=== PATIENT | male | born 1950 | race Caucasian/White ===

== ENCOUNTER → 2016-10-23 | Outpatient (CLI) | payer MEDICARE ==
--- NOTE | 2016-10-23 12:23 | MR ---
EXAMINATION TYPE: MR lumbar spine wo con DATE OF EXAM: 10/23/2016 COMPARISON: NONE HISTORY: HNP Lspine, Pain CONTRAST: 0 mL intravenous MultiHance. TECHNIQUE: Multiplanar, multisequence images of the lumbar spine were acquired. FINDINGS: L5-S1: There is a small central protrusion. No thecal sac contact is evident. Exiting nerve roots delmi ear normal. No spinal canal stenosis or neural foraminal stenosis is present. L4-L5: There is a large left paracentral disc herniation. This has anterior thecal sac contact. Exiti ng left L4 V nerve root displacement and compression is likely present. Left exiting nerve root is un remarkable. No AP spinal canal stenosis is present. L3-L4: Large broad-based disc bulge is present with anterior thecal sac contact. No AP spinal canal s tenosis present. This may have some subligamentous disc extension of the right paracentral canal post erior to the L3 level. Right L4 nerve root compression is likely present. Left L4 nerve root posterio r displacement is present. No AP spinal canal stenosis is present. L2-L3: There is narrowing of the disc height. No significant disc bulge is present. Mild facet hypert rophy is present on the right. No AP spinal canal stenosis present. Neural foramen are patent. L1-L2: Mild disc bulge is present with anterior thecal sac contact. This may be slightly greater into the right paracentral right lateral direction. Neural foramen are patent. Tiny central protrusion is present in the left paracentral canal with mild anterior thecal sac compression. T12-L1: No significant disc bulge or disc herniation. No spinal canal stenosis. No foraminal stenos is. Neural foramen are patent.. IMPRESSION: 1. Large disc bulge L4-5 with moderate anterior thecal sac compression. Right L4 and to the lesser de gree left L4 compression and displacement is present. 2. Large left paracentral disc herniation extending beyond the endplate of L5 compressing and displac ing the left exiting nerve root L5.
== END | disposition home or self-care (01) ==
LOC: RADMRIMAIN 09:55
PROVIDERS: ATTEND Orthopaedic Surgery Orthopaedic Surgery of the Spine
DX: M51.26 Other intervertebral disc displacement, lumbar region (principal); Z98.890 Other specified postprocedural states
CPT/HCPCS: 72148

== ENCOUNTER → 2018-06-02 | Day surgery (SDC) | payer MEDICARE ==
[2018-05-23 11:59] VITALS: BMI 29.4
[~2018-06-02] MED LIST: LIDOCAINE 1% INJ 10MG/ML (20 ML MDV) SQ ONE; SODIUM CHLORIDE 0.9% 1,000 ML IV SCH; ceFAZolin IN SWFI 2 GM/20 ML SYRINGE IVP ONE
[2018-06-02 13:55] VITALS: RESP 18; TEMP 98.2
--- NOTE | 2018-06-02 15:55 | P.PCN ---
Preoperative Diagnosis: Loop monitor implant Primary physicians: Cornell Weems Goldbeater: Dr. Friedman Indication: Detection of atrial fibrillation Patient was brought to the EP lab in a fasting state. Written informed consent was obtained prior to the procedure. The left pectoral area was prepped and draped per protocol. Intravenous antibiotic was administered preoperatively. A subcutaneous Loop monitor was implanted successfully and the wound was closed per protocol. The device was programmed to detect significant stefanie- arrhythmic and tachy-arrhythmic events, per protocol. Device and programming details: Detection of A. fib Patient underwent EP procedure under conscious sedation/moderate sedation, monitoring of the level of consciousness and physiologic parameters including but not limited to vital signs and oxygenation. Patient tolerated the procedure well without any acute complications. Start time: 1533 Stop time: 1544
[2018-06-02 16:54] VITALS: BP 158/76; PULSE 66
== END ==
LOC: CATHEP 13:06
PROVIDERS: ATTEND Internal Medicine Clinical Cardiac Electrophysiology
DX: I48.91 Unspecified atrial fibrillation (principal); I70.1 Atherosclerosis of renal artery; I12.9 Hypertensive chronic kidney disease with stage 1 through stage 4 chronic kidney disease, or unspecified chronic kidney disease; N18.4 Chronic kidney disease, stage 4 (severe); I47.1 Supraventricular tachycardia; I49.1 Atrial premature depolarization; E78.5 Hyperlipidemia, unspecified; I42.9 Cardiomyopathy, unspecified; I71.2 Thoracic aortic aneurysm, without rupture; Z79.899 Other long term (current) drug therapy; Z88.5 Allergy status to narcotic agent
CPT/HCPCS: 33285; C1764; J2001; J0690; 33282

== ENCOUNTER 2020-06-28 13:16 | Emergency (ER) | payer MEDICARE, BC ==
[2020-06-28 13:32] VITALS: BP 108/80; RESP 20; TEMP 97.8
--- NOTE | 2020-06-28 14:25 | ED ---
Extremity Problem HPI - General Chief complaint: Extremity Problem,Nontraumatic Stated complaint: reaction to meds Time Seen by Provider: 06/28/20 13:40 Source: patient Mode of arrival: wheelchair Limitations: no limitations - History of Present Illness Initial comments: Patient is a 69-year-old male presenting to the emergency Department with complaints of bilateral lower leg burning. Patient was picking up an outpatient pharmacy prescription when he suddenly had some burning in his legs. He just came from a wound center, they tried to apply Medi honey on his legs however he started having some burning sensation so they removed it, cleanse his legs and rewrapped. Patient was then sent to the pharmacy here at the hospital to pickup driver a new prescription. Patient then started screaming out in pain him to the ER for evaluation. Currently patient states he is feeling better, he currently has no more the burning sensation. He denies any other complaints at this time. He denies any recent fever or chills, he is currently seeing the wound center and does have a home visiting nurse. Denies chest pain or shortness of breath. His vitals are stable upon arrival. - Related Data Home Medications Medication Instructions Recorded Confirmed Omeprazole [PriLOSEC] 20 mg PO DAILY 06/23/14 08/18/19 amLODIPine [Norvasc] 10 mg PO DAILY 06/23/14 08/18/19 Metoprolol Succinate (ER) [Toprol 25 mg PO HS 05/23/18 08/18/19 Xl] Krill Oil 500 mg PO DAILY 07/06/19 08/18/19 Previous Rx's Medication Instructions Recorded hydrALAZINE HCL [Apresoline] 50 mg PO TID #90 tab 06/25/14 Allergies Allergy/AdvReac Type Severity Reaction Status Date / Time codeine AdvReac Itching Verified 06/28/20 13:32 Review of Systems ROS Statement: Those systems with pertinent positive or pertinent negative responses have been documented in the HPI. ROS Other: All systems not noted in ROS Statement are negative. 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 APPENDICITIS. History of Any Multi-Drug Resistant Organisms: None Reported Past Surgical History: Tonsillectomy Additional Past Surgical History / Comment(s): 4TH FINGER TOOK FINGER OFF WITH INJURY - RT HNAD PLATE SCREWS. KIDNEY STONE REMOVAL Past Anesthesia/Blood Transfusion Reactions: No Reported Reaction Past Psychological History: Anxiety Smoking Status: Never smoker Past Alcohol Use History: None Reported Past Drug Use History: None Reported - Past Family History Father Family Medical History: Cancer, Prostate Disorder Additional Family Medical History / Comment(s): PROSTATE CANCER, Mother Family Medical History: Cancer Additional Family Medical History / Comment(s): CANCER IN LYMPH NODE Sister(s) Family Medical History: Cancer Additional Family Medical History / Comment(s): OVARIAN CANCER General Exam - General Exam Comments Initial Comments: GENERAL: Patient is well-developed and well-nourished. Patient is nontoxic and in no acute distress. HEAD: Atraumatic, normocephalic. EYES: Pupils equal round and reactive to light, extraocular movements intact, sclera anicteric, conjunctiva are normal. Eyelids were unremarkable. ENT: TMs normal, nares patent, oropharynx clear without exudates. Moist mucous membranes. NECK: Normal range of motion, supple without lymphadenopathy or JVD. LUNGS: Unlabored respirations. Breath sounds clear to auscultation bilaterally and equal. No wheezes rales or rhonchi. HEART: Regular rate and rhythm without murmurs, rubs or gallops. ABDOMEN: Soft, nontender, normoactive bowel sounds. No guarding, no rebound. No masses appreciated. : Deferred MUSCULOSKELETAL: Normal extremities with adequate strength and normal range of motion, no pitting or edema. No clubbing or cyanosis. NEUROLOGICAL: Patient is alert and oriented x 3. Motor and sensory are also intact. Cranial nerves II through XII grossly intact. Symmetrical smile. Normal speech, normal gait. PSYCH: Normal mood, normal affect. SKIN: Warm, Dry, normal turgor. Patient's lower legs are wrapped in bandages, he did not want me to remove these bandages to look at his lower legs. Limitations: no limitations Course Vital Signs 06/28/20 06/28/20 13:26 14:41 Temperature 97.8 F Pulse Rate 114 H 91 Respiratory 20 Rate Blood Pressure 108/80 O2 Sat by Pulse 100 97 Oximetry Medical Decision Making - Medical Decision Making Patient is a 9-year-old male presenting to the ER with complaints of burning in his lower legs. He just came from the wound center. Upon my examination, he states he feels better and currently has no burning and wants to be discharged. He did have wraps and bandages on his legs, he did not want these to be removed to look at his legs. Rest of exam is unremarkable. Patient will be discharged. He'll follow up with wound care. Patient is stable for discharge. Patient is in agreement with this plan of care. Return parameters were discussed with the patient and they verbalized understanding. Case discussed with Dr. kim. Disposition Clinical Impression: Bilateral leg paresthesia Disposition: HOME SELF-CARE Condition: Stable Instructions (If sedation given, give patient instructions): Normal Exam (ED) Additional Instructions: Please return to the Emergency Department if symptoms worsen or any other concerns. Please follow up with your regular doctor as well as wound care. Is patient prescribed a controlled substance at d/c from ED?: No Referrals: Dank Sarabia MD [Primary Care Provider] - 1-2 days
[2020-06-28 14:52] VITALS: PULSE 91
== END 2020-06-28 14:42 | disposition home or self-care (01) ==
LOC: EC 13:16
DX: R20.2 Paresthesia of skin (principal); K21.9 Gastro-esophageal reflux disease without esophagitis; I10 Essential (primary) hypertension; G47.33 Obstructive sleep apnea (adult) (pediatric); Z79.899 Other long term (current) drug therapy; Z99.89 Dependence on other enabling machines and devices; Z88.5 Allergy status to narcotic agent
CPT/HCPCS: 99283

== ENCOUNTER → 2020-10-31 | Day surgery (SDC) | payer MEDICARE, BC ==
[~2020-10-31] MED LIST changes: +LACTATED RINGERS 1,000 ML IV SCH; -LIDOCAINE 1% INJ 10MG/ML (20 ML MDV) SQ ONE; +SODIUM CHLORIDE 0.9% 500 ML 500 ML IV ONE; -ceFAZolin IN SWFI 2 GM/20 ML SYRINGE IVP ONE
[2020-10-31 12:40] VITALS: BP 164/97; PULSE 68; RESP 16; TEMP 98.7
[2020-10-31 12:48] LABS: INR 1.2 (<1.2); Prothrombin Time 12.7 sec (9.0-12.0)
[2020-10-31 12:52] LABS: Calcium 9.3 mg/dL (8.4-10.2); Potassium 3.6 mmol/L (3.5-5.1)
--- NOTE | 2020-10-31 13:58 | P.PCN ---
Preoperative Diagnosis: Procedure was canceled on account of a subtherapeutic INR The patient has had a subtherapeutic INR in September he did not return her p carolee calls nor did he come to the office to get his INRs checked Plan We will call them again today at home to confirm all his medications and the doses He is getting warfarin 2.5 mg tablets. He will take one half tablets daily He will get an INR checked next week with the [address] Amiodarone dose is being reduced to 200 mg by mouth daily All other cardiac medications to continue
== END ==
LOC: CATHEP 11:41
PROVIDERS: ATTEND Internal Medicine Clinical Cardiac Electrophysiology
DX: I48.19 Other persistent atrial fibrillation (principal); E78.5 Hyperlipidemia, unspecified; I12.9 Hypertensive chronic kidney disease with stage 1 through stage 4 chronic kidney disease, or unspecified chronic kidney disease; N18.4 Chronic kidney disease, stage 4 (severe); I42.9 Cardiomyopathy, unspecified; G47.33 Obstructive sleep apnea (adult) (pediatric); K21.9 Gastro-esophageal reflux disease without esophagitis; I47.1 Supraventricular tachycardia; I44.0 Atrioventricular block, first degree; I08.3 Combined rheumatic disorders of mitral, aortic and tricuspid valves; Z88.5 Allergy status to narcotic agent; Z79.899 Other long term (current) drug therapy; Z99.2 Dependence on renal dialysis; Z20.822 Contact with and (suspected) exposure to COVID-19; Z53.9 Procedure and treatment not carried out, unspecified reason
CPT/HCPCS: 80048; 85610; 87635

== ENCOUNTER → 2021-12-11 | Day surgery (SDC) | payer MEDICARE, BC ==
[2021-12-07 10:52] VITALS: BMI 28.8
[~2021-12-11] MED LIST changes: +DEXAMETHASONE SOD PHOSPHATE 4 MG/ML 1 ML VIAL IV ONE; +GELATIN SPONGE,ABSORB (LARGE) 1 EACH SPONGE TOPICAL ONE; +GLYCOPYRROLATE 0.2 MG/ML 2 ML VIAL ONE; +HEPARIN SODIUM,PORCINE 2,000 UNIT in SODIUM CHLORIDE 0.9% 500 ML 500 ML IRRIGATION ONE; +HYDROmorphone 0.5 MG/0.5 ML SYRINGE IVP PRN; +KETAMINE 10 MG/ML 20 ML VIAL ONE; +LABETALOL SYRINGE 5 MG/ML IVP ONE; +LIDOCAINE 1% (10MG/ML) FOR IV START INTRADERMA PRN; +LIDOCAINE 1% INJ 10MG/ML (20 ML MDV) SQ ONE; +MIDAZOLAM 2 MG/2 ML VIAL IVP ONE; +MIDAZOLAM 2 MG/2 ML VIAL ONE; +ONDANSETRON 4 MG/2 ML VIAL IVP ONE; +ONDANSETRON 4 MG/2 ML VIAL IVP PRN; +PROPOFOL 10 MG/ML 20 ML VIAL IV ONE; +ROPIVACAINE 5 MG/ML 30 ML VIAL ONE; +SODIUM CHLORIDE 0.9% 1,000 ML IV ONE; -SODIUM CHLORIDE 0.9% 1,000 ML IV SCH; -SODIUM CHLORIDE 0.9% 500 ML 500 ML IV ONE; +THROMBIN (BOVINE) 5,000 UNIT VIAL TOPICAL ONE; +ceFAZolin 2,000 MG in SODIUM CHLORIDE 0.9% 500 ML 500 ML IRRIGATION ONE; +fentaNYL (PF) 50 MCG/ML 2 ML AMP IVP ONE; +fentaNYL (PF) 50 MCG/ML 2 ML AMP ONE
[2021-12-11 13:01] LABS: HCT 38.1 % (39.0-53.0); HGB 12.4 gm/dL (13.0-17.5); MCH 30.9 pg (25.0-35.0); MCHC 32.6 g/dL (31.0-37.0); MCV 94.8 fL (80.0-100.0); Mean Platelet Volume 8.4; Platelet Count 201 k/uL (150-450); RBC 4.02 m/uL (4.30-5.90); RDW 14.3 % (11.5-15.5); WBC 9.6 k/uL (3.8-10.6)
[2021-12-11 13:09] LABS: Calcium 8.9 mg/dL (8.4-10.2); Potassium 4.2 mmol/L (3.5-5.1)
[2021-12-11 13:34] LABS: INR 1.4 (<1.2); Prothrombin Time 14.9 sec (9.0-12.0)
--- NOTE | 2021-12-11 15:04 | P.ANPRN ---
Procedure Note - Anesthesia - Nerve Block Performed Left Supraclavicular Single Date of Procedure: 12/11/21 Procedure Start Time: 14:40 Procedure Stop Time: 14:49 Location of Patient: PreOp Indication: Acute Post-Operative Pain, Requested by Surgeon Specifically requested for management of pain by DrOphelia: Ac Duque Sedation Type: Sedate with meaningful contact maintained Preparation: Sterile Prep Position: Sitting Needle Types: Facet Needle Gauge: 20 Ultrasound used to visualize needle placement: Yes Ultrasound used to observe medication spread: Yes Injectate: 0.5% Ropivacaine (see comment for volume) Blood Aspirated: No Pain Paresthesia on Injection Noted: No Resistance on Injection: Normal Image Stored and Saved: Yes Events: Uneventful and Well Tolerated (25 mls of Ropivacaine 0.5%)
[2021-12-11 18:54] VITALS: TEMP 96.7
[2021-12-11 19:08] VITALS: RESP 16
[2021-12-11 19:35] VITALS: BP 139/87; PULSE 95
--- NOTE | 2021-12-12 17:43 | P.OP ---
Date of Procedure: 12/11/21 Preoperative Diagnosis: ESRD Postoperative Diagnosis: same Procedure(s) Performed: Left upper extremity brachiocephalic fissure creation Anesthesia: regional, local Surgeon: Ac Duque Estimated Blood Loss (ml): 25 Pathology: none sent Condition: stable Disposition: PACU Indications for Procedure: 71-year-old gentleman with history of ESRD on hemodialysis via a right-sided chest catheter as well as previous Endovascular fistula creation on the left presents to the hospital for brachiocephalic fistula due to the fact that his previous fistula has failed. He had ultrasound that demonstrated good size cephalic vein above the elbow and therefore he presents for brachiocephalic fistula creation. Operative Findings: Dense adhesions and scarring at the brachial artery due to previous interventions. Description of Procedure: After written and informed consent was obtained from the patient the patient was brought to the operative suite and laid in a supine position. The left arm was prepped and draped in the usual sterile fashion after appropriate anesthesia was performed per the anesthesiologist. Utilizing ultrasound the cephalic vein was visualized and marked and shown to be good size. A transverse incision was then created with a 15 blade scalpel just proximal to the elbow and dissection was carried down to the brachial artery which was dissected free in a circumferential manner. Proximal distal control was then obtained with vessel loops. Attention was then placed back to the cephalic vein which was located and dissected free in a circumferential manner distally to the elbow. At the elbow it was ligated with silk suture. Further dissection was carried around the vein and the vein was brought over to the brachial artery. Serial dilation was then performed on the vein and good backbleeding was noted. Patient was administered 3000 units of heparin and the brachial artery was clamped at the proximal and distal aspect. Utilizing 11 blade scalpel and arteriotomy was created and extended with Pott Noland scissors. There was good brisk backbleeding noted from the brachial artery and pulsatile blood flow visualized from the proximal aspect. The vein was then spatulated and an end-to-side anastomosis was created with a 7-0 Prolene suture. Prior to last sutures being placed the control was released from the vein revealing good backbleeding and distal control on the brachial artery was released revealing good back flow. The proximal control was then released and good pulsatile blood flow was visualized in the fistula and final sutures were secured. The area was copiously irrigated with antibiotic solution. Hemostasis was assured. The vessels were then interrogated with Doppler which demonstrated good multiphasic signal distal to the anastomosis as well as positive bruit within the vein consistent with good fistula creation. Under ultrasound there was pulsatile flow noted in the cephalic vein. The incision was then closed in a multilayer fashion. The skin was cleansed and dressings were placed. Patient does procedure well and was sent to PACU for recovery.
== END ==
LOC: OR 11:37
PROVIDERS: ATTEND Surgery
DX: T82.898A Other specified complication of vascular prosthetic devices, implants and grafts, initial encounter (principal); I12.0 Hypertensive chronic kidney disease with stage 5 chronic kidney disease or end stage renal disease; N18.6 End stage renal disease; Z99.2 Dependence on renal dialysis; I25.10 Atherosclerotic heart disease of native coronary artery without angina pectoris; I10 Essential (primary) hypertension; K21.9 Gastro-esophageal reflux disease without esophagitis; I48.91 Unspecified atrial fibrillation; E21.3 Hyperparathyroidism, unspecified; G62.9 Polyneuropathy, unspecified; G47.33 Obstructive sleep apnea (adult) (pediatric); N28.89 Other specified disorders of kidney and ureter; E55.9 Vitamin D deficiency, unspecified; Z98.890 Other specified postprocedural states; Z80.9 Family history of malignant neoplasm, unspecified; Z95.818 Presence of other cardiac implants and grafts; Z79.82 Long term (current) use of aspirin; Z79.01 Long term (current) use of anticoagulants; Z79.899 Other long term (current) drug therapy; Z88.5 Allergy status to narcotic agent; Z91.018 Allergy to other foods
CPT/HCPCS: 64999; 80048; 85027; 85610; 36821; J2250; J1644; J1100; J0690 ×2; J2405; J3010; J2795; J2704

== ENCOUNTER → 2023-01-17 | Outpatient (CLI) | payer MEDICARE, BC ==
--- NOTE | 2023-01-17 12:38 | CT ---
EXAMINATION TYPE: CT chest w con CT DLP: 461.3 mGycm, Automated exposure control for dose reduction was used. DATE OF EXAM: 01/17/2023 12:20 PM COMPARISON: None CLINICAL INDICATION:Male, 72 years old with history of C64.1 KIDNEY CA D41.02; PHH, renal ca TECHNIQUE: Multiple axial images were obtained through the chest following the administration of 80 c c of Isovue 300. Coronal and sagittal reformats reviewed. FINDINGS: LUNGS/ PLEURA: No pleural effusion, pneumothorax, focal consolidation. Left upper lobe 0.9 cm pulmona ry nodule (series 3, image 31). AIRWAY: Patent and unremarkable.. HEART: Mildly prominent. No pericardial effusion. Moderate coronary artery calcifications. MEDIASTINUM: No gross evidence of adenopathy. VASCULATURE: Aneurysm dilatation of the ascending thoracic aorta measuring up to 4.2 cm. Ectasia of the aortic root at 3.9 cm. The descending thoracic aorta measures up to 2.8 cm. Mild atherosclerotic calcification of the aorta and its branches. MUSCULOSKELETAL: Mild disc degeneration changes are present throughout the thoracolumbar spine. No ac garrett osseous abnormality. No aggressive osseous lesion. SOFT TISSUES/LYMPH NODES: Loop recorder within the left chest wall. LOWER NECK: No significant findings. UPPER ABDOMEN: Please see CT abdomen from the same date for findings. IMPRESSION: 1. No acute thoracic process. 2. Single left upper lobe 0.9 cm pulmonary nodule. Further evaluation with PET/CT is recommended. 3. Ascending thoracic aortic aneurysm measuring up to 4.2 cm.
--- NOTE | 2023-01-17 12:49 | CT ---
EXAMINATION TYPE: CT abdomen wo/w con CT DLP: 1870 mGycm, Automated exposure control for dose reduction was used. DATE OF EXAM: 01/17/2023 12:20 PM COMPARISON: CT abdomen pelvis 06/24/2014 CLINICAL INDICATION:Male, 72 years old with history of C64.1 KIDNEY CA D41.02; renal ca TECHNIQUE: Multiphase CT of the abdomen following the administration of 80 cc of Isovue 300 IV contr ast material and oral contrast. Coronal and sagittal reformats were performed. FINDINGS: LOWER CHEST: Please see dedicated CT chest for findings ABDOMEN LIVER: Unremarkable GALLBLADDER AND BILE DUCTS: Cholelithiasis. No biliary ductal dilatation. PANCREAS: Unremarkable. SPLEEN: Unremarkable. ADRENAL GLANDS: Unremarkable. KIDNEYS AND URETERS: No hydronephrosis. Atrophy of both kidneys. Nonobstructive left renal calculi m easuring up to 3 mm. A total of 3 left calculi. Left exophytic superior pole 1.7 cm cyst. Hyperdense nonenhancing 1.3 cm partially exophytic right mid kidney proteinaceous/hemorrhagic cyst. Additional n onenhancing right superior pole partially exophytic 0.9 cm pronation/hemorrhagic cyst. Left mid kidne y exophytic 1.1 cm nonenhancing cyst. Left lower pole exophytic nonenhancing 2.0 cm hemorrhagic/prote inaceous cyst. Right superior pole irregular heterogenous lytic enhancing partially exophytic mass wi th calcification identified measuring 4.1 x 3.7 cm. STOMACH AND BOWEL: Stomach and duodenum are unremarkable. No focal wall thickening or surrounding inf lammatory changes. The appendix is within normal limits. No evidence of bowel obstruction. PERITONEUM: No evidence of pneumoperitoneum or free fluid. VASCULATURE: Mild atherosclerotic calcifications are present throughout the abdominal aorta and its b ranches. No evidence of aortic aneurysm. MUSCULOSKELETAL: No acute osseous abnormalities. Moderate disc degeneration changes are present throu ghout the thoracolumbar spine. Grade 1 anterolisthesis of L5 and S1 with bilateral pars defects. Telemarketing Representative laure superior endplate compression deformity of the L2 vertebral body with approximately 10% height lo ss and no retropulsion. Levoscoliotic curvature of the thoracolumbar spine. No aggressive osseous les ion. LYMPH NODES: No gross evidence for lymphadenopathy. SOFT TISSUE/ABDOMINAL WALL: Unremarkable IMPRESSION: 1. Right superior pole exophytic heterogenous enhancing 4.1 cm mass concerning for renal cell carcin cristino. 2. Bilateral hyperdense renal lesions without enhancement consistent with proteinaceous/hemorrhagic c yst. 3. Nonobstructive left renal calculi. 4. No pathologically enlarged lymph nodes identified. 5. Cholelithiasis.
== END | disposition home or self-care (01) ==
LOC: RADCTMAIN 10:54
PROVIDERS: ATTEND Urology
DX: C64.1 Malignant neoplasm of right kidney, except renal pelvis (principal); D41.02 Neoplasm of uncertain behavior of left kidney; I71.21 Aneurysm of the ascending aorta, without rupture; N20.0 Calculus of kidney; N28.89 Other specified disorders of kidney and ureter; K80.20 Calculus of gallbladder without cholecystitis without obstruction; R91.1 Solitary pulmonary nodule
CPT/HCPCS: 71260; 74170; Q9967

== ENCOUNTER → 2023-03-14 | Outpatient (CLI) | payer MEDICARE, BC ==
--- NOTE | 2023-03-15 12:20 | PE ---
EXAMINATION TYPE: PET CT fusion skull to thigh DATE OF EXAM: 03/14/2023 CLINICAL INDICATION:Male, 72 years old with history of C64.9; TECHNIQUE: Following the intravenous administration of 11.39 mCi of F-18 FDG, whole body images are performed from the skull base to the midthigh. Images are reviewed on the computer in the coronal, axial, and sagittal planes. Reconstructed rotating images are created on independent workstation and reviewed on the computer. A non-contrast CT is performed in conjunction with the PET scan. Glucose level 111 mg/dL CT DLP: 706.4 mGycm, Automated exposure control for dose reduction was used. COMPARISON: CT 01/17/2023, PET/CT None, FINDINGS: Mediastinal SUV mean is 2.8. Hepatic parenchyma SUV mean is 3.4. SKULL BASE AND NECK: No suspicious radiotracer activity. CHEST, MEDIASTINUM, AND HILAR REGION: Similar size to the left upper lobe pulmonary nodule Max SUV 1.9. No additional suspicious lesions. ABDOMEN AND PELVIS: No suspicious radiotracer activity. MUSCULOSKELETAL STRUCTURES: No suspicious radiotracer activity. OTHER CT: Heart is mildly enlarged for size. Atherosclerosis of the arterial vasculature including th e carotid bifurcations and coronary arteries. Cholelithiasis. Atrophic kidneys with renal cysts and n onobstructing calculi. Fat-containing inguinal hernias right greater than left. Few scattered colonic diverticula. Small hiatal hernia. IMPRESSION: Left upper lobe pulmonary nodule with FDG activity below background levels. Size is stable. Surveilla nce imaging at a minimum should be performed in 3-6 months to ensure stability. Bronchoalveolar carci noma can have low metabolic activity versus granulomatous change is the differential. Alternatively c onsider robotic tissue sampling.
== END | disposition home or self-care (01) ==
LOC: RADPETMAIN 06:56
PROVIDERS: ATTEND Urology
DX: C64.9 Malignant neoplasm of unspecified kidney, except renal pelvis (principal); R91.1 Solitary pulmonary nodule
CPT/HCPCS: 78815; A9552

== ENCOUNTER → 2023-10-27 | Outpatient (CLI) | payer MEDICARE, BC ==
--- NOTE | 2023-10-28 13:48 | PE ---
EXAMINATION TYPE: PET CT fusion skull to thigh DATE OF EXAM: 10/27/2023 COMPARISON: CT abdomen 01/17/2023 Prior PET/CT: 03/14/2023 HISTORY: Right renal cancer TECHNIQUE: Following the intravenous administration of 12.87 mCi of F-18 FDG, whole body images are performed from the skull base to the midthigh. Images are reviewed on the computer in the coronal, a xial, and sagittal planes. Reconstructed rotating images are created on independent workstation and reviewed on the computer. A localization and attenuation correction CT is performed in conjunction with the PET scan. There appears to be multiple areas of muscular activity. This limits the examination. DLP: 742.85 mGycm SCAN: Subsequent Blood glucose: 171 mg/dL Average Mediastinum SUV: 1.72 Average Liver SUV: 2.38 FINDINGS: NECK: There is some uptake within the anterior left submandibular gland, image 48, SUV 3.22. THORAX: Suspicious uptake not identified ABDOMEN: There is focal uptake in the superior medial right kidney compatible with the patient's repo rted neoplasm. This has an SUV of 4.06. PELVIS: No abnormal uptake OSSEOUS STRUCTURES: No abnormal uptake LOCALIZATION CT: Prostate is prominent. There is likely spondylolysis at L5. Nonobstructing renal sto miles on the posterior lateral left mid kidney. Kidneys appear small compatible some renal failure. Cho lelithiasis is present. COMPARISON: Findings appear similar comparison suspicious change is not identified. IMPRESSION: 1. Uptake within the superior medial pole right kidney compatible with the patient's renal neoplasm. 2. Suspicious metastatic disease not identified. 3. Examination is limited with excessive muscular activity and uptake identified.
== END | disposition home or self-care (01) ==
LOC: RADPETMAIN 07:53
PROVIDERS: ATTEND Urology
DX: C64.1 Malignant neoplasm of right kidney, except renal pelvis (principal)
CPT/HCPCS: 78815; A9552

== ENCOUNTER → 2024-08-13 | Outpatient (CLI) | payer MEDICARE, BC ==
--- NOTE | 2024-08-14 22:35 | PE ---
EXAMINATION TYPE: PET CT fusion skull to thigh DATE OF EXAM: 08/13/2024 CLINICAL INDICATION:Male, 74 years old with history of C64.1 KIDNEY CANCER; TECHNIQUE: Following the intravenous administration of 10.03 mCi of F-18 FDG, whole body images are performed from the skull base to the midthigh. Images are reviewed on the computer in the coronal, axial, and sagittal planes. Reconstructed rotating images are created on independent workstation and reviewed on the computer. A non-contrast CT is performed in conjunction with the PET scan. Glucose level 93 mg/dL CT DLP: 797.19 mGycm, Automated exposure control for dose reduction was used. COMPARISON: CT 07/15/2024, 01/17/2023, PET/CT 10/27/2023, 03/14/2023, MRI: None FINDINGS: Mediastinal SUV mean is 2.0. Hepatic parenchyma SUV mean is 2.4. SKULL BASE AND NECK: No suspicious radiotracer activity. CHEST, MEDIASTINUM, AND HILAR REGION: Mildly increased size of lingular 1.3 cm solid pulmonary nodule dating back to CT chest 01/17/2023. Pr eviously measured up to 1.0 cm. This demonstrates a maximum SUV of 2.7, previously 0.9. ABDOMEN AND PELVIS: Redemonstration of right renal upper pole mass measuring grossly 4.9 x 4.0 cm with FDG activity. Demo nstrates a maximum SUV of 7.2, previously 4.3. MUSCULOSKELETAL STRUCTURES: Post fixation changes of the right proximal femur with redemonstration of focal FDG activity at the f racture site with a maximum SUV of 7.4. Previously 3.8. Favored to be related to traumatic change. No other suspicious radiotracer activity within the osseous structures. OTHER CT: Bilateral carotid bulb calcifications. Left anterior chest wall loop recorder. Cardiomegaly with trace pericardial effusion. Small right pleural effusion. Mild coronary artery calcifications. Stable ascending thoracic aortic aneurysm measuring up to 4.5 cm. Stable aneurysmal dilatation of the main pulmonary measurement of 4.0 cm suggesting pulmonary arterial hypertension. Small aortic valvul ar calcifications. Mild atherosclerotic calcification of the aorta and its branches. Multilevel degen erative changes of the lumbar spine. Cholelithiasis. Atrophy of both kidneys with cortical cysts. Non obstructing bilateral renal calculi. Fat filled right inguinal hernia. Scattered colonic diverticulos is of the distal colon without evidence for acute diverticulitis. IMPRESSION: 1. Increasing size and FDG activity of a right renal upper pole mass most consistent with reported r enal cell cancer. 2. Marginal increase in size and mildly FDG activity of lingular pulmonary nodule from prior CT. Thi s is indeterminate with etiologies including metastasis versus primary lung cancer versus other. [facility], , 08/14/2024 10:33 PM
== END | disposition home or self-care (01) ==
LOC: RADPETMAIN 08:17
PROVIDERS: ATTEND Urology
DX: C64.1 Malignant neoplasm of right kidney, except renal pelvis (principal); R91.1 Solitary pulmonary nodule; K57.30 Diverticulosis of large intestine without perforation or abscess without bleeding; K40.90 Unilateral inguinal hernia, without obstruction or gangrene, not specified as recurrent; N20.0 Calculus of kidney; N28.1 Cyst of kidney, acquired
CPT/HCPCS: 78815; A9552

== ENCOUNTER 2024-09-24 10:52 | Day surgery (SDC) | payer MEDICARE, BC ==
[2024-09-23 12:40] VITALS: BMI 30.5
[~2024-09-24 10:52] MED LIST changes: -GELATIN SPONGE,ABSORB (LARGE) 1 EACH SPONGE TOPICAL ONE; -GLYCOPYRROLATE 0.2 MG/ML 2 ML VIAL ONE; -HEPARIN SODIUM,PORCINE 2,000 UNIT in SODIUM CHLORIDE 0.9% 500 ML 500 ML IRRIGATION ONE; -KETAMINE 10 MG/ML 20 ML VIAL ONE; -LABETALOL SYRINGE 5 MG/ML IVP ONE; -LIDOCAINE 1% (10MG/ML) FOR IV START INTRADERMA PRN; -LIDOCAINE 1% INJ 10MG/ML (20 ML MDV) SQ ONE; -MIDAZOLAM 2 MG/2 ML VIAL IVP ONE; -MIDAZOLAM 2 MG/2 ML VIAL ONE; -ONDANSETRON 4 MG/2 ML VIAL IVP PRN; -PROPOFOL 10 MG/ML 20 ML VIAL IV ONE; -ROPIVACAINE 5 MG/ML 30 ML VIAL ONE; -SODIUM CHLORIDE 0.9% 1,000 ML IV ONE; -THROMBIN (BOVINE) 5,000 UNIT VIAL TOPICAL ONE; -ceFAZolin 2,000 MG in SODIUM CHLORIDE 0.9% 500 ML 500 ML IRRIGATION ONE; -fentaNYL (PF) 50 MCG/ML 2 ML AMP IVP ONE; -fentaNYL (PF) 50 MCG/ML 2 ML AMP ONE
[2024-09-24] MEDS: IV FLUID CONTINUATION 1,000 ML IV ONE (11:59)
[2024-09-24] MEDS: SODIUM CHLORIDE 0.9% 500 ML 500 ML IV ONE (12:01)
[2024-09-24] MEDS ORDERED: ePHEDrine 50 MG/ML 1 ML VIAL ONE (12:08)
[2024-09-24] MEDS ORDERED: PHENYLEPHRINE 10 MG/ML VIAL ONE (12:08)
[2024-09-24] MEDS ORDERED: FLUMAZENIL 0.1 MG/ML 5 ML VIAL IVP ONE (12:08)
[2024-09-24] MEDS ORDERED: LIDOCAINE 1% INJ 10MG/ML (20 ML MDV) ONE (12:08)
[2024-09-24] MEDS ORDERED: SUCCINYLCHOLINE CHLORIDE 200 MG/10 ML VIAL IV ONE (12:08)
[2024-09-24] MEDS ORDERED: GLYCOPYRROLATE 0.2 MG/ML 2 ML VIAL ONE (12:08)
[2024-09-24] MEDS ORDERED: PROPOFOL 10 MG/ML 20 ML VIAL IV ONE (12:08)
[2024-09-24] MEDS ORDERED: ROCURONIUM 10 MG/ML (5 ML VIAL) IV ONE (12:08)
[2024-09-24] MEDS ORDERED: fentaNYL (PF) 50 MCG/ML 2 ML AMP ONE (12:08)
[2024-09-24] MEDS ORDERED: NEOSTIGMINE 1 MG/ML 10 ML VIAL ONE (12:08)
[2024-09-24] MEDS ORDERED: MIDAZOLAM 2 MG/2 ML VIAL ONE (12:08)
--- NOTE | 2024-09-24 13:33 | P.PCN ---
Date of Procedure: 09/24/24 Operative Findings: Preoperative Diagnosis: Lingular mass, 11x11 mm in size, PET avid Postoperative Diagnosis: Same Procedure(s) Performed: Flexible bronchoscopy Robotic-assisted bronchoscopy and addition to radial ultrasound evaluation of the pulmonary lingular nodule Robotic-assisted transbronchial biopsies, transbronchial needle aspirate of lingular nodule Robotic assisted bronchioloalveolar lavage of the lingular Anesthesia: CARMITAA Surgeon: Johnna Campbell Estimated Blood Loss (ml): 0 Pathology: other Condition: stable Disposition: same day Operative Findings: A physical exam was performed. Informed consent was obtained from the patient after explaining all the risks (pneumothorax, life threatening bleeding, infection and adverse effects due to medications), benefits and alternatives to the procedure which the patient appeared to understand and so stated. The patient was connected to the monitoring devices. General anesthesia was induced and the patient was intubated by anesthesia. A final timeout was performed and the procedure confirmed by the attending staff bronchoscopist. The bronchoscope was inserted and the airway examined. The trachea was within normal limits. Bridget was sharp. Examination of the right setting of the right upper lobe bronchus, bronchus intermedius, right middle lobe and right lower lobe bronchus and the various 10 segments on the right and one of the obstruction within normal limits. Examination of the left side showed a normal proximal left mainstem bronchus. The left upper lobe bronchus, the left lower lobe bronchus and the various 8 segments on the left were essentially within normal limits. There was no evidence of any endobronchial tumors. No significant mucosal abnormalities. The flexible bronchoscope was removed and the robotic bronchoscope was inserted. Registration was completed. I next guided the robotic bronchoscope using the navigation system into the superior segment of the lingular segment. Once in proper position, the bronchoscope was frozen. The radial EBUS probe was placed through the bronchoscope and confirmed abnormal u/s images vs normal lung. Bone removed U/S evaluation was then used to reconfirm location. Transbronchial needle aspirate of the lingular mass was done, a total of 2 passes and the adequacy of the samples were confirmed by pathology at the bedside. The transbronchial needle aspirate was done using a 21-gauge needle. Subsequently, an additional 2 transbronchial needle aspirates of the lingular mass was done in the samples were placed in cellblock. Forceps were next introduced through working channel and extended the appropriate distance and 2 transbronchial biopsies were performed using fluoroscopic guidance. The u/s probe was then reinserted to confirm location. When confirmed this process was repeated for a total of 6 transbronchial biopsies and a cloud biopsy of the area was done. Following that, a BAL of the left upper lobe was also done. A total of 60 cc of fluid was infused and 10 cc was aspirated and the aspirate was bloody amd it clotted Fluoroscopic check for pneumothorax was negative upon completion of the procedure. There was 0 ml blood loss with the procedure. The robotic catheter was removed. The flexible bronchoscope was inserted. Therapeutic airway suctioning was done. There was no evidence of an endobronchial bleed. The flexible bronchoscope was removed. FINDINGS: 1 The airways appeared normal 2 Successful navigation, ultrasonographic identification, and biopsies of lingular nodule 3 The the radial ultrasound view was concentric RECOMMENDATIONS: Await pathology and cytology results The referring physician will be alerted to the results when available. The patient was advised to follow up with the referring physician with the biopsy results
--- NOTE | 2024-09-24 13:41 | FL ---
EXAMINATION TYPE: FL bronchoscopy DATE OF EXAM: 09/24/2024 FLUOROSCOPY BRONCH LEFT UPPER LOBE W/ BX TAKEN FL TIME 1 MIN 21.9 SECONDS, DAP [id number], 6 IMAGES SENT INTO PACS, DR MCMILLAN 6 images are submitted and demonstrate sampling from the left lower lung. A loop recorder device is n oted. [facility], Workstation: [facility], 09/24/2024 1:39 PM
[2024-09-24 14:14] VITALS: TEMP 97.1
--- NOTE | 2024-09-24 14:27 | XR ---
EXAMINATION TYPE: XR chest 1V DATE OF EXAM: 09/24/2024 COMPARISON: NONE CLINICAL INDICATION: Male, 74 years old with history of post bx; TECHNIQUE: Single frontal view of the chest is obtained. FINDINGS: Heart moderately enlarged. Loop recorder device projects over the left side of the chest. Diffuse interstitial densities without consolidation, pleural effusion, or pneumothorax. IMPRESSION: Moderate cardiomegaly. With the interstitial densities, correlate to exclude developing CHF. No pneumothorax seen. [facility], , 09/24/2024 2:25 PM
[2024-09-24 15:00] VITALS: RESP 16
[2024-09-24 15:17] VITALS: BP 133/75; PULSE 65
--- NOTE | 2024-09-24 15:42 | CT ---
EXAMINATION TYPE: CT Chest wo ION protocol DATE OF EXAM: 09/24/2024 11:29 AM COMPARISON: Head CT 08/13/2024 Multiple CTs of the chest with most recent on . CLINICAL INDICATION: Male, 74 years old with history of ION bronchoscopy; [facility], PRE ION BRONCHOSCOPY TECHNIQUE: Multiple axial images were obtained through the chest. Sagittal and coronal reformats were created for review. Thin cut sections for bronchoscopic navigation. No contrast. CT DLP: 562 mGycm, Automated exposure control for dose reduction was used. FINDINGS: Heart remains borderline enlarged with three-vessel coronary artery calcifications. No pericardial ef fusion. Mild aortic valve calcification. A large caliber main right and left pulmonary arteries measuring up to 2.8 cm suggest underlying pulm onary arterial hypertension. Aneurysm ascending aorta 4.3 cm. Conventional arch vessel branching anatomy. Scattered prominent nonenlarged mediastinal lymph nodes throughout. Mild emphysematous change. Mild diffuse bronchial wall thickening. Loop recorder device anterior left chest wall. Redemonstrated 1.4 cm inferior lingular pulmonary nodule. Some mild septal lines and int erstitial changes of the lower lungs could represent some mild fibrosis or mild pulmonary vascular co ngestion. Tiny hiatal hernia. Partially visualized upper pole right renal mass. Underlying gallstones measuring up to 1.9 cm. Bilateral renal cysts also noted. Bones: DISH lower thoracic spine. Mild superior endplate deformity at T4 has a chronic appearance. IMPRESSION: 1. 1.4 cm inferior lingular pulmonary nodule. Imaging for endobronchial navigation biopsy. Partially visualized right upper pole renal mass. 2. COPD with mild emphysema. Pulmonary arterial hypertension. Borderline cardiomegaly, 3 vessel CAD, and some mild interstitial changes of the lower lungs. Correlate to exclude early fluid overload. 3. Tiny hiatal hernia and underlying cholelithiasis. [facility], , 09/24/2024 3:39 PM
== END 2024-09-24 15:49 | disposition home or self-care (01) ==
LOC: ORWHC2ENDO 10:52
PROVIDERS: ATTEND Internal Medicine Critical Care Medicine
DX: D76.3 Other histiocytosis syndromes (principal); R04.89 Hemorrhage from other sites in respiratory passages; I48.20 Chronic atrial fibrillation, unspecified; I13.2 Hypertensive heart and chronic kidney disease with heart failure and with stage 5 chronic kidney disease, or end stage renal disease; I50.9 Heart failure, unspecified; N18.6 End stage renal disease; Z99.2 Dependence on renal dialysis; I25.10 Atherosclerotic heart disease of native coronary artery without angina pectoris; I27.21 Secondary pulmonary arterial hypertension; E78.00 Pure hypercholesterolemia, unspecified; G47.33 Obstructive sleep apnea (adult) (pediatric); J43.9 Emphysema, unspecified; K21.9 Gastro-esophageal reflux disease without esophagitis; D64.9 Anemia, unspecified; F41.9 Anxiety disorder, unspecified; Z79.01 Long term (current) use of anticoagulants; Z79.899 Other long term (current) drug therapy; Z85.528 Personal history of other malignant neoplasm of kidney; Z88.5 Allergy status to narcotic agent
CPT/HCPCS: 88305; 88342; 88341; 71045; 71250; 31628; 31629; 31624; 31627; 31654; J2250; J0330; J2710; J2003; J3010; J2704; J2371; J1596; S2900

== ENCOUNTER 2024-09-25 19:02 | Inpatient (IN) | payer MEDICARE, BC ==
--- NOTE | 2024-09-25 19:50 | ED ---
Nausea/Vomiting/Diarrhea HPI - General Chief complaint: Nausea/Vomiting/Diarrhea Stated complaint: NVD Time Seen by Provider: 09/25/24 19:13 Source: patient, EMS, RN notes reviewed Mode of arrival: EMS Limitations: no limitations - History of Present Illness Initial comments: This is a 74-year-old male who presents to the emergency department for nausea, vomiting, and diarrhea. Patient states that this started 2 days ago. He last threw up this morning but does not currently feel nauseous. He had a bronchoscopy yesterday due to a lung mass, but states that symptoms started before that. Patient does appear very comfortable with labored breathing. He had an oxygen saturation of around 89% on arrival and was placed on a nasal cannula. Patient does not wear oxygen at home. He is on hemodialysis Saturday, Saturday, and Saturday, but did miss his session today. MD complaint: nausea, vomiting, diarrhea - Related Data Home Medications Medication Instructions Recorded Confirmed Warfarin [Coumadin] 4.5 mg PO QAM 10/31/20 09/23/24 FLUoxetine HCL [PROzac] 20 mg PO QAM 12/07/21 09/23/24 Gabapentin [Neurontin] 100 mg PO QAM 12/07/21 09/23/24 busPIRone HCL [Buspirone HCl] 15 mg PO QAM 12/07/21 09/23/24 Omeprazole [PriLOSEC] 20 mg PO QAM 09/23/24 09/23/24 Tylenol (Unknown Dose) 1 dose PO DIRECTED PRN 09/23/24 09/23/24 amLODIPine [Norvasc] 10 mg PO QAM 09/23/24 09/23/24 Allergies Allergy/AdvReac Type Severity Reaction Status Date / Time codeine AdvReac Itching Verified 09/25/24 19:17 Review of Systems ROS Statement: Those systems with pertinent positive or pertinent negative responses have been documented in the HPI. ROS Other: All systems not noted in ROS Statement are negative. 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 KIDNEY STONES. Does not use CPAP. 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 Back surgery x 2 for pinched sciatic nerve. Rt foot bone spur removed. RT HAND PLATE SCREWS. KIDNEY STONE REMOVAL Past Anesthesia/Blood Transfusion Reactions: No Reported Reaction Type of Cardiac Device: Loop Device Placement Date:: 2021 Past Psychological History: Anxiety Smoking Status: Never smoker Past Alcohol Use History: None Reported Past Drug Use History: None Reported - Past Family History Father Family Medical History: Cancer, Prostate Disorder Additional Family Medical History / Comment(s): PROSTATE CANCER, Mother Family Medical History: Cancer Additional Family Medical History / Comment(s): CANCER IN LYMPH NODE Sister(s) Family Medical History: Cancer Additional Family Medical History / Comment(s): OVARIAN CANCER General Exam Limitations: no limitations General appearance: alert, in no apparent distress Head exam: Present: atraumatic, normocephalic, normal inspection Respiratory exam: Present: decreased breath sounds, prolonged expiratory Cardiovascular Exam: Present: tachycardia, irregular rhythm GI/Abdominal exam: Present: soft. Absent: distended, tenderness Neurological exam: Present: alert, oriented X3, CN II-XII intact Psychiatric exam: Present: normal affect, normal mood Skin exam: Present: warm, dry, intact, normal color. Absent: rash Course Vital Signs 09/25/24 09/25/24 09/25/24 19:09 21:08 22:25 Temperature 98.8 F 100.9 F H Pulse Rate 107 H 97 Respiratory 22 22 Rate Blood Pressure 161/92 177/97 O2 Sat by Pulse 90 L 94 L 98 Oximetry 09/25/24 09/25/24 09/26/24 22:31 22:51 00:02 Temperature 100.7 F H 98.9 F Pulse Rate 100 106 H 97 Respiratory 22 22 22 Rate Blood Pressure 165/93 165/97 141/84 O2 Sat by Pulse 97 96 99 Oximetry Medical Decision Making - Medical Decision Making This is a 74-year-old male who presents to the emergency department for nausea and vomiting. Was pt. sent in by a medical professional or institution? @ -No Did you speak to anyone other than the patient for history? @ -No Did you review nursing and triage notes? @ -Yes, and I agree, it is accurate with regards to the patient's symptoms. Were old charts reviewed? @ -No Differential Diagnosis? @ -Differential Nausea and Vomiting: Gastroenteritis, cholecystitis, appendicitis, pancreatitis, migraine, benign positional vertigo, food borne illness, pyelonephritis, irritable bowel syndrom e, influenza, Covid, GERD, incarcerated hernia, intestinal obstruction, this is not meant to be an all-inclusive list. EKG interpreted by me (3pts min.)? @ -EKG interpreted by me demonstrating the following: Atrial fibrillation with RVR. Ventricular rate 102 bpm, QRS duration 121 ms, QTc 435 ms. X-rays interpreted by me (1pt min.)? @ -Chest x-ray obtained, my interpretation identifies no localized consolidations or infiltrates. CT interpreted by me (1pt min.)? @ -Not obtained U/S interpreted by me (1pt. min.)? @ -Not obtained What testing was considered but not performed? (CT, X-rays, U/S, labs)? Why? @ -None What meds were considered but not given? Why? @ -None Did you discuss the management of the patient with other professionals? @ -Yes, Carito Walters with [facility], who accepts the patient for admission. Did you reconcile home meds? @ -No Was smoking cessation discussed for >3mins.? @ -No Was critical care preformed (if so, how long)? @ -No Were there social determinants of health that impacted care today? How? (Homelessness, low income, unemployed, alcoholism, drug addiction, transportation, low edu. Level, literacy, decrease access to med. care, residential, rehab)? @ -No Was there de-escalation of care discussed even if they declined? (Discuss DNR or withdrawal of care, Hospice)? @ -No What co-morbidities impacted this encounter? (DM, HTN, Smoking, COPD, CAD, Cancer, CVA, Hep., AIDS, mental health diagnosis, sleep apnea, morbid obesity)? @ -A-fib, HTN, renal disease Was patient admitted / discharged? @ -Admitted. Lab work demonstrates anemia with a hemoglobin of 5.2 and hematocrit of 16.2. Lab work also consistent with patient's history of renal failure with a creatinine of 9.87 and eGFR of 5. Lactic acid 3.4 and BNP 151,000. He is also positive for RSV. Chest x-ray reveals no acute findings. Patient denies a known history of anemia, however prior documentation does list anemia as a chronic problem. He also denies any history of blood transfusions. The most recent hemoglobin level we have is from 2021. However, patient states that he gets his blood work done regularly at dialysis. Stool occult performed which was negative. He is on Coumadin, however this has been held for the last 5 days due to the bronchoscopy. 2 units of PRBCs administered. Patient admitted to medicine for anemia, dyspnea, RSV, and nausea/vomiting. Consult placed for nephrology regarding the patient being on dialysis. Pulmonology consulted regarding patient's postoperative state and increasing dyspnea. Hem/onc consulted regarding the anemia. Iron panel, folate, and vitamin B12 levels ordered with results pending at the time of admission. Case discussed with ED attending, Dr. Fletcher. Undiagnosed new problem with uncertain prognosis? @ -None Drug Therapy requiring intensive monitoring for toxicity (Heparin, Nitro, Insulin, Cardizem)? @ -None Were any procedures done? @ -None Diagnosis/symptom? @ -Anemia, nausea and vomiting, dyspnea, RSV Acute, or Chronic, or Acute on Chronic? @ -Acute Uncomplicated (without systemic symptoms) or Complicated (systemic symptoms)? @ -Complicated Side effects of treatment? @ -None Exacerbation, Progression, or Severe Exacerbation] @ -Not applicable Poses a threat to life or bodily function? @ -Yes, if the anemia is not managed it can be life-threatening - Lab Data Result diagrams: 09/25/24 19:51 09/25/24 19:51 Lab Results 09/25/24 09/25/24 09/25/24 Range/Units 19:51 19:51 19:51 WBC 9.39 (4.50-10.00) 10*3/uL RBC 1.83 L (4.40-5.60) 10*6/uL Hgb 5.2 L* (13.0-17.0) g/dL Hct 16.2 L* (39.6-50.0) % MCV 88.5 (80.0-97.0) fL MCH 28.4 (27.0-32.0) pg MCHC 32.1 (32.0-37.0) g/dL Plt Count 223 (140-440) 10*3/uL MPV 10.2 (9.5-12.2) fL Immature Gran % (Auto) 0.6 % Neutrophils % 84.3 % Lymphocytes % 6.7 % Monocytes % 7.8 % Eosinophils % 0.1 % Basophils % 0.5 % Immature Gran # 0.06 H (0.00-0.04) 10*3/uL Neutrophils # 7.91 H (1.80-7.70) 10*3/uL Lymphocytes # 0.63 L (0.90-5.00) 10*3/uL Monocytes # 0.73 (0.20-1.00) 10*3/uL Eosinophils # 0.01 L (0.04-0.35) 10*3/uL Basophils # 0.05 (0.00-0.10) 10*3/uL PT (10.0-12.5) sec INR (<1.2) APTT (22.0-30.0) sec Sodium 138 (137-145) mmol/L Potassium 5.2 H (3.5-5.1) mmol/L Chloride 97 L (98-107) mmol/L Carbon Dioxide 26 (22-30) mmol/L Anion Gap 15 mmol/L BUN 45 H (9-20) mg/dL Creatinine 9.87 H* (0.66-1.25) mg/dL Est GFR (CKD-EPI)AfAm 5 (>60 ml/min/1.73 sqM) Est GFR (CKD-EPI)NonAf 5 (>60 ml/min/1.73 sqM) Glucose 113 H (74-99) mg/dL Lactic Ac Sepsis Rflx Plasma Lactic Acid Dannie 3.4 H* (0.7-2.0) mmol/L Calcium 8.7 (8.4-10.2) mg/dL Magnesium 1.9 (1.6-2.3) mg/dL Total Bilirubin 1.8 H (0.2-1.3) mg/dL AST 38 (17-59) U/L ALT 16 (4-49) U/L Alkaline Phosphatase 98 (38-126) U/L NT-Pro-B Natriuret Pep 352201 pg/mL Total Protein 7.6 (6.3-8.2) g/dL Albumin 4.3 (3.5-5.0) g/dL Amylase 42 (30-110) U/L Lipase 19 L (23-300) U/L Stool Occult Blood (Negative) Influenza Type A (PCR) (Not Detectd) Influenza Type B (PCR) (Not Detectd) RSV (PCR) (Not Detectd) SARS-CoV-2 (PCR) (Not Detectd) Blood Type Blood Type Confirm Blood Type Recheck Bld Type Recheck Status Antibody Screen Crossmatch Spec Expiration Date 09/25/24 09/25/24 09/25/24 Range/Units 19:51 20:13 20:42 WBC (4.50-10.00) 10*3/uL RBC (4.40-5.60) 10*6/uL Hgb (13.0-17.0) g/dL Hct (39.6-50.0) % MCV (80.0-97.0) fL MCH (27.0-32.0) pg MCHC (32.0-37.0) g/dL Plt Count (140-440) 10*3/uL MPV (9.5-12.2) fL Immature Gran % (Auto) % Neutrophils % % Lymphocytes % % Monocytes % % Eosinophils % % Basophils % % Immature Gran # (0.00-0.04) 10*3/uL Neutrophils # (1.80-7.70) 10*3/uL Lymphocytes # (0.90-5.00) 10*3/uL Monocytes # (0.20-1.00) 10*3/uL Eosinophils # (0.04-0.35) 10*3/uL Basophils # (0.00-0.10) 10*3/uL PT (10.0-12.5) sec INR (<1.2) APTT (22.0-30.0) sec Sodium (137-145) mmol/L Potassium (3.5-5.1) mmol/L Chloride (98-107) mmol/L Carbon Dioxide (22-30) mmol/L Anion Gap mmol/L BUN (9-20) mg/dL Creatinine (0.66-1.25) mg/dL Est GFR (CKD-EPI)AfAm (>60 ml/min/1.73 sqM) Est GFR (CKD-EPI)NonAf (>60 ml/min/1.73 sqM) Glucose (74-99) mg/dL Lactic Ac Sepsis Rflx Y Plasma Lactic Acid Dannie (0.7-2.0) mmol/L Calcium (8.4-10.2) mg/dL Magnesium (1.6-2.3) mg/dL Total Bilirubin (0.2-1.3) mg/dL AST (17-59) U/L ALT (4-49) U/L Alkaline Phosphatase (38-126) U/L NT-Pro-B Natriuret Pep pg/mL Total Protein (6.3-8.2) g/dL Albumin (3.5-5.0) g/dL Amylase (30-110) U/L Lipase (23-300) U/L Stool Occult Blood (Negative) Influenza Type A (PCR) (Not Detectd) Influenza Type B (PCR) (Not Detectd) RSV (PCR) (Not Detectd) SARS-CoV-2 (PCR) (Not Detectd) Blood Type A Positive Blood Type Confirm A Positive Blood Type Recheck No Previous Record Bld Type Recheck Status CABO Indicated Antibody Screen NEGATIVE Crossmatch See Detail Spec Expiration Date 09/28/2024 - 231209/25/24 09/25/24 09/25/24 Range/Units 21:04 21:04 21:18 WBC (4.50-10.00) 10*3/uL RBC (4.40-5.60) 10*6/uL Hgb (13.0-17.0) g/dL Hct (39.6-50.0) % MCV (80.0-97.0) fL MCH (27.0-32.0) pg MCHC (32.0-37.0) g/dL Plt Count (140-440) 10*3/uL MPV (9.5-12.2) fL Immature Gran % (Auto) % Neutrophils % % Lymphocytes % % Monocytes % % Eosinophils % % Basophils % % Immature Gran # (0.00-0.04) 10*3/uL Neutrophils # (1.80-7.70) 10*3/uL Lymphocytes # (0.90-5.00) 10*3/uL Monocytes # (0.20-1.00) 10*3/uL Eosinophils # (0.04-0.35) 10*3/uL Basophils # (0.00-0.10) 10*3/uL PT 20.1 H (10.0-12.5) sec INR 2.0 H (<1.2) APTT 40.1 H (22.0-30.0) sec Sodium (137-145) mmol/L Potassium (3.5-5.1) mmol/L Chloride (98-107) mmol/L Carbon Dioxide (22-30) mmol/L Anion Gap mmol/L BUN (9-20) mg/dL Creatinine (0.66-1.25) mg/dL Est GFR (CKD-EPI)AfAm (>60 ml/min/1.73 sqM) Est GFR (CKD-EPI)NonAf (>60 ml/min/1.73 sqM) Glucose (74-99) mg/dL Lactic Ac Sepsis Rflx Plasma Lactic Acid Dannie (0.7-2.0) mmol/L Calcium (8.4-10.2) mg/dL Magnesium (1.6-2.3) mg/dL Total Bilirubin (0.2-1.3) mg/dL AST (17-59) U/L ALT (4-49) U/L Alkaline Phosphatase (38-126) U/L NT-Pro-B Natriuret Pep pg/mL Total Protein (6.3-8.2) g/dL Albumin (3.5-5.0) g/dL Amylase (30-110) U/L Lipase (23-300) U/L Stool Occult Blood Negative (Negative) Influenza Type A (PCR) Not Detected (Not Detectd) Influenza Type B (PCR) Not Detected (Not Detectd) RSV (PCR) Detected A (Not Detectd) SARS-CoV-2 (PCR) Not Detected (Not Detectd) Blood Type Blood Type Confirm Blood Type Recheck Bld Type Recheck Status Antibody Screen Crossmatch Spec Expiration Date - Radiology Data Radiology results: report reviewed, image reviewed Disposition Clinical Impression: Nausea and vomiting, Anemia, Dyspnea, RSV (respiratory syncytial virus infection) Disposition: ADMITTED IP TO THIS HOSP
[2024-09-25 20:01] LABS: Basophils # (A) 0.05 10*3/uL (0.00-0.10); Basophils % (A) 0.5 %; Eosinophils # (A) 0.01 10*3/uL (0.04-0.35); Eosinophils % (A) 0.1 %; Lymphocytes # (A) 0.63 10*3/uL (0.90-5.00); Lymphocytes % (A) 6.7 %; MCH 28.4 pg (27.0-32.0); MCHC 32.1 g/dL (32.0-37.0); MCV 88.5 fL (80.0-97.0); Mean Platelet Volume 10.2 fL (9.5-12.2); Monocytes # (A) 0.73 10*3/uL (0.20-1.00); Monocytes % (A) 7.8 %; Neutrophils # (A) 7.91 10*3/uL (1.80-7.70); Neutrophils % (A) 84.3 %; Platelet Count 223 10*3/uL (140-440); RBC 1.83 10*6/uL (4.40-5.60); RDW 17.5 % (11.5-14.5); WBC 9.39 10*3/uL (4.50-10.00)
[2024-09-25 20:03] LABS: HCT 16.2 % (39.6-50.0); HGB 5.2 g/dL (13.0-17.0)
[2024-09-25 20:16] LABS: ALT 16 U/L (4-49); AST 38 U/L (17-59); African American GFR (CKD) 5 (>60 ml/min/1.73 sqM); Albumin 4.3 g/dL (3.5-5.0); Alkaline Phosphatase 98 U/L (38-126); Amylase 42 U/L (30-110); Anion Gap 15 mmol/L; Blood Urea Nitrogen 45 mg/dL (9-20); Calcium 8.7 mg/dL (8.4-10.2); Carbon Dioxide 26 mmol/L (22-30); Chloride 97 mmol/L (98-107); Glucose 113 mg/dL (74-99); Lipase 19 U/L (23-300); Magnesium 1.9 mg/dL (1.6-2.3); Non-African American GFR(CKD) 5 (>60 ml/min/1.73 sqM); Potassium 5.2 mmol/L (3.5-5.1); Sodium 138 mmol/L (137-145); Total Bilirubin 1.8 mg/dL (0.2-1.3); Total Protein 7.6 g/dL (6.3-8.2)
[2024-09-25 20:40] LABS: NT-Pro-B-Type Natriuretic Pept 151000 pg/mL
--- NOTE | 2024-09-25 21:20 | XR ---
EXAMINATION TYPE: XR chest 2V DATE OF EXAM: 09/25/2024 8:53 PM COMPARISON: Chest radiographs from 09/24/2024 CLINICAL INDICATION: Male, 74 years old with history of IMELDA; [facility] TECHNIQUE: XR chest 2V Frontal and lateral views of the chest. FINDINGS: Lungs/Pleura: There is no evidence of pleural effusion, focal consolidation, or pneumothorax. Pulmonary vascularity: Unremarkable. Heart/mediastinum: Cardiomediastinal silhouette is enlarged. Musculoskeletal: No acute osseous pathology. IMPRESSION: No acute cardiopulmonary disease/process. [facility], , 09/25/2024 9:17 PM
[2024-09-25 21:36] LABS: Partial Thromboplastin Time 40.1 sec (22.0-30.0); Prothrombin Time 20.1 sec (10.0-12.5)
[2024-09-25] MEDS ORDERED: MORPHINE SULFATE 4 MG/ML SYRINGE IV PRN (21:49)
[2024-09-25] MEDS ORDERED: ONDANSETRON 4 MG/2 ML VIAL IVP PRN (21:49)
[2024-09-25] MEDS ORDERED: NALOXONE 0.4 MG/ML 1 ML VIAL IV PRN (21:49)
[2024-09-25 21:52] LABS: Influenza A Not Detected (Not Detectd); Influenza B Not Detected (Not Detectd); RSV Detected (Not Detectd)
[2024-09-25] MEDS: ACETAMINOPHEN TAB 325 MG TAB PO PRN (22:28)
[2024-09-26] MEDS: PANTOPRAZOLE 40 MG/10 ML VIAL IVP STA (01:08)
[2024-09-26] MEDS: ALBUTEROL NEBULIZED 2.5 MG/3 ML INHALATION STA (04:33)
[2024-09-26 06:29] LABS: Basophils # (A) 0.04 10*3/uL (0.00-0.10); Basophils % (A) 0.6 %; Eosinophils # (A) 0.01 10*3/uL (0.04-0.35); Eosinophils % (A) 0.2 %; HCT 36.8 % (39.6-50.0); Lymphocytes # (A) 0.44 10*3/uL (0.90-5.00); Lymphocytes % (A) 6.7 %; MCHC 32.3 g/dL (32.0-37.0); MCV 86.6 fL (80.0-97.0); Mean Platelet Volume 10.1 fL (9.5-12.2); Monocytes % (A) 7.6 %; Neutrophils # (A) 5.49 10*3/uL (1.80-7.70); Platelet Count 124 10*3/uL (140-440); RBC 4.25 10*6/uL (4.40-5.60); RDW 16.9 % (11.5-14.5); WBC 6.54 10*3/uL (4.50-10.00)
[2024-09-26 06:51] LABS: HGB 11.9 g/dL (13.0-17.0)
[2024-09-26] MEDS: PANTOPRAZOLE 40 MG/10 ML VIAL IV SCH (09:26)
[2024-09-26] MEDS: methylPREDNISolone 4 MG TAB TAPER PO SCH (09:53)
[2024-09-26] MEDS: IPRATROPIUM-ALBUTEROL 3 ML NEB INHALATION SCH (11:58)
[2024-09-26] MEDS: HYDROcodone/APAP 5-325MG 1 EACH TAB PO PRN (12:14)
[2024-09-26] MEDS: hydrALAZINE HCL 50 MG TAB PO SCH (12:14)
[2024-09-26] MEDS: FLUoxetine HCL 20 MG CAP PO SCH (12:15)
[2024-09-26] MEDS: CALCIUM ACETATE 667 MG TAB PO SCH (12:15)
[2024-09-26] MEDS: GABAPENTIN 100 MG CAP PO SCH (12:15)
--- NOTE | 2024-09-26 12:25 | P.HPIM ---
History of Present Illness H&P Date: 09/26/24 History of present illness; patient is a 74-year-old gentleman with past medical history significant for end-stage renal disease on dialysis, hypertension who presented to the ER because of nausea and vomiting. Patient stated that he was all right couple of days ago and started having nausea and vomiting. Patient had multiple episodes of vomiting. Patient denies abdominal pain. Patient also complaining of diarrhea. Patient underwent bronchoscopy on 09/24 which he tolerated. There was no complaint of fever or chill. Patient denies any chest pain, shortness of breath. Patient denies any lightheaded dizziness. Because of this nausea and vomiting, patient came to the ER Initial lab work done in the ER showed WBC 9.39, hemoglobin 5.2, platelet count 223, sodium 138, potassium 5.2 BUN 45, creatinine 0.87, lactate 3.4 calcium 8.7, bilirubin 1.8, proBNP 151,000 occult blood negative Influenza A not detected Influenza B not detected RSV detected COVID-19 not detected EKG done in the ER showed heart rate of 102, irregular rhythm, no ST segment elevation or depression seen, no T-wave inversions seen. Chest x-ray done in the ER showed no acute cardiopulmonary process CT chest done on 09/24 showed 1.4 cm inferior lingular pulmonary nodule, COPD with mild emphysema, pulmonary hypertension with borderline cardiomegaly Patient admitted to internal medicine service REVIEW OF SYSTEMS: CONSTITUTIONAL: No fever, no malaise, no fatigue. HEENT: No recent visual problems or hearing problems. Denied any sore throat. CARDIOVASCULAR: No chest pain, orthopnea, PND, no palpitations, no syncope. PULMONARY: As mentioned above GASTROINTESTINAL: As mentioned above NEUROLOGICAL: No headaches, no weakness, no numbness. HEMATOLOGICAL: Denies any bleeding or petechiae. GENITOURINARY: Denies any burning micturition, frequency, or urgency. MUSCULOSKELETAL/RHEUMATOLOGICAL: Denies any joint pain, swelling, or any muscle pain. ENDOCRINE: Denies any polyuria or polydipsia. The rest of the 14-point review of systems is negative. PHYSICAL EXAMINATION: GENERAL: The patient is alert and oriented x3, not in any acute distress. Well developed, well nourished. HEENT: Pupils are round and equally reacting to light. EOMI. No scleral icterus. No conjunctival pallor. Normocephalic, atraumatic. No pharyngeal erythema. No thyromegaly. CARDIOVASCULAR: S1 and S2 present. No murmurs, rubs, or gallops. PULMONARY: Chest is clear to auscultation, no wheezing or crackles. ABDOMEN: Soft, nontender, nondistended, normoactive bowel sounds. No palpable organomegaly. MUSCULOSKELETAL: No joint swelling or deformity. EXTREMITIES: No cyanosis, clubbing, or pedal edema. NEUROLOGICAL: Gross neurological examination did not reveal any focal deficits. SKIN: No rashes. Assessment and plan Acute blood loss anemia Acute RSV infection Acute hypoxic respiratory failure Hyperkalemia lactic acidosis End-stage renal disease on dialysis Hypertension 1.4 cm pulmonary nodule History of atrial fibrillation on Coumadin Monitor vital signs Monitor CBC Monitor CMP Continue telemetry monitoring Monitor H&H S/p transfusion of 2 units of packed red blood cell Anemia workup ordered Ordered breathing treatments Ordered Medrol Dosepak Ordered IV Protonix Resume Coreg, amlodipine Consult nephrology Consult hematology for anemia Consult pulmonary Labs and medication were reviewed.. Continue same treatment. Continue with symptomatic treatment. Resume home medication. Monitor labs and vitals. DVT and GI prophylaxis. Further recommendations as per clinical course of the patient Dictation was produced using [employer] dictation software. please excuse any grammatical, word or spelling errors. 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 KIDNEY STONES. Does not use CPAP. 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 Back surgery x 2 for pinched sciatic nerve. Rt foot bone spur removed. RT HAND PLATE SCREWS. KIDNEY STONE REMOVAL Past Anesthesia/Blood Transfusion Reactions: No Reported Reaction Type of Cardiac Device: Loop Device Placement Date:: 2021 Past Psychological History: Anxiety Smoking Status: Never smoker Past Alcohol Use History: None Reported Past Drug Use History: None Reported - Past Family History Father Family Medical History: Cancer, Prostate Disorder Additional Family Medical History / Comment(s): PROSTATE CANCER, Mother Family Medical History: Cancer Additional Family Medical History / Comment(s): CANCER IN LYMPH NODE Sister(s) Family Medical History: Cancer Additional Family Medical History / Comment(s): OVARIAN CANCER Medications and Allergies Home Medications Medication Instructions Recorded Confirmed Type Warfarin [Coumadin] 3.75 mg PO DAILY 10/31/20 09/26/24 History FLUoxetine HCL [PROzac] 20 mg PO DAILY 12/07/21 09/26/24 History Gabapentin [Neurontin] 100 mg PO DAILY 12/07/21 09/26/24 History amLODIPine [Norvasc] 10 mg PO DAILY 09/23/24 09/26/24 History Calcium Acetate [Phoslo] 667 mg PO DAILY 09/26/24 09/26/24 History carvediloL [Coreg] 12.5 mg PO BID 09/26/24 09/26/24 History hydrALAZINE HCL [Apresoline] 100 mg PO DAILY 09/26/24 09/26/24 History Allergies Allergy/AdvReac Type Severity Reaction Status Date / Time codeine AdvReac Itching Verified 09/26/24 09:23 Physical Exam Vitals: Vital Signs Temp Pulse Resp BP Pulse Ox 09/26/24 09:23 98 F 87 24 140/108 99 09/26/24 07:19 98.6 F 93 22 140/81 97 09/26/24 06:48 98.2 F 91 22 149/94 99 09/26/24 04:43 94 09/26/24 04:33 90 09/26/24 04:12 98.5 F 84 18 135/91 96 09/26/24 04:00 97 22 130/96 95 09/26/24 02:45 86 22 149/100 95 09/26/24 01:42 98.4 F 86 18 122/91 96 09/26/24 01:22 98.2 F 88 22 122/80 95 09/26/24 01:12 98.4 F 88 20 138/76 96 09/26/24 00:54 98.3 F 90 20 156/92 95 09/26/24 00:02 97 22 141/84 99 09/25/24 22:51 98.9 F 106 H 22 165/97 96 09/25/24 22:31 100.7 F H 100 22 165/93 97 09/25/24 22:25 100.9 F H 97 22 177/97 98 09/25/24 21:08 94 L 09/25/24 19:09 98.8 F 107 H 22 161/92 90 L Intake and Output 09/25/24 09/26/24 09/26/24 22:59 06:59 14:59 Intake Total 0 620 Balance 0 620 Intake: Blood Product 0 620 Rc As-1 Unit 0 310 [id number] Rc As-1 Unit 310 [id number] Other: Weight 88.451 kg Results CBC & Chem 7: 09/26/24 06:10 09/25/24 19:51 Labs: Abnormal Lab Results - Last 24 Hours (Table) 09/25/24 09/25/24 09/25/24 Range/Units 19:51 19:51 19:51 RBC 1.83 L (4.40-5.60) 10*6/uL Hgb 5.2 L* (13.0-17.0) g/dL Hct 16.2 L* (39.6-50.0) % Plt Count (140-440) 10*3/uL Immature Gran # 0.06 H (0.00-0.04) 10*3/uL Neutrophils # 7.91 H (1.80-7.70) 10*3/uL Lymphocytes # 0.63 L (0.90-5.00) 10*3/uL Eosinophils # 0.01 L (0.04-0.35) 10*3/uL PT (10.0-12.5) sec INR (<1.2) APTT (22.0-30.0) sec Potassium 5.2 H (3.5-5.1) mmol/L Chloride 97 L (98-107) mmol/L BUN 45 H (9-20) mg/dL Creatinine 9.87 H* (0.66-1.25) mg/dL Glucose 113 H (74-99) mg/dL Plasma Lactic Acid Dannie 3.4 H* (0.7-2.0) mmol/L Total Bilirubin 1.8 H (0.2-1.3) mg/dL Lipase 19 L (23-300) U/L RSV (PCR) (Not Detectd) Crossmatch 09/25/24 09/25/2409/25/25 Range/Units 20:13 21:04 21:04 RBC (4.40-5.60) 10*6/uL Hgb (13.0-17.0) g/dL Hct (39.6-50.0) % Plt Count (140-440) 10*3/uL Immature Gran # (0.00-0.04) 10*3/uL Neutrophils # (1.80-7.70) 10*3/uL Lymphocytes # (0.90-5.00) 10*3/uL Eosinophils # (0.04-0.35) 10*3/uL PT 20.1 H (10.0-12.5) sec INR 2.0 H (<1.2) APTT 40.1 H (22.0-30.0) sec Potassium (3.5-5.1) mmol/L Chloride (98-107) mmol/L BUN (9-20) mg/dL Creatinine (0.66-1.25) mg/dL Glucose (74-99) mg/dL Plasma Lactic Acid Dannie (0.7-2.0) mmol/L Total Bilirubin (0.2-1.3) mg/dL Lipase (23-300) U/L RSV (PCR) Detected A (Not Detectd) Crossmatch See Detail 09/26/24 Range/Units 06:10 RBC 4.25 L (4.40-5.60) 10*6/uL Hgb 11.9 L D (13.0-17.0) g/dL Hct 36.8 L (39.6-50.0) % Plt Count 124 L (140-440) 10*3/uL Immature Gran # 0.06 H (0.00-0.04) 10*3/uL Neutrophils # (1.80-7.70) 10*3/uL Lymphocytes # 0.44 L (0.90-5.00) 10*3/uL Eosinophils # 0.01 L (0.04-0.35) 10*3/uL PT (10.0-12.5) sec INR (<1.2) APTT (22.0-30.0) sec Potassium (3.5-5.1) mmol/L Chloride (98-107) mmol/L BUN (9-20) mg/dL Creatinine (0.66-1.25) mg/dL Glucose (74-99) mg/dL Plasma Lactic Acid Dannie (0.7-2.0) mmol/L Total Bilirubin (0.2-1.3) mg/dL Lipase (23-300) U/L RSV (PCR) (Not Detectd) Crossmatch
--- NOTE | 2024-09-26 13:40 | P.CNPUL ---
History of Present Illness Consult date: 09/26/24 Requesting physician: Nicolás Saul Reason for consult: cough Chief complaint: Nausea vomiting, recent robotic Ion bronchoscopy History of present illness: This is a 74-year-old white male with history of end-stage renal disease, on hemodialysis, patient underwent robotic iron bronchoscopy by Dr. Santa on 09/24/2024, patient had transbronchial biopsy of small 1.4 lingular nodule highly suspicious for metastatic disease to the lingula. Patient had uneventful bronchoscopy, patient presented to the ER yesterday with mostly symptoms of nausea vomiting, occasional cough, no abdominal pain, no fever, no chills, no fever no chills, no headaches, no blurred vision, no dizziness. Workup in the ER showed very low hemoglobin of 5.2 and he was found to have elevated BUN of 45 creatinine 9.87, elevated BNP level of 151,000, chest x-ray showed prominence of the pulmonary vasculature, and his viral screen came back positive for RSV PCR. We were asked to see the patient in consultation, patient received 2 units of packed RBCs for his low hemoglobin and his follow-up hemoglobin today was 11.9. Patient is yet to be seen by nephrology for hemodialysis sometime later today. Patient did not seem to be in any distress, his O2 saturation was 99% on 3 L nasal cannula. On physical examination he had minimal wheezing bilaterally and crackles at the bases. Review of Systems CONSTITUTIONAL: No fever no chills no weight loss HEENT: No headache, no blurred vision, no dizziness CARDIOVASCULAR: No chest pain orthopnea or PND PULMONARY: Minimal cough, no shortness of breath GASTROINTESTINAL: As noted in HPI NEUROLOGICAL: Negative HEMATOLOGICAL: Denies any history of bleeding clotting or bruising GENITOURINARY: Negative MUSCULOSKELETAL/RHEUMATOLOGICAL: Negative ENDOCRINE: Denies any polyuria or polydipsia. 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 KIDNEY STONES. Does not use CPAP. 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 Back surgery x 2 for pinched sciatic nerve. Rt foot bone spur removed. RT HAND PLATE SCREWS. KIDNEY STONE REMOVAL Past Anesthesia/Blood Transfusion Reactions: No Reported Reaction Type of Cardiac Device: Loop Device Placement Date:: 2021 Past Psychological History: Anxiety Smoking Status: Never smoker Past Alcohol Use History: None Reported Past Drug Use History: None Reported - Past Family History Father Family Medical History: Cancer, Prostate Disorder Additional Family Medical History / Comment(s): PROSTATE CANCER, Mother Family Medical History: Cancer Additional Family Medical History / Comment(s): CANCER IN LYMPH NODE Sister(s) Family Medical History: Cancer Additional Family Medical History / Comment(s): OVARIAN CANCER Medications and Allergies Home Medications Medication Instructions Recorded Confirmed Type Warfarin [Coumadin] 3.75 mg PO DAILY 10/31/20 09/26/24 History FLUoxetine HCL [PROzac] 20 mg PO DAILY 12/07/21 09/26/24 History Gabapentin [Neurontin] 100 mg PO DAILY 12/07/21 09/26/24 History amLODIPine [Norvasc] 10 mg PO DAILY 09/23/24 09/26/24 History Calcium Acetate [Phoslo] 667 mg PO DAILY 09/26/24 09/26/24 History carvediloL [Coreg] 12.5 mg PO BID 09/26/24 09/26/24 History hydrALAZINE HCL [Apresoline] 100 mg PO DAILY 09/26/24 09/26/24 History Allergies Allergy/AdvReac Type Severity Reaction Status Date / Time codeine AdvReac Itching Verified 09/26/24 09:23 Physical Exam Vitals: Vital Signs Temp Pulse Pulse Resp BP BP Pulse Ox 09/26/24 12:12 108 H 09/26/24 11:58 112 H 09/26/24 11:41 81 28 H 139/81 99 09/26/24 10:35 97.5 F L 93 26 H 125/79 99 09/26/24 10:12 97.8 F 84 24 151/98 99 09/26/24 09:23 98 F 87 24 140/108 99 09/26/24 07:19 98.6 F 93 22 140/81 97 09/26/24 06:48 98.2 F 91 22 149/94 99 09/26/24 04:43 94 09/26/24 04:33 90 09/26/24 04:12 98.5 F 84 18 135/91 96 09/26/24 04:00 97 22 130/96 95 09/26/24 02:45 86 22 149/100 95 09/26/24 01:42 98.4 F 86 18 122/91 96 09/26/24 01:22 98.2 F 88 22 122/80 95 09/26/24 01:12 98.4 F 88 20 138/76 96 09/26/24 00:54 98.3 F 90 20 156/92 95 09/26/24 00:02 97 22 141/84 99 09/25/24 22:51 98.9 F 106 H 22 165/97 96 09/25/24 22:31 100.7 F H 100 22 165/93 97 09/25/24 22:25 100.9 F H 97 22 177/97 98 09/25/24 21:08 94 L 09/25/24 19:09 98.8 F 107 H 22 161/92 90 L Intake and Output 09/25/24 09/26/24 09/26/24 22:59 06:59 14:59 Intake Total 0 620 Balance 0 620 Intake: Blood Product 0 620 Rc As-1 Unit 0 310 [id number] Rc As-1 Unit 310 [id number] Other: Weight 88.451 kg 88.451 kg GENERAL: Revealed a 74-year-old white male, slightly confused, not in any distress, on 2 L nasal cannula HEENT: Dry mucous membranes, PERRLA, EOMI, anicteric, no neck masses no JVD CARDIOVASCULAR: Irregular irregular rhythm S1 and S2 present. No murmurs, rubs, or gallops. PULMONARY: Minimal crackles and wheezing more so on forced expiratory maneuver bilaterally ABDOMEN: Obese, soft, nontender, no rebound, no guarding, positive bowel sounds. MUSCULOSKELETAL: No deformities no limitation range of motion EXTREMITIES: No clubbing edema or cyanosis NEUROLOGICAL: Minimal confusion, otherwise no gross focal neurologic deficit patient knew that he was at [facility], but he thought that the year was 2004 SKIN: No rashes. Results - Laboratory Findings CBC and BMP: 09/26/24 06:10 09/25/24 19:51 PT/INR, D-dimer PT 20.1 sec (10.0-12.5) H 09/25/24 21:04 INR 2.0 (<1.2) H 09/25/24 21:04 Abnormal lab findings: Abnormal Labs 09/25/24 09/25/24 09/25/24 19:51 19:51 19:51 RBC 1.83 L Hgb 5.2 L* Hct 16.2 L* Plt Count Immature Gran # 0.06 H Neutrophils # 7.91 H Lymphocytes # 0.63 L Eosinophils # 0.01 L PT INR APTT Potassium 5.2 H Chloride 97 L BUN 45 H Creatinine 9.87 H* Glucose 113 H Plasma Lactic Acid Dannie 3.4 H* Total Bilirubin 1.8 H Lipase 19 L RSV (PCR) Crossmatch 09/25/24 09/25/24 09/25/24 20:13 21:04 21:04 RBC Hgb Hct Plt Count Immature Gran # Neutrophils # Lymphocytes # Eosinophils # PT 20.1 H INR 2.0 H APTT 40.1 H Potassium Chloride BUN Creatinine Glucose Plasma Lactic Acid Dannie Total Bilirubin Lipase RSV (PCR) Detected A Crossmatch See Detail 09/26/24 06:10 RBC 4.25 L Hgb 11.9 L D Hct 36.8 L Plt Count 124 L Immature Gran # 0.06 H Neutrophils # Lymphocytes # 0.44 L Eosinophils # 0.01 L PT INR APTT Potassium Chloride BUN Creatinine Glucose Plasma Lactic Acid Dannie Total Bilirubin Lipase RSV (PCR) Crossmatch - Diagnostic Findings Chest x-ray: image reviewed (As noted in HPI) Assessment and Plan Assessment: Impression: Acute blood loss anemia requiring 2 units of packed RBCs in the ER Chronic end-stage renal disease, on hemodialysis Acute RSV infection Acute fluid overload secondary to chronic kidney disease, patient may need hemodialysis today. Solitary lung nodule status post robotic Ion bronchoscopy and biopsy results are pending Benign essential hypertension Chronic atrial fibrillation on Coumadin History of renal cell carcinoma, being followed by urology. Recommendation: Consult nephrology for hemodialysis today Continue to monitor hemoglobin, hold Coumadin for now although INR is therapeutic Supportive care measures GI workup for further evaluation for possible GI blood losses/anemia workup Continue Protonix Resume home meds Continue bronchodilators/DuoNeb Medrol Dosepak for his cough/secondary to RSV Will continue to follow Time with Patient: Greater than 30
[2024-09-26 14:13] LABS: % Iron Saturation 20.73 (15.00-50.00); Iron 40 UG/DL (65-175); Total Iron Binding Capacity 193 UG/DL (228-460)
--- NOTE | 2024-09-26 14:16 | P.NPCON ---
History of Present Illness - Reason for Consult Consult date: 09/26/24 - Chief Complaint Nausea with Vomiting - History of Present Illness This is a 74-year-old male who presents to the emergency department for nausea, vomiting, and diarrhea. Patient states that this started 2 days ago. He last threw up this morning but does not currently feel nauseous. He had a b ronchoscopy yesterday due to a lung mass, but states that symptoms started before that. He was seen in ED and diagnosed with RSV. Diarrhea improved. Breathing has been stable over night. Has HD MWF and missed yesterday due to not feeling well. Patient declined wanting dialysis today to make up session. Feels very tired but otherwise no other complaints. 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 KIDNEY STONES. Does not use CPAP. 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 Back surgery x 2 for pinched sciatic nerve. Rt foot bone spur removed. RT HAND PLATE SCREWS. KIDNEY STONE REMOVAL Past Anesthesia/Blood Transfusion Reactions: No Reported Reaction Type of Cardiac Device: Loop Device Placement Date:: 2021 Past Psychological History: Anxiety Smoking Status: Never smoker Past Alcohol Use History: None Reported Past Drug Use History: None Reported - Past Family History Father Family Medical History: Cancer, Prostate Disorder Additional Family Medical History / Comment(s): PROSTATE CANCER, Mother Family Medical History: Cancer Additional Family Medical History / Comment(s): CANCER IN LYMPH NODE Sister(s) Family Medical History: Cancer Additional Family Medical History / Comment(s): OVARIAN CANCER Medications and Allergies Home Medications Medication Instructions Recorded Confirmed Type Warfarin [Coumadin] 3.75 mg PO DAILY 10/31/20 09/26/24 History FLUoxetine HCL [PROzac] 20 mg PO DAILY 12/07/21 09/26/24 History Gabapentin [Neurontin] 100 mg PO DAILY 12/07/21 09/26/24 History amLODIPine [Norvasc] 10 mg PO DAILY 09/23/24 09/26/24 History Calcium Acetate [Phoslo] 667 mg PO DAILY 09/26/24 09/26/24 History carvediloL [Coreg] 12.5 mg PO BID 09/26/24 09/26/24 History hydrALAZINE HCL [Apresoline] 100 mg PO DAILY 09/26/24 09/26/24 History Allergies Allergy/AdvReac Type Severity Reaction Status Date / Time codeine AdvReac Itching Verified 09/26/24 09:23 Physical Exam Vitals: Vital Signs Temp Pulse Resp BP Pulse Ox 09/26/24 10:12 97.8 F 84 24 151/98 99 09/26/24 09:23 98 F 87 24 140/108 99 09/26/24 07:19 98.6 F 93 22 140/81 97 09/26/24 06:48 98.2 F 91 22 149/94 99 09/26/24 04:43 94 09/26/24 04:33 90 09/26/24 04:12 98.5 F 84 18 135/91 96 09/26/24 04:00 97 22 130/96 95 09/26/24 02:45 86 22 149/100 95 09/26/24 01:42 98.4 F 86 18 122/91 96 09/26/24 01:22 98.2 F 88 22 122/80 95 09/26/24 01:12 98.4 F 88 20 138/76 96 09/26/24 00:54 98.3 F 90 20 156/92 95 09/26/24 00:02 97 22 141/84 99 09/25/24 22:51 98.9 F 106 H 22 165/97 96 09/25/24 22:31 100.7 F H 100 22 165/93 97 09/25/24 22:25 100.9 F H 97 22 177/97 98 09/25/24 21:08 94 L 09/25/24 19:09 98.8 F 107 H 22 161/92 90 L Intake and Output 0509/26/24 09/26/24 22:59 06:59 14:59 Intake Total 0 620 Balance 0 620 Intake: Blood Product 0 620 Rc As-1 Unit 0 310 [id number] Rc As-1 Unit 310 [id number] Other: Weight 88.451 kg Results - Lab Results Most recent lab results Calcium 8.7 mg/dL (8.4-10.2) 09/25/24 19:51 Magnesium 1.9 mg/dL (1.6-2.3) 09/25/24 19:51 09/26/24 06:10 09/25/24 19:51 Assessment and Plan Assessment: 1. ESRD on HD MWF. Missed HD yesterday. 2. Acute RSV with vomiting and diarrhea 3. Anemia with CKD currently at goal 10-11.5 after 2 unit PRBC 4. HTN with CKD 5. MBD with CKD goal Phosphorus <5.5 Plan: Patient refused HD today, wants to run Saturday Monitor Hb closely initial Hb 5.2 If K remains elevated will add [facility] Pulmonology following Continue home BP medications
[2024-09-26 14:42] LABS: Vitamin B12 >3600.0 pg/mL (200.0-944.0)
[2024-09-26] MEDS: carvediloL 12.5 MG TAB PO SCH (16:22)
--- NOTE | 2024-09-26 19:45 | P.CONS ---
History of Present Illness - Reason for Consult Consult date: 09/26/24 Lung mass, right renal mass, anemia - History of Present Illness The patient is a 74-year-old white male, with multiple medical issues. The patient has a complicated past medical history, including from the oncology standpoint. He has a known history of renal cell cancer, right-sided, that was limited to the right kidney, and treated with cryotherapy in 2019. He has been on regular follow-up by urology. The patient has a known lingular nodule. PET scan from 08/13/2024 had shown some increased activity and increase in size of the right renal mass. There was also about 4 mm increase in size of the left lingular nodule noted, compared to previous CT scan in 01/16, with positive FDG uptake. The patient was referred to pulmonary medicine, and had an elective bronchoscopy on 09/24/2024. Postprocedure he developed intractable nausea and vomiting, and therefore was seen back in the ER. He was found to have a hemo globin of 5.2. He had 2 units of PRBC. Consult was placed for anemia. The patient's CBC today shows a hemoglobin of 11.9. This is essentially the same as his baseline as 2021. The patient has a known history of ESRD on hemodialysis Saturday/Saturday/Saturday and has been on the same for about 2 to 3 years. He does not know if he receives any MARIA GUADALUPE with the dialysis. He denies any obvious bleeding. He does not recall ever having had a colonoscopy or endoscopy. No history of any change in bowel habits or difficulty in swallowing. Patient's workup came back positive for RSV. Ferritin has not yet resulted but iron saturation was normal Review of Systems Constitutional: Reports anorexia, Reports fatigue, Reports weakness Eyes: denies blurred vision, denies pain Ears: deny: decreased hearing, ear discharge, earache, tinnitus Ears, nose, mouth and throat: Denies headache, Denies sore throat Cardiovascular: Reports decreased exercise tolerance, Reports dyspnea on exertion Respiratory: Reports dyspnea Gastrointestinal: Reports nausea, Reports vomiting Genitourinary: Reports as per HPI Musculoskeletal: Reports muscle weakness Integumentary: Denies pruritus, Denies rash Neurological: Reports weakness Psychiatric: Reports difficulty concentrating, Denies anxiety, Denies depression Endocrine: Reports fatigue Hematologic/Lymphatic: Reports as per HPI Past Medical History Past Medical History: Atrial Fibrillation, GERD/Reflux, Hypertension, Myocardial Infarction (CO), Renal Disease, Sleep Apnea/CPAP/BIPAP Additional Past Medical History / Comment(s): "I have a spot on my lower lt lung."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 KIDNEY STONES. Does not use CPAP. 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 Back surgery x 2 for pinched sciatic nerve. Rt foot bone spur removed. RT HAND PLATE SCREWS. KIDNEY STONE REMOVAL Past Anesthesia/Blood Transfusion Reactions: No Reported Reaction Type of Cardiac Device: Loop Device Placement Date:: 2021 Past Psychological History: Anxiety Smoking Status: Never smoker Past Alcohol Use History: None Reported Past Drug Use History: None Reported - Past Family History Father Family Medical History: Cancer, Prostate Disorder Additional Family Medical History / Comment(s): PROSTATE CANCER, Mother Family Medical History: Cancer Additional Family Medical History / Comment(s): CANCER IN LYMPH NODE Sister(s) Family Medical History: Cancer Additional Family Medical History / Comment(s): OVARIAN CANCER Medications and Allergies Home Medications Medication Instructions Recorded Confirmed Type Warfarin [Coumadin] 3.75 mg PO DAILY 10/31/20 09/26/24 History FLUoxetine HCL [PROzac] 20 mg PO DAILY 12/07/21 09/26/24 History Gabapentin [Neurontin] 100 mg PO DAILY 12/07/21 09/26/24 History amLODIPine [Norvasc] 10 mg PO DAILY 09/23/24 09/26/24 History Calcium Acetate [Phoslo] 667 mg PO DAILY 09/26/24 09/26/24 History carvediloL [Coreg] 12.5 mg PO BID 09/26/24 09/26/24 History hydrALAZINE HCL [Apresoline] 100 mg PO DAILY 09/26/24 09/26/24 History Allergies Allergy/AdvReac Type Severity Reaction Status Date / Time codeine AdvReac Itching Verified 09/26/24 09:23 Physical Exam Vitals: Vital Signs Temp Pulse Pulse Resp BP BP Pulse Ox 09/26/24 16:17 97.4 F L 92 94 24 150/85 98 09/26/24 16:06 88 09/26/24 12:12 108 H 09/26/24 11:58 112 H 09/26/24 11:41 81 28 H 139/81 99 09/26/24 10:35 97.5 F L 93 26 H 125/79 99 09/26/24 10:12 97.8 F 84 24 151/98 99 09/26/24 09:23 98 F 87 24 140/108 99 09/26/24 07:19 98.6 F 93 22 140/81 97 09/26/24 06:48 98.2 F 91 22 149/94 99 09/26/24 04:43 94 09/26/24 04:33 90 09/26/24 04:12 98.5 F 84 18 135/91 96 09/26/24 04:00 97 22 130/96 95 09/26/24 02:45 86 22 149/100 95 09/26/24 01:42 98.4 F 86 18 122/91 96 09/26/24 01:22 98.2 F 88 22 122/80 95 09/26/24 01:12 98.4 F 88 20 138/76 96 09/26/24 00:54 98.3 F 90 20 156/92 95 09/26/24 00:02 97 22 141/84 99 09/25/24 22:51 98.9 F 106 H 22 165/97 96 09/25/24 22:31 100.7 F H 100 22 165/93 97 09/25/24 22:25 100.9 F H 97 22 177/97 98 09/25/24 21:08 94 L Intake and Output 09/26/24 09/26/24 09/26/24 06:59 14:59 22:59 Intake Total 620 10 Output Total 0 Balance 620 10 0 Intake: IV 10 Invasive Line 2 10 Blood Product 620 As-1 Unit 310 [id number] As-1 Unit 310 [id number] Output: Gastric Drainage 0 Urine 0 Stool 0 Urine/Stool Mix 0 Emesis 0 Oral Regurgitation 0 Other 0 Other: Voiding Method Toilet Urinal # Voids 0 # Bowel Movements 0 Weight 88.451 kg Patient lethargic, arousable, does have some difficulty with recall intermittently with improvement on continued question - Constitutional General appearance: no acute distress - EENT Eyes: EOMI, PERRLA ENT: hearing grossly normal, normal oropharynx - Neck Neck: no lymphadenopathy Thyroid: bilateral: normal size - Respiratory Respiratory: bilateral: CTA - Cardiovascular Rhythm: regular Heart sounds: normal: S1, S2 - Gastrointestinal General gastrointestinal: normal bowel sounds, soft - Integumentary Integumentary: normal - Neurologic Neurologic: CNII-XII intact - Musculoskeletal AV graft left upper extremity Musculoskeletal: generalized weakness, strength equal bilaterally - Psychiatric Psychiatric: A&O x's 3, appropriate affect Results CBC & Chem 7: 09/26/24 06:10 09/25/24 19:51 Labs: Abnormal Lab Results - Last 24 Hours (Table) 09/25/24 09/25/24 09/25/24 Range/Units 19:51 19:51 19:51 RBC 1.83 L (4.40-5.60) 10*6/uL Hgb 5.2 L* (13.0-17.0) g/dL Hct 16.2 L* (39.6-50.0) % Plt Count (140-440) 10*3/uL Immature Gran # 0.06 H (0.00-0.04) 10*3/uL Neutrophils # 7.91 H (1.80-7.70) 10*3/uL Lymphocytes # 0.63 L (0.90-5.00) 10*3/uL Eosinophils # 0.01 L (0.04-0.35) 10*3/uL PT (10.0-12.5) sec INR (<1.2) APTT (22.0-30.0) sec Potassium 5.2 H (3.5-5.1) mmol/L Chloride 97 L (98-107) mmol/L BUN 45 H (9-20) mg/dL Creatinine 9.87 H* (0.66-1.25) mg/dL Glucose 113 H (74-99) mg/dL Plasma Lactic Acid Dannie 3.4 H* (0.7-2.0) mmol/L Iron (65-175) UG/DL TIBC (228-460) UG/DL Transferrin (204.0-354.0) mg/dL Total Bilirubin 1.8 H (0.2-1.3) mg/dL Lipase 19 L (23-300) U/L Vitamin B12 (200.0-944.0) pg/mL RSV (PCR) (Not Detectd) Crossmatch 09/25/24 09/25/24 09/25/24 Range/Units 20:13 21:04 21:04 RBC (4.40-5.60) 10*6/uL Hgb (13.0-17.0) g/dL Hct (39.6-50.0) % Plt Count (140-440) 10*3/uL Immature Gran # (0.00-0.04) 10*3/uL Neutrophils # (1.80-7.70) 10*3/uL Lymphocytes # (0.90-5.00) 10*3/uL Eosinophils # (0.04-0.35) 10*3/uL PT 20.1 H (10.0-12.5) sec INR 2.0 H (<1.2) APTT 40.1 H (22.0-30.0) sec Potassium (3.5-5.1) mmol/L Chloride (98-107) mmol/L BUN (9-20) mg/dL Creatinine (0.66-1.25) mg/dL Glucose (74-99) mg/dL Plasma Lactic Acid Dannie (0.7-2.0) mmol/L Iron (65-175) UG/DL TIBC (228-460) UG/DL Transferrin (204.0-354.0) mg/dL Total Bilirubin (0.2-1.3) mg/dL Lipase (23-300) U/L Vitamin B12 (200.0-944.0) pg/mL RSV (PCR) Detected A (Not Detectd) Crossmatch See Detail 09/26/24 09/26/24 Range/Units 01:00 06:10 RBC 4.25 L (4.40-5.60) 10*6/uL Hgb 11.9 L D (13.0-17.0) g/dL Hct 36.8 L (39.6-50.0) % Plt Count 124 L (140-440) 10*3/uL Immature Gran # 0.06 H (0.00-0.04) 10*3/uL Neutrophils # (1.80-7.70) 10*3/uL Lymphocytes # 0.44 L (0.90-5.00) 10*3/uL Eosinophils # 0.01 L (0.04-0.35) 10*3/uL PT (10.0-12.5) sec INR (<1.2) APTT (22.0-30.0) sec Potassium (3.5-5.1) mmol/L Chloride (98-107) mmol/L BUN (9-20) mg/dL Creatinine (0.66-1.25) mg/dL Glucose (74-99) mg/dL Plasma Lactic Acid Dannie (0.7-2.0) mmol/L Iron 40 L (65-175) UG/DL TIBC 193 L (228-460) UG/DL Transferrin 138.0 L (204.0-354.0) mg/dL Total Bilirubin (0.2-1.3) mg/dL Lipase (23-300) U/L Vitamin B12 >3600.0 H (200.0-944.0) pg/mL RSV (PCR) (Not Detectd) Crossmatch Comments: PET scan report reviewed Chest x-ray: report reviewed CT scan - chest: report reviewed Assessment and Plan (1) Anemia Narrative/Plan: The patient had presented with a hemoglobin of 5.2, but after receiving 2 units of PRBC, hemoglobin is increased to 11.9. It was discussed with the patient that 2 units PRBC should typically only increase the hemoglobin by about 2 to 3 g/dL. Therefore it is most likely that the value of 5.2 was erroneous, due to dilution, or lab error -Continue to monitor - Check hemolysis workup in view of current diagnosis of RSV - Assuming hemoglobin shows stability in the 9-11 range, and hemolysis workup is negative, further workup would not be required Current Visit: Yes Status: Acute Code(s): D64.9 - ANEMIA, UNSPECIFIED SNOMED Code(s): 391990043 (2) Pulmonary nodule Narrative/Plan: This has been present previously, with increase in size by about 4 mm to 1.4 cm currently, and mild FDG uptake, felt to be somewhat suspicious. The patient is status post bronchoscopy, with results awaited. Major differential currently would be a slow-growing metastasis from his known renal cell cancer, especially as there appears to be some progression at the primary site also. Other causes, including benign etiologies are not ruled out at this time. Await pathology Current Visit: No Status: Acute Code(s): R91.1 - SOLITARY PULMONARY NODULE SNOMED Code(s): 362651764 (3) Renal cell carcinoma Narrative/Plan: Right-sided, early stage, treated with cryo therapy in 2019. There has been mild increase in size and FDG uptake on recent PET scan concerning for progression. If the patient's bronchoscopy is negative for malignancy or shows a different malignant primary, the patient would be a candidate for definitive treatment for the renal cell carcinoma with nephrectomy, with possibility of definitive treatment for a limited stage separate primary, if that were found. If biopsy revealed metastatic disease in the lung, then management options would be different, especially considering his underlying medical issues Current Visit: Yes Status: Acute Code(s): C64.9 - MALIGNANT NEOPLASM OF UNSP KIDNEY, EXCEPT RENAL PELVIS SNOMED Code(s): 310403713
[2024-09-26 20:24] LABS: Amorphous Sediment,Urine Rare /hpf; Appearance,Urine Clear (Clear); Bilirubin,Urine Negative (Negative); Blood,Urine Trace (Negative); Color,Urine Yellow; Glucose,Urine (UA) 1+ (Negative); Ketones,Urine Negative (Negative); Leukocyte Esterase,Urine Negative (Negative); Mucus,Urine Rare /hpf; Nitrite,Urine Negative (Negative); PH, Urine 8.5 (5.0-8.0); Protein,Urine 3+ (Negative); RBC,Urine 14 /hpf (0-5); Specific Gravity,Urine 1.012 (1.001-1.035); Squamous Epithelial Cell,Urine 1 /hpf (0-4); Urobilinogen,Urine <2.0 mg/dL (<2.0); WBC,Urine 3 /hpf (0-5)
[2024-09-26 20:28] LABS: Glucose,Whole Blood 128 mg/dL (70-110)
[2024-09-27] MEDS: diphenhydrAMINE 25 MG CAP PO PRN (04:31)
[2024-09-27] MEDS: amLODIPine 10 MG TAB PO SCH (07:47)
[2024-09-27] MEDS ORDERED: BENZOCAINE/MENTHOL LOZENG 1 EACH LOZENGE MUCOUS MEM PRN (08:54)
[2024-09-27 08:56] LABS: HCT 36.2 % (39.6-50.0); HGB 11.8 g/dL (13.0-17.0); MCH 28.4 pg (27.0-32.0); MCHC 32.6 g/dL (32.0-37.0); MCV 87.2 fL (80.0-97.0); Platelet Count 113 10*3/uL (140-440); RBC 4.15 10*6/uL (4.40-5.60); RDW 16.8 % (11.5-14.5); WBC 6.98 10*3/uL (4.50-10.00)
[2024-09-27 09:33] LABS: African American GFR (CKD) 4 (>60 ml/min/1.73 sqM); Anion Gap 20 mmol/L; Blood Urea Nitrogen 74 mg/dL (9-20); Calcium 8.2 mg/dL (8.4-10.2); Carbon Dioxide 18 mmol/L (22-30); Chloride 98 mmol/L (98-107); Glucose 106 mg/dL (74-99); Non-African American GFR(CKD) 4 (>60 ml/min/1.73 sqM); Potassium 5.3 mmol/L (3.5-5.1); Sodium 136 mmol/L (137-145)
[2024-09-27] MEDS: guaiFENesin SYRUP 100MG/5ML 200 MG/10 ML CUP PO PRN (10:40)
--- NOTE | 2024-09-27 12:31 | P.PN ---
Subjective Progress Note Date: 09/27/24 Patient seen in follow-up for ESRD. Breathing stable today. No new complaints. Patient is awake, comfortable, no acute distress Examination of the heart S1 and S2 Examination of the lungs bilateral breath sounds are heard and diminished, +wheeze Abdomen is soft, non-tender Examination of lower extremities shows no edema Objective - Vital Signs Vital signs: Vital Signs Temp 97.6 F 09/27/24 07:43 Pulse 80 09/27/24 07:43 Resp 22 09/27/24 07:43 BP 118/73 09/27/24 07:43 Pulse Ox 99 09/27/24 07:43 FiO2 Intake & Output 09/26/24 09/27/24 09/27/24 18:59 06:59 18:59 Intake Total 10 20 130 Output Total 0 0 Balance 10 20 130 Weight 88.451 kg 88.6 kg Intake: IV 10 20 10 Invasive Line 2 10 20 10 Oral 120 Output: Gastric Drainage 0 Urine 0 0 Stool 0 0 Urine/Stool Mix 0 Emesis 0 Oral Regurgitation 0 Other 0 Other: Voiding Method Toilet Toilet Toilet Urinal Urinal Urinal # Voids 0 # Bowel Movements 0 - Labs CBC & Chem 7: 09/27/24 07:30 09/27/24 07:30 Labs: Abnormal Lab Results - Last 24 Hours (Table) 09/26/24 09/26/24 09/26/24 Range/Units 01:00 19:41 20:25 RBC (4.40-5.60) 10*6/uL Hgb (13.0-17.0) g/dL Hct (39.6-50.0) % Plt Count (140-440) 10*3/uL Immature Plt Fraction (1.1-6.1) % Sodium (137-145) mmol/L Potassium (3.5-5.1) mmol/L Carbon Dioxide (22-30) mmol/L BUN (9-20) mg/dL Creatinine (0.66-1.25) mg/dL Glucose (74-99) mg/dL POC Glucose (mg/dL) 128 H (70-110) mg/dL Calcium (8.4-10.2) mg/dL Iron 40 L (65-175) UG/DL TIBC 193 L (228-460) UG/DL Transferrin 138.0 L (204.0-354.0) mg/dL Lactate Dehydrogenase (120-246) U/L Vitamin B12 >3600.0 H (200.0-944.0) pg/mL Urine pH 8.5 H (5.0-8.0) Urine Protein 3+ H (Negative) Urine Glucose (UA) 1+ H (Negative) Urine Blood Trace H (Negative) Urine RBC 14 H (0-5) /hpf Amorphous Sediment Rare H (None) /hpf Urine Mucus Rare H (None) /hpf 09/27/24 09/27/24 09/27/24 Range/Units 07:30 07:30 07:30 RBC 4.15 L (4.40-5.60) 10*6/uL Hgb 11.8 L (13.0-17.0) g/dL Hct 36.2 L (39.6-50.0) % Plt Count 113 L (140-440) 10*3/uL Immature Plt Fraction 8.0 H (1.1-6.1) % Sodium 136 L (137-145) mmol/L Potassium 5.3 H (3.5-5.1) mmol/L Carbon Dioxide 18 L (22-30) mmol/L BUN 74 H (9-20) mg/dL Creatinine 12.44 H* (0.66-1.25) mg/dL Glucose 106 H (74-99) mg/dL POC Glucose (mg/dL) (70-110) mg/dL Calcium 8.2 L (8.4-10.2) mg/dL Iron (65-175) UG/DL TIBC (228-460) UG/DL Transferrin (204.0-354.0) mg/dL Lactate Dehydrogenase 255 H (120-246) U/L Vitamin B12 (200.0-944.0) pg/mL Urine pH (5.0-8.0) Urine Protein (Negative) Urine Glucose (UA) (Negative) Urine Blood (Negative) Urine RBC (0-5) /hpf Amorphous Sediment (None) /hpf Urine Mucus (None) /hpf Assessment and Plan Assessment: 1. ESRD on HD MWF. Missed HD Saturday 2. Acute RSV with vomiting and diarrhea 3. Anemia with CKD currently at goal 10-11.5 after 2 unit PRBC 09/25 4. HTN with CKD 5. MBD with CKD goal Phosphorus <5.5 on PhosLo 6. Hyperkalemia due to missed HD Plan: Plan for HD tomorrow to maintain MWF schedule Monitor Hb closely initial Hb 5.2 K stable will manage with HD tomorrow Continue home BP medications
--- NOTE | 2024-09-27 13:39 | P.PN ---
Subjective Progress Note Date: 09/27/24 Principal diagnosis: Acute blood loss anemia This is a 74-year-old white male with history of end-stage renal disease, on hemodialysis, patient underwent robotic iron bronchoscopy by Dr. Santa on 09/24/2024, patient had transbronchial biopsy of small 1.4 lingular nodule highly suspicious for metastatic disease to the lingula. Patient had uneventful bronchoscopy, patient presented to the ER yesterday with mostly symptoms of nausea vomiting, occasional cough, no abdominal pain, no fever, no chills, no fever no chills, no headaches, no blurred vision, no dizziness. Workup in the ER showed very low hemoglobin of 5.2 and he was found to have elevated BUN of 45 creatinine 9.87, elevated BNP level of 151,000, chest x-ray showed prominence of the pulmonary vasculature, and his viral screen came back positive for RSV PCR. We were asked to see the patient in consultation, patient received 2 units of packed RBCs for his low hemoglobin and his follow-up hemoglobin today was 11.9. Patient is yet to be seen by nephrology for hemodialysis sometime later today. Patient did not seem to be in any distress, his O2 saturation was 99% on 3 L nasal cannula. On physical examination he had minimal wheezing bilaterally and crackles at the bases. Seen today on 09/27/2024, patient is doing better today, breathing easier, does not seem to be in any distress, surprisingly the patient did not undergo hemodialysis, he was seen by nephrology and the plan is to dialyze the patient tomorrow on Saturday. Patient did receive 2 units of packed RBCs his hemoglobin today is 11.8. WBC count is 6.9, electrolytes are normal except for potassium of 5.3 bicarb is 18 and anion gap is 20 BUN now is 74 creatinine 12.44 Objective - Vital Signs Vital signs: Vital Signs Temp 97.4 F L 09/27/24 12:03 Pulse 71 09/27/24 12:03 Resp 20 09/27/24 12:03 BP 108/64 09/27/24 12:03 Pulse Ox 98 09/27/24 12:03 FiO2 Intake & Output 09/26/24 09/27/24 09/27/24 18:59 06:59 18:59 Intake Total 10 20 130 Output Total 0 0 Balance 10 20 130 Weight 88.451 kg 88.6 kg Intake: IV 10 20 10 Invasive Line 2 10 20 10 Oral 120 Output: Gastric Drainage 0 Urine 0 0 Stool 0 0 Urine/Stool Mix 0 Emesis 0 Oral Regurgitation 0 Other 0 Other: Voiding Method Toilet Toilet Toilet Urinal Urinal Urinal # Voids 0 # Bowel Movements 0 - Exam GENERAL: Revealed a 74-year-old white male, on 2 L nasal cannula, in no distress HEENT: Dry mucous membranes, PERRLA, EOMI, anicteric, no neck masses no JVD CARDIOVASCULAR: Irregular irregular rhythm S1 and S2 present. No murmurs, rubs, or gallops. PULMONARY: Minimal crackles and wheezing, noted bilaterally ABDOMEN: Obese, soft, nontender, no rebound, no guarding, positive bowel sounds. MUSCULOSKELETAL: No deformities no limitation range of motion EXTREMITIES: No clubbing edema or cyanosis NEUROLOGICAL: Continues to have slight confusion otherwise no focal deficit SKIN: No rashes. - Labs CBC & Chem 7: 09/27/24 07:30 09/27/24 07:30 Labs: Abnormal Lab Results - Last 24 Hours (Table) 09/26/24 09/26/24 09/26/24 Range/Units 01:00 19:41 20:25 RBC (4.40-5.60) 10*6/uL Hgb (13.0-17.0) g/dL Hct (39.6-50.0) % Plt Count (140-440) 10*3/uL Immature Plt Fraction (1.1-6.1) % Sodium (137-145) mmol/L Potassium (3.5-5.1) mmol/L Carbon Dioxide (22-30) mmol/L BUN (9-20) mg/dL Creatinine (0.66-1.25) mg/dL Glucose (74-99) mg/dL POC Glucose (mg/dL) 128 H (70-110) mg/dL Calcium (8.4-10.2) mg/dL Iron 40 L (65-175) UG/DL TIBC 193 L (228-460) UG/DL Transferrin 138.0 L (204.0-354.0) mg/dL Lactate Dehydrogenase (120-246) U/L Vitamin B12 >3600.0 H (200.0-944.0) pg/mL Urine pH 8.5 H (5.0-8.0) Urine Protein 3+ H (Negative) Urine Glucose (UA) 1+ H (Negative) Urine Blood Trace H (Negative) Urine RBC 14 H (0-5) /hpf Amorphous Sediment Rare H (None) /hpf Urine Mucus Rare H (None) /hpf 09/27/24 09/27/24 09/27/24 Range/Units 07:30 07:30 07:30 RBC 4.15 L (4.40-5.60) 10*6/uL Hgb 11.8 L (13.0-17.0) g/dL Hct 36.2 L (39.6-50.0) % Plt Count 113 L (140-440) 10*3/uL Immature Plt Fraction 8.0 H (1.1-6.1) % Sodium 136 L (137-145) mmol/L Potassium 5.3 H (3.5-5.1) mmol/L Carbon Dioxide 18 L (22-30) mmol/L BUN 74 H (9-20) mg/dL Creatinine 12.44 H* (0.66-1.25) mg/dL Glucose 106 H (74-99) mg/dL POC Glucose (mg/dL) (70-110) mg/dL Calcium 8.2 L (8.4-10.2) mg/dL Iron (65-175) UG/DL TIBC (228-460) UG/DL Transferrin (204.0-354.0) mg/dL Lactate Dehydrogenase 255 H (120-246) U/L Vitamin B12 (200.0-944.0) pg/mL Urine pH (5.0-8.0) Urine Protein (Negative) Urine Glucose (UA) (Negative) Urine Blood (Negative) Urine RBC (0-5) /hpf Amorphous Sediment (None) /hpf Urine Mucus (None) /hpf Assessment and Plan Assessment: Impression: Acute blood loss anemia requiring 2 units of packed RBCs in the ER Chronic end-stage renal disease, on hemodialysis Acute RSV infection Acute fluid overload secondary to chronic kidney disease, recommend hemodialysis, patient is being followed by nephrology Solitary lung nodule status post robotic Ion bronchoscopy and biopsy results are pending Benign essential hypertension Chronic atrial fibrillation on Coumadin History of renal cell carcinoma, being followed by urology. Recommendation: Supportive care measures GI workup for further evaluation for possible GI blood losses/anemia workup Continue Protonix Resume home meds Continue bronchodilators/DuoNeb Medrol Dosepak for his cough/secondary to RSV Will continue to follow Time with Patient: Less than 30
--- NOTE | 2024-09-27 13:41 | P.PN ---
Subjective Progress Note Date: 09/27/24 patient is a 74-year-old gentleman with past medical history significant for end-stage renal disease on dialysis, hypertension who presented to the ER because of nausea and vomiting. Patient stated that he was all right couple of days ago and started having nausea and vomiting. Patient had multiple episodes of vomiting. Patient denies abdominal pain. Patient also complaining of diarrhea. Patient underwent bronchoscopy on 09/24 which he tolerated. There was no complaint of fever or chill. Patient denies any chest pain, shortness of breath. Patient denies any lightheaded dizziness. Because of this nausea and vomiting, patient came to the ER Initial lab work done in the ER showed WBC 9.39, hemoglobin 5.2, platelet count 223, sodium 138, potassium 5.2 BUN 45, creatinine 0.87, lactate 3.4 calcium 8.7, bilirubin 1.8, proBNP 151,000 occult blood negative Influenza A not detected Influenza B not detected RSV detected COVID-19 not detected EKG done in the ER showed heart rate of 102, irregular rhythm, no ST segment elevation or depression seen, no T-wave inversions seen. Chest x-ray done in the ER showed no acute cardiopulmonary process CT chest done on 09/24 showed 1.4 cm inferior lingular pulmonary nodule, COPD with mild emphysema, pulmonary hypertension with borderline cardiomegaly Patient admitted to internal medicine service 09/27. Patient seen and examined. Blood work done showed WB 6.9, hemoglobin 9.8, sodium 136, potassium 5.3, BUN 74, creatinine 12.44. Complaining of cough. Complaining of shortness of breath REVIEW OF SYSTEMS: CONSTITUTIONAL: No fever, no malaise,. CARDIOVASCULAR: No chest pain, no palpitations, no syncope. PULMONARY: As mentioned above GASTROINTESTINAL: No diarrhea, no nausea, no vomiting, no abdominal pain. NEUROLOGICAL: No headaches, no weakness, PHYSICAL EXAMINATION: GENERAL: The patient is alert and oriented x3, not in any acute distress. Well developed, well nourished. HEENT: Pupils are round and equally reacting to light. EOMI. No scleral icterus. No conjunctival pallor. Normocephalic, atraumatic. No pharyngeal erythema. No th yromegaly. CARDIOVASCULAR: S1 and S2 present. No murmurs, rubs, or gallops. PULMONARY: Good air entry bilaterally, bilateral expiratory wheeze already ABDOMEN: Soft, nontender, nondistended, normoactive bowel sounds. No palpable organomegaly. MUSCULOSKELETAL: No joint swelling or deformity. EXTREMITIES: No cyanosis, clubbing, or pedal edema. NEUROLOGICAL: Gross neurological examination did not reveal any focal deficits. SKIN: No rashes. Assessment and plan Acute blood loss anemia Acute RSV infection Acute hypoxic respiratory failure Hyperkalemia lactic acidosis End-stage renal disease on dialysis Hypertension 1.4 cm pulmonary nodule History of atrial fibrillation on Coumadin History of renal cell carcinoma Monitor vital signs Monitor CBC Monitor CMP Continue telemetry monitoring Monitor H&H S/p transfusion of 2 units of packed red blood cell Continue breathing treatments Continue Medrol Dosepak Continue IV Protonix Continue Coreg, amlodipine Nephrology following for maintenance dialysis Hematology following, recommend no further workup for anemia Pulmonology following Labs and medication were reviewed.. Continue same treatment. Continue with symptomatic treatment. Resume home medication. Monitor labs and vitals. DVT and GI prophylaxis. Further recommendations as per clinical course of the patient Dictation was produced using [employer] dictation software. please excuse any grammatical, word or spelling errors. Objective - Vital Signs Vital signs: Vital Signs Temp 97.6 F 09/27/24 07:43 Pulse 80 09/27/24 07:43 Resp 22 09/27/24 07:43 BP 118/73 09/27/24 07:43 Pulse Ox 99 09/27/24 07:43 FiO2 Intake & Output 09/26/24 09/27/24 09/27/24 18:59 06:59 18:59 Intake Total 10 20 10 Output Total 0 0 Balance 10 20 10 Weight 88.451 kg 88.6 kg Intake: IV 10 20 10 Invasive Line 2 10 20 10 Output: Gastric Drainage 0 Urine 0 0 Stool 0 0 Urine/Stool Mix 0 Emesis 0 Oral Regurgitation 0 Other 0 Other: Voiding Method Toilet Toilet Toilet Urinal Urinal Urinal # Voids 0 # Bowel Movements 0 - Labs CBC & Chem 7: 09/27/24 07:30 09/27/24 07:30 Labs: Abnormal Lab Results - Last 24 Hours (Table) 09/26/24 09/26/24 09/26/24 Range/Units 01:00 19:41 20:25 RBC (4.40-5.60) 10*6/uL Hgb (13.0-17.0) g/dL Hct (39.6-50.0) % Plt Count (140-440) 10*3/uL Immature Plt Fraction (1.1-6.1) % Sodium (137-145) mmol/L Potassium (3.5-5.1) mmol/L Carbon Dioxide (22-30) mmol/L BUN (9-20) mg/dL Creatinine (0.66-1.25) mg/dL Glucose (74-99) mg/dL POC Glucose (mg/dL) 128 H (70-110) mg/dL Calcium (8.4-10.2) mg/dL Iron 40 L (65-175) UG/DL TIBC 193 L (228-460) UG/DL Transferrin 138.0 L (204.0-354.0) mg/dL Lactate Dehydrogenase (120-246) U/L Vitamin B12 >3600.0 H (200.0-944.0) pg/mL Urine pH 8.5 H (5.0-8.0) Urine Protein 3+ H (Negative) Urine Glucose (UA) 1+ H (Negative) Urine Blood Trace H (Negative) Urine RBC 14 H (0-5) /hpf Amorphous Sediment Rare H (None) /hpf Urine Mucus Rare H (None) /hpf 09/27/24 09/27/24 09/27/24 Range/Units 07:30 07:30 07:30 RBC 4.15 L (4.40-5.60) 10*6/uL Hgb 11.8 L (13.0-17.0) g/dL Hct 36.2 L (39.6-50.0) % Plt Count 113 L (140-440) 10*3/uL Immature Plt Fraction 8.0 H (1.1-6.1) % Sodium 136 L (137-145) mmol/L Potassium 5.3 H (3.5-5.1) mmol/L Carbon Dioxide 18 L (22-30) mmol/L BUN 74 H (9-20) mg/dL Creatinine 12.44 H* (0.66-1.25) mg/dL Glucose 106 H (74-99) mg/dL POC Glucose (mg/dL) (70-110) mg/dL Calcium 8.2 L (8.4-10.2) mg/dL Iron (65-175) UG/DL TIBC (228-460) UG/DL Transferrin (204.0-354.0) mg/dL Lactate Dehydrogenase 255 H (120-246) U/L Vitamin B12 (200.0-944.0) pg/mL Urine pH (5.0-8.0) Urine Protein (Negative) Urine Glucose (UA) (Negative) Urine Blood (Negative) Urine RBC (0-5) /hpf Amorphous Sediment (None) /hpf Urine Mucus (None) /hpf
[2024-09-27 15:15] LABS: Reticulocyte % 2.33 % (0.10-1.80)
[2024-09-28] MEDS: PANTOPRAZOLE 40 MG TABLET PO SCH (06:51)
--- NOTE | 2024-09-28 09:50 | P.PN ---
Subjective Patient is seen in follow-up for end-stage renal disease. Scheduled for dialysis today. Dyspnea improved. On nasal cannula. Oral intake fair. Vital signs are stable. General: No acute distress. HEENT: Head exam is unremarkable. On nasal cannula. LUNGS: No audible rhonchi or wheezes. HEART: Rate and Rhythm are regular. ABDOMEN: Nontender. EXTREMITITES: No edema. Objective - Vital Signs Vital signs: Vital Signs Temp 97.4 F L 09/28/24 03:33 Pulse 83 09/28/24 03:33 Resp 22 09/28/24 03:33 BP 128/73 09/28/24 03:33 Pulse Ox 99 09/28/24 03:33 FiO2 Intake & Output 09/27/24 09/28/24 09/28/24 18:59 06:59 18:59 Intake Total 130 180 Output Total 0 0 Balance 130 0 180 Weight 86.5 kg Intake: IV 10 Invasive Line 2 10 Oral 120 180 Output: Gastric Drainage 0 Urine 0 Stool 0 0 Urine/Stool Mix 0 Emesis 0 Oral Regurgitation 0 Other 0 Other: Voiding Method Toilet Toilet Urinal Urinal # Voids 0 1 0 # Bowel Movements 0 - Labs CBC & Chem 7: 09/27/24 07:30 09/27/24 07:30 Labs: Abnormal Lab Results - Last 24 Hours (Table) 09/27/24 09/27/24 Range/Units 07:30 07:30 Retic Count 2.33 H (0.10-1.80) % Sodium 136 L (137-145) mmol/L Potassium 5.3 H (3.5-5.1) mmol/L Carbon Dioxide 18 L (22-30) mmol/L BUN 74 H (9-20) mg/dL Creatinine 12.44 H* (0.66-1.25) mg/dL Glucose 106 H (74-99) mg/dL Calcium 8.2 L (8.4-10.2) mg/dL Assessment and Plan Plan: Assessment: 1. End-stage renal disease maintained on hemodialysis on Saturday schedule. 2. Acute RSV infection. 3. Hypertension with chronic knee disease. 4. Chronic kidney disease mineral bone disease maintained on PhosLo. 5. Renal cell carcinoma and pulmonary nodule being followed by oncology. Statu s post bronchoscopy. Plan: Hemodialysis today.
[2024-09-28] MEDS: IPRATROPIUM-ALBUTEROL 3 ML NEB INHALATION PRN (12:48)
--- NOTE | 2024-09-28 13:13 | P.PN ---
Subjective Progress Note Date: 09/28/24 Principal diagnosis: Nausea and vomiting. This is a 74-year-old white male with history of end-stage renal disease, on hemodialysis, patient underwent robotic iron bronchoscopy by Dr. Santa on 09/24/2024, patient had transbronchial biopsy of small 1.4 lingular nodule highly suspicious for metastatic disease to the lingula. Patient had uneventful bronchoscopy, patient presented to the ER yesterday with mostly symptoms of nausea vomiting, occasional cough, no abdominal pain, no fever, no chills, no fever no chills, no headaches, no blurred vision, no dizziness. Workup in the ER showed very low hemoglobin of 5.2 and he was found to have elevated BUN of 45 creatinine 9.87, elevated BNP level of 151,000, chest x-ray showed prominence of the pulmonary vasculature, and his viral screen came back positive for RSV PCR. We were asked to see the patient in consultation, patient received 2 units of packed RBCs for his low hemoglobin and his follow-up hemoglobin today was 11.9. Patient is yet to be seen by nephrology for hemodialysis sometime later today. Patient did not seem to be in any distress, his O2 saturation was 99% on 3 L nasal cannula. On physical examination he had minimal wheezing bilaterally and crackles at the bases. Seen today on 09/27/2024, patient is doing better today, breathing easier, does not seem to be in any distress, surprisingly the patient did not undergo hemodialysis, he was seen by nephrology and the plan is to dialyze the patient tomorrow on Saturday. Patient did receive 2 units of packed RBCs his hemoglobin today is 11.8. WBC count is 6.9, electrolytes are normal except for potassium of 5.3 bicarb is 18 and anion gap is 20 BUN now is 74 creatinine 12.44 Progress note dated September 28, 2024. 74-year-old male seen today in room 370. The patient underwent robotic bronchoscopy, on September 24, for lingular mass, measuring 11 x 11 mm. He also tested positive for RSV. He is currently on 3 L by nasal cannula. He is not receiving any IV fluids. The patient is anticipating hemodialysis today. He is resting comfortably in bed, complaining of primarily cough, and phlegm production. No new laboratory data today. Microbiology is currently negative. No chest x-ray today. Objective - Vital Signs Vital signs: Vital Signs Temp 97.8 F 09/28/24 11:15 Pulse 84 09/28/24 13:00 Resp 22 09/28/24 11:15 BP 114/72 09/28/24 11:15 Pulse Ox 97 09/28/24 11:15 FiO2 Intake & Output 09/27/24 09/28/24 09/28/24 18:59 06:59 18:59 Intake Total 130 180 Output Total 0 0 0 Balance 130 0 180 Weight 86.5 kg Intake: IV 10 Invasive Line 2 10 Oral 120 180 Output: Gastric Drainage 0 Urine 0 Stool 0 0 0 Urine/Stool Mix 0 Emesis 0 Oral Regurgitation 0 Other 0 Other: Voiding Method Toilet Toilet Toilet Urinal Urinal Urinal # Voids 0 1 0 # Bowel Movements 0 - Exam No acute distress, oriented 3. HEENT examination is grossly unremarkable. Mucous membranes are moist. No oral lesions. Neck supple. Full range of motion. No adenopathy thyromegaly or neck vein distention. Cardiovascular examination reveals regular rhythm rate. S1-S2 normal. No S3 or S4. No discernible murmur noted. Lungs reveal clear breath sounds. Her sounds are equal bilaterally. No adventitious lung sounds including wheezes rhonchi or crackles. Abdomen soft bowel sounds are heard. No masses or tenderness. No acute distress, oriented 3. Frequent cough. HEENT examination is grossly unremarkable. Mucous membranes are moist. No oral lesions. Neck supple. Full range of motion. No adenopathy thyromegaly or neck vein distention. Cardiovascular examination reveals an irregular rhythm and rate. S1-S2 normal. No S3 or S4. No discernible murmur noted. Lungs reveal scattered crackles and rhonchi. No wheezes. Breath sounds equal bilaterally. Abdomen soft bowel sounds are heard. No masses or tenderness. Extremities are intact. No cyanosis clubbing or edema. Skin is without rash or lesion. Neurologic examination is brief but nonfocal. - Labs CBC & Chem 7: 09/27/24 07:30 09/27/24 07:30 Labs: Abnormal Lab Results - Last 24 Hours (Table) 09/27/24 Range/Units 07:30 Retic Count 2.33 H (0.10-1.80) % Assessment and Plan Assessment: Acute blood loss anemia, requiring 2 units of packed red blood cells, in the emergency department. Chronic end-stage renal disease, currently on hemodialysis. Acute RSV infection. Acute fluid overload secondary to chronic kidney disease. Solitary pulmonary nodule, measuring 11 x 11, in the lingula, S/P robotic bronchoscopy, September 24, 2024. Benign essential hypertension. Chronic atrial fibrillation. History of renal cell carcinoma. Plan: Plan dated September 28, 2024. The patient will be hopefully receiving hemodialysis sometime later today. Currently, the patient only complains of cough, and phlegm production. He is on 3 L of oxygen by nasal cannula. He is not receiving any IV fluids. Labs, x- rays, and all medications are reviewed. We will continue to follow and make recommendations. Pathology reports, are not yet back on the chart from the procedure done last week. Prognosis is guarded. Dictation was produced using [employer] dictation software. Please excuse any grammatical, word or spelling errors. Time with Patient: Less than 30
[2024-09-28 17:23] LABS: Hepatitis B Surface Antigen Nonreactive (Nonreactive)
[2024-09-28 18:00] LABS: Hepatitis B Surface AB- Quant 35.2 mIU/mL
[2024-09-29 06:26] LABS: Basophils # (A) 0.01 10*3/uL (0.00-0.10); Basophils % (A) 0.1 %; HCT 37.1 % (39.6-50.0); HGB 11.7 g/dL (13.0-17.0); Lymphocytes # (A) 0.83 10*3/uL (0.90-5.00); Lymphocytes % (A) 11.5 %; MCH 27.5 pg (27.0-32.0); MCHC 31.5 g/dL (32.0-37.0); MCV 87.1 fL (80.0-97.0); Mean Platelet Volume 10.9 fL (9.5-12.2); Monocytes # (A) 0.79 10*3/uL (0.20-1.00); Monocytes % (A) 10.9 %; Neutrophils # (A) 5.57 10*3/uL (1.80-7.70); Neutrophils % (A) 77.1 %; Platelet Count 138 10*3/uL (140-440); RBC 4.26 10*6/uL (4.40-5.60); RDW 16.9 % (11.5-14.5); WBC 7.23 10*3/uL (4.50-10.00)
[2024-09-29 06:47] LABS: African American GFR (CKD) 6 (>60 ml/min/1.73 sqM); Anion Gap 12 mmol/L; Blood Urea Nitrogen 51 mg/dL (9-20); Calcium 8.4 mg/dL (8.4-10.2); Carbon Dioxide 28 mmol/L (22-30); Chloride 94 mmol/L (98-107); Glucose 108 mg/dL (74-99); Non-African American GFR(CKD) 5 (>60 ml/min/1.73 sqM); Potassium 4.5 mmol/L (3.5-5.1); Sodium 134 mmol/L (137-145)
[2024-09-29 09:54] VITALS: TEMP 98.2
--- NOTE | 2024-09-29 09:54 | P.PN ---
Subjective Patient is seen in follow-up for end-stage renal disease. No problems with dialysis yesterday. Denies chest pain or shortness of breath. On nasal cannula. Oral intake fair. Vital signs are stable. General: No acute distress. HEENT: Head exam is unremarkable. On nasal cannula. LUNGS: No audible rhonchi or wheezes. HEART: Rate and Rhythm are regular. ABDOMEN: Nontender. EXTREMITITES: No edema. Objective - Vital Signs Vital signs: Vital Signs Temp 98.1 F 09/29/24 03:35 Pulse 91 09/29/24 03:35 Resp 20 09/29/24 03:35 BP 120/69 09/29/24 03:35 Pulse Ox 98 09/29/24 03:35 FiO2 Intake & Output 09/28/24 09/29/24 09/29/24 18:59 06:59 18:59 Intake Total 1000 Output Total 4400 0 Balance -3400 0 Intake: Oral 600 Hemodialysis 400 Output: Urine 0 Stool 0 0 Hemodialysis 2400 Hemodialysis Net Amount 2000 Other: Voiding Method Toilet Toilet Urinal Urinal # Voids 0 1 - Labs CBC & Chem 7: 09/29/24 06:09 09/29/24 06:09 Labs: Abnormal Lab Results - Last 24 Hours (Table) 09/27/24 09/29/24 09/29/24 Range/Units 07:30 06:09 06:09 RBC 4.26 L (4.40-5.60) 10*6/uL Hgb 11.7 L (13.0-17.0) g/dL Hct 37.1 L (39.6-50.0) % MCHC 31.5 L (32.0-37.0) g/dL Plt Count 138 L (140-440) 10*3/uL Lymphocytes # 0.83 L (0.90-5.00) 10*3/uL Eosinophils # 0.00 L (0.04-0.35) 10*3/uL Sodium 134 L (137-145) mmol/L Chloride 94 L (98-107) mmol/L BUN 51 H (9-20) mg/dL Creatinine 8.93 H* (0.66-1.25) mg/dL Glucose 108 H (74-99) mg/dL Hep Bs Antibody A (Negative) Assessment and Plan Plan: Assessment: 1. End-stage renal disease maintained on hemodialysis on Saturday schedule. 2. Acute RSV infection. 3. Hypertension with chronic knee disease. 4. Chronic kidney disease mineral bone disease maintained on PhosLo. 5. Renal cell carcinoma and pulmonary nodule being followed by oncology. Status post bronchoscopy. Plan: Hemodialysis tomorrow.
--- NOTE | 2024-09-29 11:46 | P.PN ---
Subjective Progress Note Date: 09/29/24 Principal diagnosis: Nausea and vomiting. This is a 74-year-old white male with history of end-stage renal disease, on hemodialysis, patient underwent robotic iron bronchoscopy by Dr. Santa on 09/24/2024, patient had transbronchial biopsy of small 1.4 lingular nodule highly suspicious for metastatic disease to the lingula. Patient had uneventful bronchoscopy, patient presented to the ER yesterday with mostly symptoms of nausea vomiting, occasional cough, no abdominal pain, no fever, no chills, no fever no chills, no headaches, no blurred vision, no dizziness. Workup in the ER showed very low hemoglobin of 5.2 and he was found to have elevated BUN of 45 creatinine 9.87, elevated BNP level of 151,000, chest x-ray showed prominence of the pulmonary vasculature, and his viral screen came back positive for RSV PCR. We were asked to see the patient in consultation, patient received 2 units of packed RBCs for his low hemoglobin and his follow-up hemoglobin today was 11.9. Patient is yet to be seen by nephrology for hemodialysis sometime later today. Patient did not seem to be in any distress, his O2 saturation was 99% on 3 L nasal cannula. On physical examination he had minimal wheezing bilaterally and crackles at the bases. Seen today on 09/27/2024, patient is doing better today, breathing easier, does not seem to be in any distress, surprisingly the patient did not undergo hemodialysis, he was seen by nephrology and the plan is to dialyze the patient tomorrow on Saturday. Patient did receive 2 units of packed RBCs his hemoglobin today is 11.8. WBC count is 6.9, electrolytes are normal except for potassium of 5.3 bicarb is 18 and anion gap is 20 BUN now is 74 creatinine 12.44 Progress note dated September 28, 2024. 74-year-old male seen today in room 370. The patient underwent robotic bronchoscopy, on September 24, for lingular mass, measuring 11 x 11 mm. He also tested positive for RSV. He is currently on 3 L by nasal cannula. He is not receiving any IV fluids. The patient is anticipating hemodialysis today. He is resting comfortably in bed, complaining of primarily cough, and phlegm production. No new laboratory data today. Microbiology is currently negative. No chest x-ray today. Progress note dated September 29, 2024. 74-year-old male seen today in room 370. He is resting comfortably in bed. He continues on oxygen, by nasal cannula 3 L. The patient had hemodialysis, yesterday, September 28, and 2 L was removed. The patient is not expected to have hemodialysis today. From the pulmonary standpoint, the patient appears to be relatively stable, could be considered for possible discharge. He denies any shortness of breath, cough, wheezing, chest tightness, or phlegm production. He seems anxious to go home. White count of 7.2, hemoglobin 11.7, hematocrit 37.1, and platelet count 138,000. Sodium 134, potassium 4.5, chlorides 94, CO2 28, anion gap 12, BUN 51, and creatinine 8.93. Glucose was 108. Objective - Vital Signs Vital signs: Vital Signs Temp 98.2 F 09/29/24 08:00 Pulse 68 09/29/24 08:00 Resp 20 09/29/24 09:53 BP 114/69 09/29/24 08:00 Pulse Ox 95 09/29/24 09:53 FiO2 Intake & Output 09/28/24 09/29/24 09/29/24 18:59 06:59 18:59 Intake Total 1000 Output Total 4400 0 0 Balance -3400 0 0 Intake: Oral 600 Hemodialysis 400 Output: Urine 0 Stool 0 0 0 Hemodialysis 2400 Hemodialysis Net Amount 2000 Other: Voiding Method Toilet Toilet Toilet Urinal Urinal Urinal # Voids 0 1 - Exam No acute distress, oriented 3. Frequent cough. Currently on 3 L. HEENT examination is grossly unremarkable. Mucous membranes are moist. No oral lesions. Neck supple. Full range of motion. No adenopathy thyromegaly or neck vein distention. Cardiovascular examination reveals an irregular rhythm and rate. S1-S2 normal. No S3 or S4. No discernible murmur noted. Lungs reveal scattered crackles and rhonchi. No wheezes. Breath sounds equal bilaterally. Abdomen soft bowel sounds are heard. No masses or tenderness. Extremities are intact. No cyanosis clubbing or edema. Skin is without rash or lesion. Neurologic examination is brief but nonfocal. - Labs CBC & Chem 7: 09/29/24 06:09 09/29/24 06:09 Labs: Abnormal Lab Results - Last 24 Hours (Table) 09/27/24 09/29/24 09/29/24 Range/Units 07:30 06:09 06:09 RBC 4.26 L (4.40-5.60) 10*6/uL Hgb 11.7 L (13.0-17.0) g/dL Hct 37.1 L (39.6-50.0) % MCHC 31.5 L (32.0-37.0) g/dL Plt Count 138 L (140-440) 10*3/uL Lymphocytes # 0.83 L (0.90-5.00) 10*3/uL Eosinophils # 0.00 L (0.04-0.35) 10*3/uL Sodium 134 L (137-145) mmol/L Chloride 94 L (98-107) mmol/L BUN 51 H (9-20) mg/dL Creatinine 8.93 H* (0.66-1.25) mg/dL Glucose 108 H (74-99) mg/dL Hep Bs Antibody A (Negative) Assessment and Plan Assessment: Acute blood loss anemia, requiring 2 units of packed red blood cells, in the emergency department. Chronic end-stage renal disease, currently on hemodialysis. Acute RSV infection. Acute fluid overload secondary to chronic kidney disease. Solitary pulmonary nodule, measuring 11 x 11, in the lingula, S/P robotic bro nchoscopy, September 24, 2024. Benign essential hypertension. Chronic atrial fibrillation. History of renal cell carcinoma. Plan: Plan dated September 28, 2024. The patient will be hopefully receiving hemodialysis sometime later today. Currently, the patient only complains of cough, and phlegm production. He is on 3 L of oxygen by nasal cannula. He is not receiving any IV fluids. Labs, x-r ays, and all medications are reviewed. We will continue to follow and make recommendations. Pathology reports, are not yet back on the chart from the procedure done last week. Prognosis is guarded. Dictation was produced using [employer] dictation software. Please excuse any grammatical, word or spelling errors. Plan dated September 29, 2024. The patient appears to be doing relatively well. He is on 3 L of oxygen. The patient did have hemodialysis yesterday, 2 L was removed. He will have hemodial ysis again tomorrow. All labs, x-rays, and medications are reviewed. The patient is sitting in a chair next to his hospital bed. He looks very comfortable. He looks like he wants to be discharged home, and states so. All labs, x-rays, and medications are reviewed. Prognosis is guarded. Dictation was produced using [employer] dictation software. Please excuse any grammatical, word or spelling errors. Time with Patient: Less than 30
[2024-09-29 12:30] VITALS: BP 100/65
[2024-09-29 14:16] VITALS: PULSE 68; RESP 20
--- NOTE | 2024-09-29 14:53 | P.PN ---
Subjective Progress Note Date: 09/28/24 patient is a 74-year-old gentleman with past medical history significant for end-stage renal disease on dialysis, hypertension who presented to the ER because of nausea and vomiting. Patient stated that he was all right couple of days ago and started having nausea and vomiting. Patient had multiple episodes of vomiting. Patient denies abdominal pain. Patient also complaining of diarrhea. Patient underwent bronchoscopy on 09/24 which he tolerated. There was no complaint of fever or chill. Patient denies any chest pain, shortness of breath. Patient denies any lightheaded dizziness. Because of this nausea and vomiting, patient came to the ER Initial lab work done in the ER showed WBC 9.39, hemoglobin 5.2, platelet count 223, sodium 138, potassium 5.2 BUN 45, creatinine 0.87, lactate 3.4 calcium 8.7, bilirubin 1.8, proBNP 151,000 occult blood negative Influenza A not detected Influenza B not detected RSV detected COVID-19 not detected EKG done in the ER showed heart rate of 102, irregular rhythm, no ST segment elevation or depression seen, no T-wave inversions seen. Chest x-ray done in the ER showed no acute cardiopulmonary process CT chest done on 09/24 showed 1.4 cm inferior lingular pulmonary nodule, COPD with mild emphysema, pulmonary hypertension with borderline cardiomegaly Patient admitted to internal medicine service 09/27. Patient seen and examined. Blood work done showed WB 6.9, hemoglobin 9.8, sodium 136, potassium 5.3, BUN 74, creatinine 12.44. Complaining of cough. Complaining of shortness of breath REVIEW OF SYSTEMS: CONSTITUTIONAL: No fever, no malaise,. CARDIOVASCULAR: No chest pain, no palpitations, no syncope. PULMONARY: As mentioned above GASTROINTESTINAL: No diarrhea, no nausea, no vomiting, no abdominal pain. NEUROLOGICAL: No headaches, no weakness, PHYSICAL EXAMINATION: GENERAL: The patient is alert and oriented x3, not in any acute distress. Well developed, well nourished. HEENT: Pupils are round and equally reacting to light. EOMI. No scleral icterus. No conjunctival pallor. Normocephalic, atraumatic. No pharyngeal erythema. No t hyromegaly. CARDIOVASCULAR: S1 and S2 present. No murmurs, rubs, or gallops. PULMONARY: Good air entry bilaterally, bilateral expiratory wheeze already ABDOMEN: Soft, nontender, nondistended, normoactive bowel sounds. No palpable organomegaly. MUSCULOSKELETAL: No joint swelling or deformity. EXTREMITIES: No cyanosis, clubbing, or pedal edema. NEUROLOGICAL: Gross neurological examination did not reveal any focal deficits. SKIN: No rashes. Assessment and plan Acute blood loss anemia Hemoglobin 5.2 on admission. Improved to 11.6 with 2 units of blood transfusion. Initial result likely lab result. Hemolysis workup is negative. Acute RSV infection Acute hypoxic respiratory failure due to fluid overload and RSV infection Hyperkalemia lactic acidosis End-stage renal disease on dialysis Hypertension 1.4 cm pulmonary nodule. Biopsy was done awaiting results. History of atrial fibrillation on Coumadin History of renal cell carcinoma Monitor vital signs Monitor CBC Monitor CMP Continue telemetry monitoring Monitor H&H S/p transfusion of 2 units of packed red blood cell. Hemoglobin stable around 11. Continue breathing treatments Continue Medrol Dosepak Continue IV Protonix Continue Coreg, amlodipine Nephrology following for maintenance dialysis Hematology following, recommend no further workup for anemia Pulmonology following Labs and medication were reviewed.. Continue same treatment. Continue with symptomatic treatment. Resume home medication. Monitor labs and vitals. DVT and GI prophylaxis. Further recommendations as per clinical course of the patient Dictation was produced using [employer] dictation software. please excuse any grammatical, word or spelling errors. Objective - Vital Signs Vital signs: Vital Signs Temp 97.5 F L 09/28/24 08:15 Pulse 87 09/28/24 08:15 Resp 22 09/28/24 08:15 BP 99/62 09/28/24 08:15 Pulse Ox 94 L 09/28/24 08:15 FiO2 Intake & Output 09/27/24 09/28/24 09/28/24 18:59 06:59 18:59 Intake Total 130 180 Output Total 0 0 0 Balance 130 0 180 Weight 86.5 kg Intake: IV 10 Invasive Line 2 10 Oral 120 180 Output: Gastric Drainage 0 Urine 0 Stool 0 0 0 Urine/Stool Mix 0 Emesis 0 Oral Regurgitation 0 Other 0 Other: Voiding Method Toilet Toilet Toilet Urinal Urinal Urinal # Voids 0 1 0 # Bowel Movements 0 - Labs CBC & Chem 7: 09/29/24 06:09 09/29/24 06:09 Labs: Abnormal Lab Results - Last 24 Hours (Table) 09/27/24 Range/Units 07:30 Retic Count 2.33 H (0.10-1.80) % Assessment and Plan Time with Patient: Greater than 30
--- NOTE | 2024-09-29 15:11 | XR ---
EXAMINATION TYPE: XR chest 1V portable DATE OF EXAM: 09/29/2024 3:05 PM COMPARISON: Chest radiographs from 09/25/2024, CT chest 09/24/2024 TECHNIQUE: XR chest 1V portable Portable AP radiograph of the chest. CLINICAL INDICATION:Male, 74 years old with history of shortness of breath; FINDINGS: Lungs/Pleura: No pleural effusion or pneumothorax. Left basilar patchy airspace opacities. Pulmonary vascularity: Unremarkable. Heart/mediastinum: Cardiomediastinal silhouette is enlarged and stable. Musculoskeletal: No acute osseous pathology. IMPRESSION: Left basilar patchy airspace opacities concerning for pneumonia versus atelectasis versus sequelae of recent biopsy. [facility], , 09/29/2024 3:09 PM
--- NOTE | 2024-10-02 10:20 | CDI ---
Documentation Clarification Form Date: 10/02/2024 10:09:36 AM From: Norma Sellers RN, CCDS Email: [email or web address] Admit Date: 09/25/2024 10:23:00 PM Patient Name: Guzman Medellin Visit Number: [id number] Discharge Date: 09/29/2024 03:48:00 PM ATTENTION: The Clinical Documentation Specialists (CDI) and [facility] Coding Staff appreciate your assistance in clarifying documentation. Please respond to the clarification below the line at the bottom and electronically sign. The CDI & [facility] Coding staff will review the response and follow-up if needed. Please note: Queries are made part of the Legal Health Record. If you have any questions, please contact the author of this message via ITS. Doctor Nicolás Saul The patient had tachycardia, elevated temperature and tachypnea. Based on this information and the findings below, is there an additional diagnosis that is clinically appropriate for this patient? History/Risk Factors: ESRD on dialysis, HTN. Presented with N/V/D. Admitted with RSV infection and fluid overload. Clinical Indicators: 09/25 ED: "Cardiovascular Exam: Present: tachycardia, irregular rhythm." 09/26 Pulmonary: "Acute fluid overload secondary to chronic kidney disease, patient may need hemodialysis today." 09/26 H&P: "Acute RSV infection. Acute hypoxic respiratory failure. Lactic acidosis." 09/28 IM: "Acute RSV infection. Acute hypoxic respiratory failure due to fluid overload and RSV infection." 09/25 Lactic acid: 3.4-2.0 09/25 Labs: PT/INR/PTT 20.1/2.0/40.1; K+ 5.2; Cr 9.87; BNP [id number]; RSV detected; Hgb 5.2 09/25 Vital signs: Temp 100.9 HR 107 RR 22 BP 177/97 pox 90% RA Treatment: Hemodialysis 09/28; Acetaminophen 650 mg po Q6H prn for fever 09/25-09/29; A/A QID 09/26-09/28; Medrol Dose Pack 09/26-09/29; 2 units PRBC's (09/25 and 09/26) Is there an additional diagnosis that is clinically appropriate for this patient? [ x] Mild Viral Sepsis due to RSV infection, present on admission [ ] Non-infectious SIRS from fluid overload causing lactic acidosis [ ] No additional diagnosis/not clinically significant [ ] Other, please specify [ ] Unable to determine SIRS Criteria: 2 or more of the following may indicate SIRS Temperature < 96.8F (36C) or > 101.0F (38.3C) Heart Rate > 90 bpm Respiratory Rate > 20 breaths/min or PaCO2 < 32 mmHg White Blood Cell Count > 12,000 or < 4,000 cells/mm3 or > 10% bands MTDD
== END 2024-09-29 15:48 | disposition home or self-care (01) | DRG 871 ==
LOC: EC 19:02 → 3SCARD 22:23
PROVIDERS: ADMIT Hospitalist; ATTEND Hospitalist
PROC: 30233N1 Transfusion of Nonautologous Red Blood Cells into Peripheral Vein, Percutaneous Approach (ICD-10-PCS; principal; 2024-09-25)
PROC: 5A1D70Z Performance of Urinary Filtration, Intermittent, Less than 6 Hours Per Day (ICD-10-PCS; 2024-09-26)
DX: A41.89 Other specified sepsis (principal); J96.01 Acute respiratory failure with hypoxia; N18.6 End stage renal disease; E87.20 Acidosis, unspecified; D62 Acute posthemorrhagic anemia; D63.1 Anemia in chronic kidney disease; E83.9 Disorder of mineral metabolism, unspecified; I12.0 Hypertensive chronic kidney disease with stage 5 chronic kidney disease or end stage renal disease; C64.9 Malignant neoplasm of unspecified kidney, except renal pelvis; Z99.2 Dependence on renal dialysis; I48.20 Chronic atrial fibrillation, unspecified; E87.70 Fluid overload, unspecified; B97.4 Respiratory syncytial virus as the cause of diseases classified elsewhere; R11.2 Nausea with vomiting, unspecified; R19.7 Diarrhea, unspecified; R91.1 Solitary pulmonary nodule; G89.29 Other chronic pain; E87.5 Hyperkalemia; K21.9 Gastro-esophageal reflux disease without esophagitis; G47.30 Sleep apnea, unspecified; F41.9 Anxiety disorder, unspecified; I25.2 Old myocardial infarction; Z79.01 Long term (current) use of anticoagulants; Z79.899 Other long term (current) drug therapy; Z87.442 Personal history of urinary calculi; Z89.022 Acquired absence of left finger(s); Z20.822 Contact with and (suspected) exposure to COVID-19; Z28.21 Immunization not carried out because of patient refusal; Z88.5 Allergy status to narcotic agent
CPT/HCPCS: 36415; 36430; 71045; 71046; 80048; 80053; 81001; 82150; 82272; 82607; 82746; 83010; 83540; 83550; 83605; 83615; 83690; 83735; 83880; 85025; 85027; 85045; 85610; 85730; 86706; 86850; 86900; 86901; 86920; 87340; 87636; 90935; 94640; 96374; 96376; 99285

== ENCOUNTER 2024-10-01 18:29 | Inpatient (IN) | payer MEDICARE, BC ==
[2024-10-01 19:02] LABS: Basophils # (A) 0.04 10*3/uL (0.00-0.10); Basophils % (A) 0.2 %; Eosinophils # (A) 0.13 10*3/uL (0.04-0.35); Eosinophils % (A) 0.8 %; HCT 39.8 % (39.6-50.0); HGB 13.1 g/dL (13.0-17.0); Lymphocytes % (A) 3.6 %; MCH 28.1 pg (27.0-32.0); MCHC 32.9 g/dL (32.0-37.0); MCV 85.2 fL (80.0-97.0); Mean Platelet Volume 10.7 fL (9.5-12.2); Monocytes # (A) 1.12 10*3/uL (0.20-1.00); Monocytes % (A) 6.8 %; Neutrophils # (A) 14.51 10*3/uL (1.80-7.70); Platelet Count 199 10*3/uL (140-440); RBC 4.67 10*6/uL (4.40-5.60); RDW 17.2 % (11.5-14.5)
[2024-10-01 19:12] LABS: INR 1.8 (<1.2); Partial Thromboplastin Time 39.1 sec (22.0-30.0); Prothrombin Time 18.1 sec (10.0-12.5)
[2024-10-01] MEDS: AZITHROMYCIN 500 MG in SODIUM CHLORIDE 0.9% 250 ML IVPB STA (19:12)
[2024-10-01 19:21] LABS: ALT 23 U/L (4-49); AST 17 U/L (17-59); African American GFR (CKD) 7 (>60 ml/min/1.73 sqM); Albumin 3.8 g/dL (3.5-5.0); Alkaline Phosphatase 79 U/L (38-126); Anion Gap 17 mmol/L; Blood Urea Nitrogen 47 mg/dL (9-20); Carbon Dioxide 26 mmol/L (22-30); Chloride 92 mmol/L (98-107); Glucose 101 mg/dL (74-99); Non-African American GFR(CKD) 6 (>60 ml/min/1.73 sqM); Potassium 4.1 mmol/L (3.5-5.1); Sodium 135 mmol/L (137-145); Total Bilirubin 2.2 mg/dL (0.2-1.3); Total Protein 7.2 g/dL (6.3-8.2)
[2024-10-01] MEDS: ALBUTEROL NEBULIZED 2.5 MG/3 ML INHALATION STA (19:47)
[2024-10-01] MEDS: ALBUTEROL NEBULIZED 2.5 MG/3 ML INHALATION SCH (19:47)
[2024-10-01] MEDS: IPRATROPIUM 0.5 MG/2.5 ML NEBU INHALATION STA (19:48)
--- NOTE | 2024-10-01 19:56 | XR ---
EXAMINATION TYPE: XR chest 1V portable DATE OF EXAM: 10/01/2024 7:27 PM COMPARISON: 09/29/2024 CLINICAL INDICATION: Male, 74 years old with history of shortness of breath, TECHNIQUE: XR chest 1V portable view(s) obtained. FINDINGS: The heart size is normal. The pulmonary vasculature is normal. Nodular type densities in the periphery of the left lung present previously. Mild infiltrate is in th e left lower lobe. IMPRESSION: 1. Left lower lobe infiltrate. Correlate for pneumonia. 2. Underlying left lung mass [facility], Workstation: [facility], 10/01/2024 7:54 PM
--- NOTE | 2024-10-01 20:30 | ED ---
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 History provided by patient and daughter. They state the patient was recently admitted to the hospital last week and diagnosed with RSV. He was discharged home on Saturday. Over the last 2 days he has had progressively worsening shortness of breath. He does live at home with his daughter and today patient's daughter found him having periods where he would appeared to have stopped breathing for about "10 seconds" and then resume breathing again while he was sleeping. He had 1 such episode where he went "unresponsive" but continued breathing throughout. At this point patient's daughter called 911. On their arrival patient was awake and alert and able to ambulate out to the stretcher. Patient currently denies any chest pain or abdominal pain. Endorses shortness of breath. Did have an episode of emesis morning that was nonbloody nonbilious. Was discharged home on methylprednisolone. Does not wear oxygen at home. Missed dialysis last Saturday but has not missed dialysis since then. Patient's daughter denies fevers over the last 2 days. Patient endorses chills. Is on coumadin 2/2 hx a fib. - Related Data Home Medications Medication Instructions Recorded Confirmed Warfarin [Coumadin] 3.75 mg PO DAILY 10/31/20 10/01/24 FLUoxetine HCL [PROzac] 20 mg PO DAILY 12/07/21 10/01/24 Gabapentin [Neurontin] 100 mg PO DAILY 12/07/21 10/01/24 amLODIPine [Norvasc] 10 mg PO DAILY 09/23/24 10/01/24 Calcium Acetate [PhosLo] 667 mg PO DAILY 09/26/24 10/01/24 carvediloL [Coreg] 12.5 mg PO BID 09/26/24 10/01/24 hydrALAZINE HCL [Apresoline] 100 mg PO DAILY 09/26/24 10/01/24 Previous Rx's Medication Instructions Recorded methylPREDNISolone Dose Pack See Taper PO DAILY #3 tab 09/29/24 [Medrol Dose Pack] Allergies Allergy/AdvReac Type Severity Reaction Status Date / Time codeine AdvReac Itching Verified 09/26/24 09:23 Review of Systems ROS Statement: Those systems with pertinent positive or pertinent negative responses have been documented in the HPI. ROS Other: All systems not noted in ROS Statement are negative. 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 KIDNEY STONES. Does not use CPAP. 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 Back surgery x 2 for pinched sciatic nerve. Rt foot bone spur removed. RT HAND PLATE SCREWS. KIDNEY STONE REMOVAL Past Anesthesia/Blood Transfusion Reactions: No Reported Reaction Type of Cardiac Device: Loop Device Placement Date:: 2021 Past Psychological History: Anxiety Smoking Status: Never smoker Past Alcohol Use History: None Reported Past Drug Use History: None Reported - Past Family History Father Family Medical History: Cancer, Prostate Disorder Additional Family Medical History / Comment(s): PROSTATE CANCER, Mother Family Medical History: Cancer Additional Family Medical History / Comment(s): CANCER IN LYMPH NODE Sister(s) Family Medical History: Cancer Additional Family Medical History / Comment(s): OVARIAN CANCER General Exam - General Exam Comments Initial Comments: PE: CONSTITUTIONAL: Mild distress, tachypneic, ill-appearing, nontoxic SKIN: Warm, dry, no jaundice, hives or petechiae EYES: Pupils are equally round, extraocular movements intact without nystagmus, clear conjunctiva, non-icteric sclera HENT: Normocephalic, atraumatic, moist mucus membranes, oropharynx clear without exudates NECK: , Full range of motion, normal appearance PULMONARY: Wheezes throughout all lung elias, rhonchi and rales in the left lower lung field, normal excursion no neon light installer muscle use or 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 No appreciated murmurs, rubs or gallops. Strong radial pulses with intact distal perfusion. No lower extremity edema GASTROINTESTINAL: Soft, active bowel sounds throughout, non-tender, non- distended, no palpable masses, no rebound or guarding. No hepatosplenomegaly MUSCULOSKELETAL: Extremities have no gross deformity, no edema, redness, or swelling. NEUROLOGIC:_a/o x 3, GCS 15, normal mentation and speech. Moves all extremities x 4 without motor or sensory deficit PSYCHIATRIC:_normal mood and affect, thought process is clear and linear Limitations: no limitations Course Vital Signs 10/01/24 10/01/24 10/01/24 18:35 18:39 19:19 Temperature 98.4 F Pulse Rate 96 101 H Pulse Rate [ Digital Tech ] Respiratory 18 20 Rate Blood Pressure 165/90 165/90 Blood Pressure [Right Arm] O2 Sat by Pulse 92 L 97 Oximetry 10/01/24 10/01/24 10/01/24 19:50 20:01 20:20 Temperature 99.5 F Pulse Rate 101 H 98 101 H Pulse Rate [ Digital Tech ] Respiratory 20 Rate Blood Pressure 144/84 Blood Pressure [Right Arm] O2 Sat by Pulse 97 Oximetry 10/01/24 10/01/24 10/02/24 21:36 23:43 02:00 Temperature 97.8 F Pulse Rate 101 H Pulse Rate [ 98 87 Digital Tech ] Respiratory 20 24 24 Rate Blood Pressure 151/89 Blood Pressure 146/93 [Right Arm] O2 Sat by Pulse 95 97 Oximetry 10/02/24 10/02/24 10/02/24 02:30 02:31 02:41 Temperature Pulse Rate 101 H 101 H Pulse Rate [ Digital Tech ] Respiratory Rate Blood Pressure Blood Pressure [Right Arm] O2 Sat by Pulse 97 Oximetry 10/02/24 10/02/24 10/02/24 03:44 06:41 07:49 Temperature 98.4 F Pulse Rate 98 Pulse Rate [ 87 98 Digital Tech ] Respiratory 24 18 Rate Blood Pressure Blood Pressure 149/100 132/89 [Right Arm] O2 Sat by Pulse 98 98 Oximetry 10/02/24 10/02/24 10/02/24 08:01 08:09 09:34 Temperature 97.7 F Pulse Rate 94 106 H 89 Pulse Rate [ Digital Tech ] Respiratory 24 Rate Blood Pressure 123/81 Blood Pressure [Right Arm] O2 Sat by Pulse 97 Oximetry EKG Findings - EKG Comments: EKG Findings:: Atrial fibrillation, rate 87 bpm QT/QTc 378/422, left axis deviation, T wave inversion V3 through V5, no significant ST elevations or depressions,Compared to EKG performed on 09/25/2024, T wave inversions are new from prior, no significant new ST elevations or depressions from prior Medical Decision Making - Medical Decision Making Was pt. sent in by a medical professional or institution (, PA, [employer], urgent care, hospital, or long-term...) When possible be specific @ -No Did you speak to anyone other than the patient for history (EMS, parent, family, police, friend...)? What history was obtained from this source @ -I spoke with patient's daughter who assisted in providing history, states that she brought patient in today due to periods of what appeared to be apnea and then an episode of unresponsiveness, during which patient did continue dylon athing Did you review nursing and triage notes (agree or disagree)? Why? @ -I reviewed nursing and triage notes Were old charts reviewed (outside hosp., previous admission, EMS record, old EKG, old radiological studies, urgent care reports/EKG's, long-term records)? Report findings @ -Medical records reviewedpatient was admitted here 09/25/2023, reviewed progress note from 09/29/2024, it appears patient had a bronchoscopy done on 09/24/2024, had come in for nausea, vomiting cough, per this progress note patient reportedly had hemoglobin of 5.2 and a BNP of 1 2 1000, with prominent vasculature on chest x-ray. Additionally reviewed chest x-ray done on 09/29/2024, did not appear to show a left lower lung infiltrate at that time Differential Diagnosis (chest pain, altered mental status, abdominal pain women, abdominal pain men, vaginal bleeding, weakness, fever, dyspnea, syncope, headache, dizziness, GI bleed, back pain, seizure, CVA, palpatations, mental health, musculoskeletal)? @ -Differential Dyspnea: Coronary syndrome, arrhythmia, tamponade, asthma, COPD, pulmonary embolism, pneumonia, pneumothorax, pulmonary effusion, anaphylaxis, diabetic ketoacidosis, flailed chest, pulmonary contusion, diaphragmatic rupture, anemia, neuromuscular, this is not meant to be an all-inclusive list. EKG interpreted by me (3pts min.). @ -As above X-rays interpreted by me (1pt min.). @Personally reviewed chest x-ray, appears to show cardiomegaly and left lower lobe infiltrate that appears to be worsened from chest x-ray done on 09/29/2024 CT interpreted by me (1pt min.). @ -None done U/S interpreted by me (1pt. min.). @ -None done What testing was considered but not performed or refused? (CT, X-rays, U/S, labs)? Why? @ -CT chest w/ contrast was considered however pt reportedly does have residual kidney function and is still able to produce urine, is anticoagulated on coumadin without missed dosages, at this point I feel risk of worsening what little kidney function the patient has outweighs potential benefit What meds were considered but not given or refused? Why? @ -None Did you discuss the management of the patient with other professionals (professionals i.e. , PA, [employer], lab, RT, psych nurse, secondary social studies teacher, copy and print associate, teacher, aviation ordnance officer, telehealth case manager)? Give summary @ -No Was smoking cessation discussed for >3mins.? @ -No Was critical care preformed (if so, how long)? Yes, 35 minutes Were there social determinants of health that impacted care today? How? (Homelessness, low income, unemployed, alcoholism, drug addiction, transportation, low edu. Level, literacy, decrease access to med. care, alf, rehab)? @ -No Was there de-escalation of care discussed even if they declined (Discuss DNR or withdrawal of care, Hospice)? @ -No What co-morbidities impacted this encounter? (DM, HTN, Smoking, COPD, CAD, Cancer, CVA, ARF, Chemo, Hep., AIDS, mental health diagnosis, sleep apnea, morbid obesity)? ESRD on dialysis, atrial fibrillation on Coumadin, hypertension Was patient admitted / discharged? Hospital course, mention meds given and route, prescriptions, significant lab abnormalities, going to OR and other pertinent info. @Admission-this is a 74-year-old gentleman past medical history as above presenting today for shortness of breath and episodes of apnea at home 2 days after being discharged from the hospital after diagnosis of RSV. On my assessment patient is mildly tachypneic, diffuse wheezes throughout both lung elias with rhonchi in the left lower lung field. He arrives on oxygen by nasal cannula, with oxygen removed pulse ox was down to 91% on room air. 2 L oxygen reapplied. Prior to arrival he received 125 mg Solu-Medrol by EMS and a nebulizer treatment. Will plan for chest x-ray, nebulizer treatments, antibiotics, troponin, CBC, CMP, anticipate admission. Labs significant for mild leukocytosis, WBC count 16.5, with RR 20 and mild tachycardia pt does meet SIRS criteria. Blood culture and lactic was added. Antibiotics given. Pt will receive small 500 cc fluid bolus so as to avoid fluid overload in pt w/ ESRD. On reassessment patient's respirations are improved, breath sounds are improved. Chest x-ray shows left lower lobe pneumonia new from prior. Updated pt to findings an anticipated admission. Troponin 0.044. I suspect this is secondary to demand ischemia patient currently denies chest pain. At this time we will hold on heparinization. Plan for admission for pneumonia, acute hypoxic respiratory failure. Case discussed with JADA Arzate kindly accepts patient for admission. Undiagnosed new problem with uncertain prognosis? @ -No Drug Therapy requiring intensive monitoring for toxicity (Heparin, Nitro, Insulin, Cardizem)? @ -No Were any procedures done? @ -No Diagnosis/symptom? @Acute hypoxic respiratory failure, hospital-acquired pneumonia, elevated troponin Acute, or Chronic, or Acute on Chronic? Acute Uncomplicated (without systemic symptoms) or Complicated (systemic symptoms)? @Complicated Side effects of treatment? @ -No Exacerbation, Progression, or Severe Exacerbation? @ -No Poses a threat to life or bodily function? How? (Chest pain, USA, MD, pneumonia, PE, COPD, DKA, ARF, appy, cholecystitis, CVA, Diverticulitis, Homicidal, Suicidal, threat to staff... and all critical care pts) @ -Yes if left untreated could progress to sepsis/septic shock - Lab Data Result diagrams: 10/02/24 06:01 10/02/24 06:01 Lab Results 10/01/24 10/01/24 10/01/24 Range/Units 18:50 18:50 18:50 WBC 16.50 H (4.50-10.00) 10*3/uL RBC 4.67 (4.40-5.60) 10*6/uL Hgb 13.1 (13.0-17.0) g/dL Hct 39.8 (39.6-50.0) % MCV 85.2 (80.0-97.0) fL MCH 28.1 (27.0-32.0) pg MCHC 32.9 (32.0-37.0) g/dL Plt Count 199 (140-440) 10*3/uL MPV 10.7 (9.5-12.2) fL Immature Gran % (Auto) 0.6 % Neutrophils % 88.0 % Lymphocytes % 3.6 % Monocytes % 6.8 % Eosinophils % 0.8 % Basophils % 0.2 % Immature Gran # 0.10 H (0.00-0.04) 10*3/uL Neutrophils # 14.51 H (1.80-7.70) 10*3/uL Lymphocytes # 0.60 L (0.90-5.00) 10*3/uL Monocytes # 1.12 H (0.20-1.00) 10*3/uL Eosinophils # 0.13 (0.04-0.35) 10*3/uL Basophils # 0.04 (0.00-0.10) 10*3/uL PT 18.1 H (10.0-12.5) sec INR 1.8 H (<1.2) APTT 39.1 H (22.0-30.0) sec Sodium 135 L (137-145) mmol/L Potassium 4.1 (3.5-5.1) mmol/L Chloride 92 L (98-107) mmol/L Carbon Dioxide 26 (22-30) mmol/L Anion Gap 17 mmol/L BUN 47 H (9-20) mg/dL Creatinine 8.32 H* (0.66-1.25) mg/dL Est GFR (CKD-EPI)AfAm 7 (>60 ml/min/1.73 sqM) Est GFR (CKD-EPI)NonAf 6 (>60 ml/min/1.73 sqM) Glucose 101 H (74-99) mg/dL Calcium 9.0 (8.4-10.2) mg/dL Total Bilirubin 2.2 H (0.2-1.3) mg/dL AST 17 (17-59) U/L ALT 23 (4-49) U/L Alkaline Phosphatase 79 (38-126) U/L Troponin I (0.000-0.034) ng/mL C-Reactive Protein (<1.0) mg/dL Total Protein 7.2 (6.3-8.2) g/dL Albumin 3.8 (3.5-5.0) g/dL 10/01/24 10/01/24 Range/Units 18:50 18:50 WBC (4.50-10.00) 10*3/uL RBC (4.40-5.60) 10*6/uL Hgb (13.0-17.0) g/dL Hct (39.6-50.0) % MCV (80.0-97.0) fL MCH (27.0-32.0) pg MCHC (32.0-37.0) g/dL Plt Count (140-440) 10*3/uL MPV (9.5-12.2) fL Immature Gran % (Auto) % Neutrophils % % Lymphocytes % % Monocytes % % Eosinophils % % Basophils % % Immature Gran # (0.00-0.04) 10*3/uL Neutrophils # (1.80-7.70) 10*3/uL Lymphocytes # (0.90-5.00) 10*3/uL Monocytes # (0.20-1.00) 10*3/uL Eosinophils # (0.04-0.35) 10*3/uL Basophils # (0.00-0.10) 10*3/uL PT (10.0-12.5) sec INR (<1.2) APTT (22.0-30.0) sec Sodium (137-145) mmol/L Potassium (3.5-5.1) mmol/L Chloride (98-107) mmol/L Carbon Dioxide (22-30) mmol/L Anion Gap mmol/L BUN (9-20) mg/dL Creatinine (0.66-1.25) mg/dL Est GFR (CKD-EPI)AfAm (>60 ml/min/1.73 sqM) Est GFR (CKD-EPI)NonAf (>60 ml/min/1.73 sqM) Glucose (74-99) mg/dL Calcium (8.4-10.2) mg/dL Total Bilirubin (0.2-1.3) mg/dL AST (17-59) U/L ALT (4-49) U/L Alkaline Phosphatase (38-126) U/L Troponin I 0.044 H* (0.000-0.034) ng/mL C-Reactive Protein 17.0 H (<1.0) mg/dL Total Protein (6.3-8.2) g/dL Albumin (3.5-5.0) g/dL Disposition Clinical Impression: Hospital-acquired pneumonia, Acute hypoxic respiratory failure, Sepsis Disposition: ADMITTED IP TO THIS HOSP Condition: Stable
[2024-10-01] MEDS ORDERED: VANCOMYCIN IV PER PHARMACY 1 EACH MISC MISCELLANE PRN (20:37)
[2024-10-01] MEDS ORDERED: PNEUMONIA PROTOCOL UTILIZED 1 EACH MISC PO PRN (20:37)
[2024-10-01] MEDS: VANCOMYCIN 1,500 MG in SODIUM CHLORIDE 0.9% 500 ML 500 ML IVPB ONE (21:33)
[2024-10-01] MEDS: SODIUM CHLORIDE 0.9% 500 ML 500 ML IV ONE (21:34)
[2024-10-01] MEDS: ASPIRIN 81 MG PO STA (21:35)
[2024-10-01] MEDS: IPRATROPIUM-ALBUTEROL 3 ML NEB INHALATION STA (23:37)
[2024-10-01] MEDS: WARFARIN 5 MG TAB PO ONE (23:55)
[2024-10-01] MEDS: WARFARIN 5 MG TAB PO SCH (23:56)
[2024-10-01] MEDS: PIPERACILLIN-TAZOBACTAM 3.375 GM in SODIUM CHLORIDE 0.9% 100 ML IVPB SCH (23:58)
[2024-10-02] MEDS: IPRATROPIUM-ALBUTEROL 3 ML NEB INHALATION PRN (02:28)
[2024-10-02] MEDS: carvediloL 12.5 MG TAB PO SCH (06:41)
[2024-10-02 06:43] LABS: MCH 27.5 pg (27.0-32.0); MCHC 32.4 g/dL (32.0-37.0); MCV 84.7 fL (80.0-97.0); Mean Platelet Volume 10.6 fL (9.5-12.2); Platelet Count 185 10*3/uL (140-440); RBC 4.37 10*6/uL (4.40-5.60); RDW 16.9 % (11.5-14.5); WBC 13.35 10*3/uL (4.50-10.00)
[2024-10-02 07:06] LABS: African American GFR (CKD) 6 (>60 ml/min/1.73 sqM); Anion Gap 17 mmol/L; Blood Urea Nitrogen 55 mg/dL (9-20); Calcium 8.7 mg/dL (8.4-10.2); Carbon Dioxide 22 mmol/L (22-30); Chloride 96 mmol/L (98-107); Glucose 150 mg/dL (74-99); Non-African American GFR(CKD) 5 (>60 ml/min/1.73 sqM); Potassium 4.1 mmol/L (3.5-5.1); Sodium 135 mmol/L (137-145)
[2024-10-02 07:08] LABS: INR 1.9 (<1.2); Prothrombin Time 19.6 sec (10.0-12.5)
[2024-10-02] MEDS: IPRATROPIUM-ALBUTEROL 3 ML NEB INHALATION SCH (07:49)
--- NOTE | 2024-10-02 08:15 | XR ---
EXAMINATION TYPE: XR chest 1V portable DATE OF EXAM: 10/02/2024 5:38 AM COMPARISON: Multiple radiographs, with the most recent on 10/01/2024 TECHNIQUE: XR chest 1V portable Portable AP radiograph of the chest. CLINICAL INDICATION:Male, 74 years old with history of pneumonia; FINDINGS: Lungs/Pleura: No pleural effusion or pneumothorax. Left basilar patchy airspace opacities redemonstra julio. Pulmonary vascularity: Unremarkable. Heart/mediastinum: Cardiomediastinal silhouette is enlarged and stable. Musculoskeletal: No acute osseous pathology. Other findings: Loop recorder overlies the left chest. IMPRESSION: Left basilar patchy airspace opacities redemonstrated. This is concerning for pneumonia/atelectasis v ersus sequela of recent biopsy of known lingular nodule. [facility], , 10/02/2024 8:12 AM
[2024-10-02] MEDS ORDERED: WARFARIN 5 MG TAB PO SCH (09:00)
[2024-10-02] MEDS: amLODIPine 10 MG TAB PO SCH (09:43)
[2024-10-02] MEDS: FLUoxetine HCL 20 MG CAP PO SCH (09:44)
[2024-10-02] MEDS: CALCIUM ACETATE 667 MG TAB PO SCH (09:44)
[2024-10-02] MEDS: hydrALAZINE HCL 50 MG TAB PO SCH (09:44)
[2024-10-02] MEDS: GABAPENTIN 100 MG CAP PO SCH (09:44)
[2024-10-02] MEDS: BENZONATATE 100 MG CAP PO PRN (09:45)
--- NOTE | 2024-10-02 10:17 | P.NPCON ---
History of Present Illness - Reason for Consult end stage renal disease - History of Present Illness Reason for consultation: End-stage renal disease History of present illness: Patient is a 74-year-old male seen in renal consultation for end-stage renal disease. Patient was seen and examined in the emergency room. He is maintained on hemodialysis on Saturday schedule. He did complete hemodialysis on Saturday. Patient was recently admitted at this facility and was discharged earlier this week. Patient is being worked up for malignancy. He has history of renal cell carcinoma and is also lung mass. Additionally he also had acute RSV infection. Patient states since he got home he has been developing worsening shortness of breath and also has a productive cough with yellow phlegm. He denies fever. He did vomit once yesterday. No diarrhea. No chest pain. He denies history of diabetes or coronary artery disease. Vital signs are stable. General: No acute distress. HEENT: Head exam is unremarkable. On nasal cannula. LUNGS: Scattered rhonchi. HEART: Rate and Rhythm are regular. ABDOMEN: Nontender. EXTREMITITES: No edema. 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 KIDNEY STONES. Does not use CPAP. 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 Back surgery x 2 for pinched sciatic nerve. Rt foot bone spur removed. RT HAND PLATE SCREWS. KIDNEY STONE REMOVAL Past Anesthesia/Blood Transfusion Reactions: No Reported Reaction Type of Cardiac Device: Loop Device Placement Date:: 2021 Past Psychological History: Anxiety Smoking Status: Never smoker Past Alcohol Use History: None Reported Past Drug Use History: None Reported - Past Family History Father Family Medical History: Cancer, Prostate Disorder Additional Family Medical History / Comment(s): PROSTATE CANCER, Mother Family Medical History: Cancer Additional Family Medical History / Comment(s): CANCER IN LYMPH NODE Sister(s) Family Medical History: Cancer Additional Family Medical History / Comment(s): OVARIAN CANCER Medications and Allergies Home Medications Medication Instructions Recorded Confirmed Type Warfarin [Coumadin] 3.75 mg PO DAILY 10/31/20 10/01/24 History FLUoxetine HCL [PROzac] 20 mg PO DAILY 12/07/21 10/01/24 History Gabapentin [Neurontin] 100 mg PO DAILY 12/07/21 10/01/24 History amLODIPine [Norvasc] 10 mg PO DAILY 09/23/24 10/01/24 History Calcium Acetate [PhosLo] 667 mg PO DAILY 09/26/24 10/01/24 History carvediloL [Coreg] 12.5 mg PO BID 09/26/24 10/01/24 History hydrALAZINE HCL [Apresoline] 100 mg PO DAILY 09/26/24 10/01/24 History methylPREDNISolone Dose Pack See Taper PO DAILY #3 tab 09/29/24 10/01/24 Rx [Medrol Dose Pack] Allergies Allergy/AdvReac Type Severity Reaction Status Date / Time codeine AdvReac Itching Verified 09/26/24 09:23 Physical Exam Vitals: Vital Signs Temp Pulse Pulse Resp BP BP Pulse Ox 10/02/24 09:34 97.7 F 89 24 123/81 97 10/02/24 08:09 106 H 10/02/24 08:01 94 10/02/24 07:49 98 10/02/24 06:41 98 18 132/89 98 10/02/24 03:44 98.4 F 87 24 149/100 98 10/02/24 02:41 101 H 10/02/24 02:31 97 10/02/24 02:30 101 H 10/02/24 02:00 87 24 10/01/24 23:43 97.8 F 98 24 146/93 97 10/01/24 21:36 101 H 20 151/89 95 10/01/24 20:20 99.5 F 101 H 20 144/84 97 10/01/24 20:01 98 10/01/24 19:50 101 H 10/01/24 19:19 101 H 20 165/90 97 10/01/24 18:39 165/90 10/01/24 18:35 98.4 F 96 18 92 L Intake and Output 10/01/24 10/02/24 10/02/24 22:59 06:59 14:59 Intake Total 350 Output Total 0 Balance 350 Intake: IV 10 KVO 10 Intake, IV Titration 100 Amount Piperacillin-Tazobactam 3 100 .375 gm In Sodium Chloride 0.9% 100 ml @ 25 mls/hr IVPB Q8HR [facility] Rx# :[id number] Oral 240 Output: Urine 0 Other: Weight 83.915 kg 83.915 kg Results - Lab Results Most recent lab results Calcium 8.7 mg/dL (8.4-10.2) 10/02/24 06:01 10/02/24 06:01 10/02/24 06:01 Assessment and Plan Plan: Assessment: 1. End-stage renal disease maintained on hemodialysis on Saturday y schedule. 2. Acute hypoxic respiratory failure. 3. Recent RSV infection. 4. Renal cell carcinoma with lung mass. Bronchoscopy done September 24, 2024. 5. Hypertension with chronic kidney disease. 6. Chronic kidney disease mineral bone disease maintained on PhosLo. Plan: Hemodialysis today. Thank you for the consultation. I will continue to follow the patient with you during his hospital stay.
--- NOTE | 2024-10-02 11:35 | P.CNPUL ---
History of Present Illness Consult date: 10/02/24 Requesting physician: Jonathan Jones Reason for consult: dyspnea, cough, COPD, hypoxemia, lung mass Chief complaint: Weakness, shortness of breath. History of present illness: Pulmonary consult dated October 02, 2024. 74-year-old male who was recently inpatient, between September 25, and September 29. The patient underwent bronchoscopy, by my partner, on September 24, for a lingular lesion, measuring 11 x 11 mm. Pathology, was negative. The patient comes to the emergency department, on October 01, complaining of shortness of breath, and weakness. The patient has a history of renal cell cancer, with suspected metastasis, to the left lung. He also has a history of end-stage renal disease. On his last admission, he tested positive for RSV. The patient is not able to give much of the history, because he is short of breath, and coughing quite a bit. Apparently his daughter noted that he was short of breath, and also noted that maybe he did stop breathing for a period of time. Anyway, EMS was called, and he came into the emergency department to be evaluated. We saw him this morning, in room 22, in the emergency department. The patient was currently on 2 L of oxygen. He is getting saline at 10 cc an hour. He was started on Zosyn empirically. Laboratory data includes a white count of 13.4, hemoglobin 12, hematocrit 37, and a platelet count of 185,000. PT was 19.6 with an INR of 1.9. Sodium 135, potassium 4.1, chloride 96, CO2 22, anion gap 17, BUN 55, and creatinine 9.19. Calcium was 8.7. Troponins were 0.044, 0.045, and 0.045. Procalcitonin level was 2.45. Chest x-ray suggested a possible left lower lobe infiltrate or mass. Repeat chest x-ray again demonstrates a left-sided, primarily lower lobe infiltrate. Review of Systems REVIEW OF SYSTEMS: CONSTITUTIONAL: Weakness. NEUROLOGIC: [ Negative.] HEENT: [ Negative.] CARDIAC: [Negative.] PULMONARY: Shortness of breath, cough. GI: [Negative.] : [Negative.] RHEUMATOLOGIC: [ Negative.] IMMUNOLOGIC: [ Negative.] ENDOCRINE: [Negative. 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 KIDNEY STONES. Does not use CPAP. 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 Back surgery x 2 for pinched sciatic nerve. Rt foot bone spur removed. RT HAND PLATE SCREWS. KIDNEY STONE REMOVAL Past Anesthesia/Blood Transfusion Reactions: No Reported Reaction Type of Cardiac Device: Loop Device Placement Date:: 2021 Past Psychological History: Anxiety Smoking Status: Never smoker Past Alcohol Use History: None Reported Past Drug Use History: None Reported - Past Family History Father Family Medical History: Cancer, Prostate Disorder Additional Family Medical History / Comment(s): PROSTATE CANCER, Mother Family Medical History: Cancer Additional Family Medical History / Comment(s): CANCER IN LYMPH NODE Sister(s) Family Medical History: Cancer Additional Family Medical History / Comment(s): OVARIAN CANCER Medications and Allergies Home Medications Medication Instructions Recorded Confirmed Type Warfarin [Coumadin] 3.75 mg PO DAILY 10/31/20 10/01/24 History FLUoxetine HCL [PROzac] 20 mg PO DAILY 12/07/21 10/01/24 History Gabapentin [Neurontin] 100 mg PO DAILY 12/07/21 10/01/24 History amLODIPine [Norvasc] 10 mg PO DAILY 09/23/24 10/01/24 History Calcium Acetate [PhosLo] 667 mg PO DAILY 09/26/24 10/01/24 History carvediloL [Coreg] 12.5 mg PO BID 09/26/24 10/01/24 History hydrALAZINE HCL [Apresoline] 100 mg PO DAILY 09/26/24 10/01/24 History methylPREDNISolone Dose Pack See Taper PO DAILY #3 tab 09/29/24 10/01/24 Rx [Medrol Dose Pack] Allergies Allergy/AdvReac Type Severity Reaction Status Date / Time codeine AdvReac Itching Verified 09/26/24 09:23 Physical Exam Osteopathic Statement: *. No significant issues noted on an osteopathic structural exam other than those noted in the History and Physical/Consult. Vitals: Vital Signs Temp Pulse Pulse Resp BP BP Pulse Ox 10/02/24 10:33 76 20 126/82 95 10/02/24 09:34 97.7 F 89 24 123/81 97 10/02/24 08:09 106 H 10/02/24 08:01 94 10/02/24 07:49 98 10/02/24 06:41 98 18 132/89 98 10/02/24 03:44 98.4 F 87 24 149/100 98 10/02/24 02:41 101 H 10/02/24 02:31 97 10/02/24 02:30 101 H 10/02/24 02:00 87 24 10/01/24 23:43 97.8 F 98 24 146/93 97 10/01/24 21:36 101 H 20 151/89 95 10/01/24 20:20 99.5 F 101 H 20 144/84 97 10/01/24 20:01 98 10/01/24 19:50 101 H 10/01/24 19:19 101 H 20 165/90 97 10/01/24 18:39 165/90 10/01/24 18:35 98.4 F 96 18 92 L Intake and Output 10/01/24 10/02/24 10/02/24 22:59 06:59 14:59 Intake Total 350 Output Total 0 Balance 350 Intake: IV 10 KVO 10 Intake, IV Titration 100 Amount Piperacillin-Tazobactam 3 100 .375 gm In Sodium Chloride 0.9% 100 ml @ 25 mls/hr IVPB Q8HR [facility] Rx# :[id number] Oral 240 Output: Urine 0 Other: Weight 83.915 kg 83.915 kg No acute distress, oriented 3. Frequent cough. Cough is wet and congested sounding. 2 L saturation is 95%. HEENT examination is grossly unremarkable. Mucous membranes are moist. No oral lesions. Neck supple. Full range of motion. No adenopathy thyromegaly or neck vein distention. Cardiovascular examination reveals regular rhythm rate. S1-S2 normal. No S3 or S4. No discernible murmur noted. Lungs reveal scattered bilateral rhonchi. Occasional wheezes. No crackles. Breath sounds equal bilaterally. Abdomen soft bowel sounds are heard. No masses or tenderness. Extremities are intact. No cyanosis clubbing or edema. Skin is without rash or lesion. Neurologic examination is brief but nonfocal. Results - Laboratory Findings CBC and BMP: 10/02/24 06:01 10/02/24 06:01 PT/INR, D-dimer PT 19.6 sec (10.0-12.5) H 10/02/24 06:01 INR 1.9 (<1.2) H 10/02/24 06:01 Abnormal lab findings: Abnormal Labs 10/01/24 10/01/24 10/01/24 18:50 18:50 18:50 WBC 16.50 H RBC Hgb Hct Immature Gran # 0.10 H Neutrophils # 14.51 H Lymphocytes # 0.60 L Monocytes # 1.12 H PT 18.1 H INR 1.8 H APTT 39.1 H Sodium 135 L Chloride 92 L BUN 47 H Creatinine 8.32 H* Glucose 101 H Total Bilirubin 2.2 H Troponin I C-Reactive Protein Procalcitonin 10/01/24 10/01/24 10/01/24 18:50 18:50 22:09 WBC RBC Hgb Hct Immature Gran # Neutrophils # Lymphocytes # Monocytes # PT INR APTT Sodium Chloride BUN Creatinine Glucose Total Bilirubin Troponin I 0.044 H* 0.045 H* C-Reactive Protein 17.0 H Procalcitonin 10/02/24 10/02/24 10/02/24 01:32 06:01 06:01 WBC 13.35 H RBC 4.37 L Hgb 12.0 L Hct 37.0 L Immature Gran # Neutrophils # Lymphocytes # Monocytes # PT 19.6 H INR 1.9 H APTT Sodium Chloride BUN Creatinine Glucose Total Bilirubin Troponin I 0.045 H* C-Reactive Protein Procalcitonin 10/02/24 10/02/24 06:01 06:01 WBC RBC Hgb Hct Immature Gran # Neutrophils # Lymphocytes # Monocytes # PT INR APTT Sodium 135 L Chloride 96 L BUN 55 H Creatinine 9.19 H* Glucose 150 H Total Bilirubin Troponin I C-Reactive Protein Procalcitonin 2.45 H - Diagnostic Findings Chest x-ray: image reviewed Assessment and Plan Assessment: Shortness of breath, possibly secondary to left lower lobe pneumonia. Recent history of RSV infection, with hospitalization between September 25 through September 29. Recent robotic bronchoscopy, September 24, for an 11 x 11 mm lesion, in the lingula. Pathology was negative. History of end-stage renal disease, with 3 times a week hemodialysis. History of benign essential hypertension. History of chronic atrial fibrillation. History of renal cell carcinoma. Plan: Plan dated October 02, 2024. The patient was seen in the emergency department, room #22. The patient was on 2 L of oxygen. He was getting saline at 10 cc an hour. He was on Zosyn empirically. The pathology from the bronchoscopy on September 24, was negative. Labs, x-rays, and medications are reviewed. The patient came in primarily with weakness, cough, and shortness of breath. Chest x-ray suggested the possibility of a pneumonia, in the left lower lobe. We did order a procalcitonin level, and also an N-terminal proBNP. In addition, we ordered a viral screen on this nj tient. We will continue to follow the patient, make recommendations along the way. I believe Saturday is one of his regular dialysis days. Dictation was produced using [employer] dictation software. Please excuse any grammatical, word or spelling errors. Time with Patient: Greater than 30
[2024-10-02 13:16] LABS: Influenza A Not Detected (Not Detectd); Influenza B Not Detected (Not Detectd); RSV Detected (Not Detectd)
[2024-10-02 15:33] LABS: Hepatitis B Surface Antigen Nonreactive (Nonreactive)
[2024-10-02 18:04] LABS: Hepatitis B Surface AB- Quant 32.9 mIU/mL
[2024-10-02] MEDS: WARFARIN 2 MG TAB PO ONE (18:38)
[2024-10-02] MEDS: VANCOMYCIN 1,250 MG in SODIUM CHLORIDE 0.9% 250 ML IVPB ONE (18:48)
[2024-10-02] MEDS: AZITHROMYCIN 500 MG in SODIUM CHLORIDE 0.9% 250 ML IVPB SCH (21:02)
[2024-10-02] MEDS: ACETAMINOPHEN TAB 325 MG TAB PO PRN (21:03)
[2024-10-02] MEDS: PIPERACILLIN-TAZOBACTAM 3.375 GM in SODIUM CHLORIDE 0.9% 100 ML IVPB SCH (22:55)
--- NOTE | 2024-10-03 08:22 | P.HPIM ---
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 History provided by patient and daughter. They state the patient was recently admitted to the hospital last week and diagnosed with RSV. He was discharged home on Saturday. Over the last 2 days he has had progressively worsening shortness of breath. He does live at home with his daughter and today patient's daughter found him having periods where he would appeared to have stopped breathing for about "10 seconds" and then resume breathing again while he was sleeping. He had 1 such episode where he went "unresponsive" but continued breathing throughout. At this point patient's daughter called 911. On their arrival patient was awake and alert and able to ambulate out to the stretcher. Patient currently denies any chest pain or abdominal pain. Endorses shortness of breath. Did have an episode of emesis morning that was nonbloody nonbilious. Was discharged home on methylprednisolone. Does not wear oxygen at home. Missed dialysis last Saturday but has not missed dialysis since then. Patient's daughter denies fevers over the last 2 days. Patient endorses chills. Is on coumadin 2/2 hx a fib. Blood work completed in ED reveals a WBC of 13.5, hemoglobin of 12 and platelet count of 185, sodium 135, potassium 4.1, BUN/creatinine 55/9.19, blood glucose of 150, total bilirubin elevated at 2.2, troponin of 0.044 and CRP of 17 Chest x-ray, appears to show cardiomegaly and left lower lobe infiltrate that appears to be worsened from chest x-ray done on 09/29/2024 - Patient is being admitted with hospital-acquired pneumonia resulting in acute hypoxic respiratory failure and sepsis Review of Systems REVIEW OF SYSTEMS: CONSTITUTIONAL: No fever, no malaise, no fatigue. HEENT: No recent visual problems or hearing problems. Denied any sore throat. CARDIOVASCULAR: No chest pain, orthopnea, PND, no palpitations, no syncope. PULMONARY: No shortness of breath, no cough, no hemoptysis. GASTROINTESTINAL: No diarrhea, no nausea, no vomiting, no abdominal pain. NEUROLOGICAL: No headaches, no weakness, no numbness. HEMATOLOGICAL: Denies any bleeding or petechiae. GENITOURINARY: Denies any burning micturition, frequency, or urgency. MUSCULOSKELETAL/RHEUMATOLOGICAL: Denies any joint pain, swelling, or any muscle pain. ENDOCRINE: Denies any polyuria or polydipsia. The rest of the 14-point review of systems is negative. Past Medical History Past Medical History: Atrial Fibrillation, GERD/Reflux, Hypertension, Myocardial Infarction ([place]), Renal Disease, Sleep Apnea/CPAP/BIPAP Additional Past Medical History / Comment(s): "I have a spot on my lower lt lung."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 KIDNEY STONES. Does not use CPAP. 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 Back surgery x 2 for pinched sciatic nerve. Rt foot bone spur removed. RT HAND PLATE SCREWS. KIDNEY STONE REMOVAL Past Anesthesia/Blood Transfusion Reactions: No Reported Reaction Type of Cardiac Device: Loop Device Placement Date:: 2021 Past Psychological History: Anxiety Smoking Status: Never smoker Past Alcohol Use History: None Reported Past Drug Use History: None Reported - Past Family History Father Family Medical History: Cancer, Prostate Disorder Additional Family Medical History / Comment(s): PROSTATE CANCER, Mother Family Medical History: Cancer Additional Family Medical History / Comment(s): CANCER IN LYMPH NODE Sister(s) Family Medical History: Cancer Additional Family Medical History / Comment(s): OVARIAN CANCER Medications and Allergies Home Medications Medication Instructions Recorded Confirmed Type Warfarin [Coumadin] 3.75 mg PO DAILY 10/31/20 10/01/24 History FLUoxetine HCL [PROzac] 20 mg PO DAILY 12/07/21 10/01/24 History Gabapentin [Neurontin] 100 mg PO DAILY 12/07/21 10/01/24 History amLODIPine [Norvasc] 10 mg PO DAILY 09/23/24 10/01/24 History Calcium Acetate [PhosLo] 667 mg PO DAILY 09/26/24 10/01/24 History carvediloL [Coreg] 12.5 mg PO BID 09/26/24 10/01/24 History hydrALAZINE HCL [Apresoline] 100 mg PO DAILY 09/26/24 10/01/24 History methylPREDNISolone Dose Pack See Taper PO DAILY #3 tab 09/29/24 10/01/24 Rx [Medrol Dose Pack] Allergies Allergy/AdvReac Type Severity Reaction Status Date / Time codeine AdvReac Itching Verified 09/26/24 09:23 Physical Exam Vitals: Vital Signs Temp Pulse Pulse Resp BP BP Pulse Ox 10/02/24 10:33 76 20 126/82 95 10/02/24 09:34 97.7 F 89 24 123/81 97 10/02/24 08:09 106 H 10/02/24 08:01 94 10/02/24 07:49 98 10/02/24 06:41 98 18 132/89 98 10/02/24 03:44 98.4 F 87 24 149/100 98 10/02/24 02:41 101 H 10/02/24 02:31 97 10/02/24 02:30 101 H 10/02/24 02:00 87 24 10/01/24 23:43 97.8 F 98 24 146/93 97 10/01/24 21:36 101 H 20 151/89 95 10/01/24 20:20 99.5 F 101 H 20 144/84 97 10/01/24 20:01 98 10/01/24 19:50 101 H 10/01/24 19:19 101 H 20 165/90 97 10/01/24 18:39 165/90 10/01/24 18:35 98.4 F 96 18 92 L Intake and Output 10/01/24 10/02/24 10/02/24 22:59 06:59 14:59 Intake Total 350 Output Total 0 Balance 350 Intake: IV 10 KVO 10 Intake, IV Titration 100 Amount Piperacillin-Tazobactam 3 100 .375 gm In Sodium Chloride 0.9% 100 ml @ 25 mls/hr IVPB Q8HR COUNTS INCLUDE 234 BEDS AT THE [facility] Rx# :[id number] Oral 240 Output: Urine 0 Other: Weight 83.915 kg 83.915 kg CONSTITUTIONAL: Mild distress, tachypneic, ill-appearing, nontoxic SKIN: Warm, dry, no jaundice, hives or petechiae EYES: Pupils are equally round, extraocular movements intact without nystagmus, clear conjunctiva, non-icteric sclera HENT: Normocephalic, atraumatic, moist mucus membranes, oropharynx clear without exudates NECK: , Full range of motion, normal appearance PULMONARY: Wheezes throughout all lung elias, rhonchi and rales in the left lower lung field, normal excursion no nurses educator muscle use or 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 No appreciated murmurs, rubs or gallops. Strong radial pulses with intact distal perfusion. No lower extremity edema GASTROINTESTINAL: Soft, active bowel sounds throughout, non-tender, non- distended, no palpable masses, no rebound or guarding. No hepatosplenomegaly MUSCULOSKELETAL: Extremities have no gross deformity, no edema, redness, or swelling. NEUROLOGIC:_a/o x 3, GCS 15, normal mentation and speech. Moves all extremities x 4 without motor or sensory deficit PSYCHIATRIC:_normal mood and affect, thought process is clear and linear Results CBC & Chem 7: 10/02/24 06:01 10/02/24 06:01 Labs: Abnormal Lab Results - Last 24 Hours (Table) 10/01/24 10/01/24 10/01/24 Range/Units 18:50 18:50 18:50 WBC 16.50 H (4.50-10.00) 10*3/uL RBC (4.40-5.60) 10*6/uL Hgb (13.0-17.0) g/dL Hct (39.6-50.0) % Immature Gran # 0.10 H (0.00-0.04) 10*3/uL Neutrophils # 14.51 H (1.80-7.70) 10*3/uL Lymphocytes # 0.60 L (0.90-5.00) 10*3/uL Monocytes # 1.12 H (0.20-1.00) 10*3/uL PT 18.1 H (10.0-12.5) sec INR 1.8 H (<1.2) APTT 39.1 H (22.0-30.0) sec Sodium 135 L (137-145) mmol/L Chloride 92 L (98-107) mmol/L BUN 47 H (9-20) mg/dL Creatinine 8.32 H* (0.66-1.25) mg/dL Glucose 101 H (74-99) mg/dL Total Bilirubin 2.2 H (0.2-1.3) mg/dL Troponin I (0.000-0.034) ng/mL C-Reactive Protein (<1.0) mg/dL Procalcitonin (0.02-0.50) ng/mL 10/01/24 10/01/24 10/01/24 Range/Units 18:50 18:50 22:09 WBC (4.50-10.00) 10*3/uL RBC (4.40-5.60) 10*6/uL Hgb (13.0-17.0) g/dL Hct (39.6-50.0) % Immature Gran # (0.00-0.04) 10*3/uL Neutrophils # (1.80-7.70) 10*3/uL Lymphocytes # (0.90-5.00) 10*3/uL Monocytes # (0.20-1.00) 10*3/uL PT (10.0-12.5) sec INR (<1.2) APTT (22.0-30.0) sec Sodium (137-145) mmol/L Chloride (98-107) mmol/L BUN (9-20) mg/dL Creatinine (0.66-1.25) mg/dL Glucose (74-99) mg/dL Total Bilirubin (0.2-1.3) mg/dL Troponin I 0.044 H* 0.045 H* (0.000-0.034) ng/mL C-Reactive Protein 17.0 H (<1.0) mg/dL Procalcitonin (0.02-0.50) ng/mL 10/02/24 10/02/24 10/02/24 Range/Units 01:32 06:01 06:01 WBC 13.35 H (4.50-10.00) 10*3/uL RBC 4.37 L (4.40-5.60) 10*6/uL Hgb 12.0 L (13.0-17.0) g/dL Hct 37.0 L (39.6-50.0) % Immature Gran # (0.00-0.04) 10*3/uL Neutrophils # (1.80-7.70) 10*3/uL Lymphocytes # (0.90-5.00) 10*3/uL Monocytes # (0.20-1.00) 10*3/uL PT 19.6 H (10.0-12.5) sec INR 1.9 H (<1.2) APTT (22.0-30.0) sec Sodium (137-145) mmol/L Chloride (98-107) mmol/L BUN (9-20) mg/dL Creatinine (0.66-1.25) mg/dL Glucose (74-99) mg/dL Total Bilirubin (0.2-1.3) mg/dL Troponin I 0.045 H* (0.000-0.034) ng/mL C-Reactive Protein (<1.0) mg/dL Procalcitonin (0.02-0.50) ng/mL 10/02/24 10/02/24 Range/Units 06:01 06:01 WBC (4.50-10.00) 10*3/uL RBC (4.40-5.60) 10*6/uL Hgb (13.0-17.0) g/dL Hct (39.6-50.0) % Immature Gran # (0.00-0.04) 10*3/uL Neutrophils # (1.80-7.70) 10*3/uL Lymphocytes # (0.90-5.00) 10*3/uL Monocytes # (0.20-1.00) 10*3/uL PT (10.0-12.5) sec INR (<1.2) APTT (22.0-30.0) sec Sodium 135 L (137-145) mmol/L Chloride 96 L (98-107) mmol/L BUN 55 H (9-20) mg/dL Creatinine 9.19 H* (0.66-1.25) mg/dL Glucose 150 H (74-99) mg/dL Total Bilirubin (0.2-1.3) mg/dL Troponin I (0.000-0.034) ng/mL C-Reactive Protein (<1.0) mg/dL Procalcitonin 2.45 H (0.02-0.50) ng/mL Thrombosis Risk Factor Assmnt - Choose All That Apply Any of the Below Risk Factors Present?: Yes Each Factor Represents 1 point: Obesity (BMI >25), Serious lung disease incl. pneumonia (< 1month) Thrombosis Risk Factor Assessment Total Risk Factor Score: 2 Thrombosis Risk Factor Assessment Level: Low Risk Assessment and Plan Assessment: 1. Healthcare acquired pneumonia -Chest x-ray completed in ED reveals left lower lobe pneumonia; WBC is elevated at 13.3, procalcitonin of 2.45, CRP of 17 - Patient has been placed on IV antibiotics in form of Zosyn and azithromycin - Patient had bronchoscopy completed on 09/24/2024 which is negative for malignancy - Viral screen has been ordered 2. Recent history of acute viral infection with RSV; patient was hospitalized from 09/25/2024 till 09/29/2024 3. Lung lesion; patient underwent bronchoscopy on 09/24/2024 for 11 x 11 mm lesion in lingula; pathology has come back negative 4. End-stage renal disease/HD; patient has dialysis schedule of Saturday, Saturday and Saturday; nephrology has been consulted 5. Atrial fibrillation; chronic; patient is anticoagulated on Coumadin; rate controlled on Coreg 12.5 mg twice daily 6. Hypertension; amlodipine 10 mg daily, Coreg 12.5 mg twice daily, hydralazine 100 mg daily 7. History of renal cell carcinoma DVT prophylaxis; SCDs/Coumadin CODE STATUS; DNR
[2024-10-03 09:27] LABS: INR 2.2 (<1.2); Prothrombin Time 21.9 sec (10.0-12.5)
--- NOTE | 2024-10-03 09:51 | P.PN ---
Subjective Progress Note Date: 10/03/24 Principal diagnosis: Cough and shortness of breath. Pulmonary consult dated October 02, 2024. 74-year-old male who was recently inpatient, between September 25, and September 29. The patient underwent bronchoscopy, by my partner, on September 24, for a lingular lesion, measuring 11 x 11 mm. Pathology, was negative. The patient comes to the emergency department, on October 01, complaining of shortness of breath, and weakness. The patient has a history of renal cell cancer, with suspected metastasis, to the left lung. He also has a history of end-stage renal disease. On his last admission, he tested positive for RSV. The patient is not able to give much of the history, because he is short of breath, and coughing quite a bit. Apparently his daughter noted that he was short of breath, and also noted that maybe he did stop breathing for a period of time. Anyway, EMS was called, and he came into the emergency department to be evaluated. We saw him this morning, in room 22, in the emergency department. The patient was currently on 2 L of oxygen. He is getting saline at 10 cc an hour. He was started on Zosyn empirically. Laboratory data includes a white count of 13.4, hemoglobin 12, h ematocrit 37, and a platelet count of 185,000. PT was 19.6 with an INR of 1.9. Sodium 135, potassium 4.1, chloride 96, CO2 22, anion gap 17, BUN 55, and creatinine 9.19. Calcium was 8.7. Troponins were 0.044, 0.045, and 0.045. Procalcitonin level was 2.45. Chest x-ray suggested a possible left lower lobe infiltrate or mass. Repeat chest x-ray again demonstrates a left-sided, primarily lower lobe infiltrate. Progress note dated October 03, 2024. 74-year-old male readmitted with shortness of breath and cough. The patient was recently inpatient, following a bronchoscopy, for a lingular lesion. Pathology was negative. At that time, he tested positive for RSV. Currently he is seen in room 352. He is on room air. Saturations are 93%. His viral screen was again positive for RSV. His N-terminal proBNP was 185,000. Procalcitonin level was elevated 2.45. His currently on azithromycin, Zosyn, and vancomycin. He is feeling better today. Current laboratory data includes a PT of 21.9 and INR of 2.2. Labs from yesterday have been reviewed. Objective - Vital Signs Vital signs: Vital Signs Temp 98 F 10/03/24 04:50 Pulse 75 10/03/24 07:45 Resp 19 10/03/24 06:48 BP 129/80 10/03/24 06:48 Pulse Ox 93 L 10/03/24 07:35 FiO2 21 10/03/24 07:35 Intake & Output 10/02/24 10/03/24 10/03/24 18:59 06:59 18:59 Intake Total 400 560 180 Output Total 2600 Balance -2200 560 180 Weight 86.5 kg Intake: IV 20 Invasive Line 1 20 Oral 540 180 Hemodialysis 400 Output: Hemodialysis 1500 Hemodialysis Net Amount 1100 Other: # Bowel Movements 1 - Exam No acute distress, oriented 3. Frequent cough. Cough is wet and congested sounding. Currently on room air. HEENT examination is grossly unremarkable. Mucous membranes are moist. No oral lesions. Neck supple. Full range of motion. No adenopathy thyromegaly or neck vein distention. Cardiovascular examination reveals regular rhythm rate. S1-S2 normal. No S3 or S4. No discernible murmur noted. Lungs reveal scattered bilateral rhonchi. Occasional wheezes. No crackles. Breath sounds equal bilaterally. Abdomen soft bowel sounds are heard. No masses or tenderness. Extremities are intact. No cyanosis clubbing or edema. Skin is without rash or lesion. Neurologic examination is brief but nonfocal. - Labs CBC & Chem 7: 10/02/24 06:01 10/02/24 06:01 Labs: Abnormal Lab Results - Last 24 Hours (Table) 10/02/24 10/02/24 10/02/24 Range/Units 06:01 06:01 09:33 PT (10.0-12.5) sec INR (<1.2) Procalcitonin 2.45 H (0.02-0.50) ng/mL Hep Bs Antibody A (Negative) RSV (PCR) Detected A (Not Detectd) 10/03/24 Range/Units 08:41 PT 21.9 H (10.0-12.5) sec INR 2.2 H (<1.2) Procalcitonin (0.02-0.50) ng/mL Hep Bs Antibody (Negative) RSV (PCR) (Not Detectd) Microbiology - Last 24 Hours (Table) 10/02/24 04:45 Nasal Screen MRSA/MSSA - Final Nasal Swab Staphylococcus aureus,Not MRSA 10/01/24 20:55 Blood Culture - Preliminary Blood 10/02/24 04:45 Gram Stain - Preliminary Sputum Assessment and Plan Assessment: Shortness of breath, possibly secondary to left lower lobe pneumonia. Persistent viral screen positive for RSV. Recent history of RSV infection, with hospitalization between September 25 through September 29. Recent robotic bronchoscopy, September 24, for an 11 x 11 mm lesion, in the lingula. Pathology was negative. History of end-stage renal disease, with 3 times a week hemodialysis. History of benign essential hypertension. History of chronic atrial fibrillation. History of renal cell carcinoma. Plan: Plan dated October 02, 2024. The patient was seen in the emergency department, room #22. The patient was on 2 L of oxygen. He was getting saline at 10 cc an hour. He was on Zosyn empirically. The pathology from the bronchoscopy on September 24, was negative. Labs, x-rays, and medications are reviewed. The patient came in primarily with weakness, cough, and shortness of breath. Chest x-ray suggested the possibility of a pneumonia, in the left lower lobe. We did order a procalcitonin level, and also an N-terminal proBNP. In addition, we ordered a viral screen on this patient. We will continue to follow the patient, make recommendations along the way. I believe Saturday is one of his regular dialysis days. Dictation was pr oduced using [employer] software. Please excuse any grammatical, word or spelling errors. Plan dated October 03, 2024. The patient is seen today in room 352. He is actually on room air. The patient is currently on Zosyn. His N-terminal proBNP was elevated at 185,000. His procalcitonin level was elevated 2.45. His viral screen was again positive for RSV. He continues on azithromycin, Zosyn, and vancomycin. Labs, x-rays, and all medications are reviewed. Antibiotics should be consolidated or de- escalated. We will continue to follow the patient, make recommendations along the way. Clinically, the patient is a bit better today. Prognosis is guarded. Dictation was produced using [employer] software. Please excuse any grammatical, word or spelling errors. Time with Patient: Less than 30
--- NOTE | 2024-10-03 11:37 | P.PN ---
Subjective Patient is seen for follow-up for end-stage renal disease. Maintained on Saturday schedule. Status post dialysis yesterday with 1.1 L UF No significant shortness of breath. Resting comfortably. Objective - Vital Signs Vital signs: Vital Signs Temp 97.7 F 10/03/24 08:00 Pulse 68 10/03/24 11:26 Resp 18 10/03/24 08:00 BP 125/76 10/03/24 08:00 Pulse Ox 97 10/03/24 08:00 FiO2 21 10/03/24 07:35 Intake & Output 10/02/24 10/03/24 10/03/24 18:59 06:59 18:59 Intake Total 400 560 180 Output Total 2600 Balance -2200 560 180 Weight 86.5 kg Intake: IV 20 Invasive Line 1 20 Oral 540 180 Hemodialysis 400 Output: Hemodialysis 1500 Hemodialysis Net Amount 1100 Other: # Bowel Movements 1 - Exam Patient is awake, comfortable, no acute distress Examination of the heart S1 and S2 Examination of the lungs bilateral breath sounds are heard Abdomen is soft nontender Examination of lower extremity shows no significant edema ACTOR UNDERSTUDY exam grossly intact - Labs CBC & Chem 7: 10/02/24 06:01 10/02/24 06:01 Labs: Abnormal Lab Results - Last 24 Hours (Table) 10/02/24 10/02/24 10/03/24 Range/Units 06:01 09:33 08:41 PT 21.9 H (10.0-12.5) sec INR 2.2 H (<1.2) Hep Bs Antibody A (Negative) RSV (PCR) Detected A (Not Detectd) Microbiology - Last 24 Hours (Table) 10/02/24 04:45 Gram Stain - Preliminary Sputum Sputum Culture - Preliminary Presumptive Staph aureus 10/02/24 04:45 Nasal Screen MRSA/MSSA - Final Nasal Swab Staphylococcus aureus,Not MRSA 10/01/24 20:55 Blood Culture - Preliminary Blood Assessment and Plan Assessment: 1. End-stage renal disease maintained on hemodialysis on Saturday schedule. 2. Acute hypoxic respiratory failure, improved. Most likely from pneumonia 3. Recent RSV infection. 4. Renal cell carcinoma with lung mass. Bronchoscopy done September 24, 2024. 5. Hypertension with chronic kidney disease. 6. Chronic kidney disease mineral bone disease maintained on PhosLo. Plan: Maintain hemodialysis on Saturday schedule Continue with antibiotics for pneumonia
[2024-10-03] MEDS: VANCOMYCIN 1,250 MG in SODIUM CHLORIDE 0.9% 250 ML IVPB ONE (11:48)
--- NOTE | 2024-10-03 13:33 | P.PN ---
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 History provided by patient and daughter. They state the patient was recently admitted to the hospital last week and diagnosed with RSV. He was discharged home on Saturday. Over the last 2 days he has had progressively worsening shortness of breath. He does live at home with his daughter and today patient's daughter found him having periods where he would appeared to have stopped breathing for about "10 seconds" and then resume breathing again while he was sleeping. He had 1 such episode where he went "unresponsive" but continued breathing throughout. At this point patient's daughter called 911. On their arrival patient was awake and alert and able to ambulate out to the stretcher. Patient currently denies any chest pain or abdominal pain. Endorses shortness of breath. Did have an episode of emesis morning that was nonbloody nonbilious. Was discharged home on methylprednisolone. Does not wear oxygen at home. Missed dialysis last Saturday but has not missed dialysis since then. Patient's daughter denies fevers over the last 2 days. Patient endorses chills. Is on coumadin 2/2 hx a fib. Blood work completed in ED reveals a WBC of 13.5, hemoglobin of 12 and platelet count of 185, sodium 135, potassium 4.1, BUN/creatinine 55/9.19, blood glucose of 150, total bilirubin elevated at 2.2, troponin of 0.044 and CRP of 17 Chest x-ray, appears to show cardiomegaly and left lower lobe infiltrate that appears to be worsened from chest x-ray done on 09/29/2024 - Patient is being admitted with hospital-acquired pneumonia resulting in acute hypoxic respiratory failure and sepsis Objective - Vital Signs Vital signs: Vital Signs Temp 98 F 10/03/24 04:50 Pulse 75 10/03/24 07:45 Resp 19 10/03/24 06:48 BP 129/80 10/03/24 06:48 Pulse Ox 93 L 10/03/24 07:35 FiO2 21 10/03/24 07:35 Intake & Output 10/02/24 10/03/24 10/03/24 18:59 06:59 18:59 Intake Total 400 560 Output Total 2600 Balance -2200 560 Weight 86.5 kg Intake: IV 20 Invasive Line 1 20 Oral 540 Hemodialysis 400 Output: Hemodialysis 1500 Hemodialysis Net Amount 1100 Other: # Bowel Movements 1 - Exam CONSTITUTIONAL: Mild distress, tachypneic, ill-appearing, nontoxic SKIN: Warm, dry, no jaundice, hives or petechiae EYES: Pupils are equally round, extraocular movements intact without nystagmus, clear conjunctiva, non-icteric sclera HENT: Normocephalic, atraumatic, moist mucus membranes, oropharynx clear without exudates NECK: , Full range of motion, normal appearance PULMONARY: Wheezes throughout all lung elias, rhonchi and rales in the left lower lung field, normal excursion no manual writer muscle use or 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 No appreciated murmurs, rubs or gallops. Strong radial pulses with intact distal perfusion. No lower extremity edema GASTROINTESTINAL: Soft, active bowel sounds throughout, non-tender, non- distended, no palpable masses, no rebound or guarding. No hepatosplenomegaly MUSCULOSKELETAL: Extremities have no gross deformity, no edema, redness, or swelling. NEUROLOGIC:_a/o x 3, GCS 15, normal mentation and speech. Moves all extremities x 4 without motor or sensory deficit PSYCHIATRIC:_normal mood and affect, thought process is clear and linear - Labs CBC & Chem 7: 10/02/24 06:01 10/02/24 06:01 Labs: Abnormal Lab Results - Last 24 Hours (Table) 10/02/24 10/02/24 10/02/24 Range/Units 06:01 06:01 09:33 Procalcitonin 2.45 H (0.02-0.50) ng/mL Hep Bs Antibody A (Negative) RSV (PCR) Detected A (Not Detectd) Microbiology - Last 24 Hours (Table) 10/01/24 20:55 Blood Culture - Preliminary Blood 10/02/24 04:45 Gram Stain - Preliminary Sputum Assessment and Plan Assessment: 1. Healthcare acquired pneumonia -Chest x-ray completed in ED reveals left lower lobe pneumonia; WBC is elevated at 13.3, procalcitonin of 2.45, CRP of 17 - Patient has been placed on IV antibiotics in form of Zosyn and azithromycin - Patient had bronchoscopy completed on 09/24/2024 which is negative for malignancy - Viral screen has been ordered 2. Recent history of acute viral infection with RSV; patient was hospitalized from 09/25/2024 till 09/29/2024 3. Lung lesion; patient underwent bronchoscopy on 09/24/2024 for 11 x 11 mm lesion in lingula; pathology has come back negative 4. End-stage renal disease/HD; patient has dialysis schedule of Saturday, Saturday and Saturday; nephrology has been consulted 5. Atrial fibrillation; chronic; patient is anticoagulated on Coumadin; rate controlled on Coreg 12.5 mg twice daily 6. Hypertension; amlodipine 10 mg daily, Coreg 12.5 mg twice daily, hydralazine 100 mg daily 7. History of renal cell carcinoma DVT prophylaxis; SCDs/Coumadin CODE STATUS; DNR
[2024-10-03] MEDS: WARFARIN 3 MG TAB PO ONE (17:01)
[2024-10-04 07:05] LABS: Basophils # (A) 0.01 10*3/uL (0.00-0.10); Basophils % (A) 0.1 %; Eosinophils # (A) 0.01 10*3/uL (0.04-0.35); Eosinophils % (A) 0.1 %; HCT 35.9 % (39.6-50.0); HGB 12.1 g/dL (13.0-17.0); Lymphocytes # (A) 0.53 10*3/uL (0.90-5.00); Lymphocytes % (A) 3.2 %; MCH 28.2 pg (27.0-32.0); MCHC 33.7 g/dL (32.0-37.0); MCV 83.7 fL (80.0-97.0); Mean Platelet Volume 10.1 fL (9.5-12.2); Monocytes # (A) 1.39 10*3/uL (0.20-1.00); Monocytes % (A) 8.5 %; Neutrophils # (A) 14.33 10*3/uL (1.80-7.70); Neutrophils % (A) 87.5 %; Platelet Count 210 10*3/uL (140-440); RBC 4.29 10*6/uL (4.40-5.60); RDW 17.2 % (11.5-14.5); WBC 16.37 10*3/uL (4.50-10.00)
[2024-10-04 07:15] LABS: African American GFR (CKD) 7 (>60 ml/min/1.73 sqM); Anion Gap 15 mmol/L; Blood Urea Nitrogen 55 mg/dL (9-20); Calcium 8.6 mg/dL (8.4-10.2); Carbon Dioxide 23 mmol/L (22-30); Chloride 97 mmol/L (98-107); Glucose 88 mg/dL (74-99); Non-African American GFR(CKD) 6 (>60 ml/min/1.73 sqM); Potassium 3.7 mmol/L (3.5-5.1); Sodium 135 mmol/L (137-145)
[2024-10-04 07:20] LABS: Vancomycin,Random 28.1 ug/mL
[2024-10-04 07:25] LABS: INR 2.7 (<1.2)
--- NOTE | 2024-10-04 08:42 | P.PN ---
Subjective Progress Note Date: 10/04/24 Principal diagnosis: Cough and shortness of breath. Pulmonary consult dated October 02, 2024. 74-year-old male who was recently inpatient, between September 25, and September 29. The patient underwent bronchoscopy, by my partner, on September 24, for a lingular lesion, measuring 11 x 11 mm. Pathology, was negative. The patient comes to the emergency department, on October 01, complaining of shortness of breath, and weakness. The patient has a history of renal cell cancer, with suspected metastasis, to the left lung. He also has a history of end-stage renal disease. On his last admission, he tested positive for RSV. The patient is not able to give much of the history, because he is short of breath, and coughing quite a bit. Apparently his daughter noted that he was short of breath, and also noted that maybe he did stop breathing for a period of time. Anyway, EMS was called, and he came into the emergency department to be evaluated. We saw him this morning, in room 22, in the emergency department. The patient was currently on 2 L of oxygen. He is getting saline at 10 cc an hour. He was started on Zosyn empirically. Laboratory data includes a white count of 13.4, hemoglobin 12, h ematocrit 37, and a platelet count of 185,000. PT was 19.6 with an INR of 1.9. Sodium 135, potassium 4.1, chloride 96, CO2 22, anion gap 17, BUN 55, and creatinine 9.19. Calcium was 8.7. Troponins were 0.044, 0.045, and 0.045. Procalcitonin level was 2.45. Chest x-ray suggested a possible left lower lobe infiltrate or mass. Repeat chest x-ray again demonstrates a left-sided, primarily lower lobe infiltrate. Progress note dated October 03, 2024. 74-year-old male readmitted with shortness of breath and cough. The patient was recently inpatient, following a bronchoscopy, for a lingular lesion. Pathology was negative. At that time, he tested positive for RSV. Currently he is seen in room 352. He is on room air. Saturations are 93%. His viral screen was again positive for RSV. His N-terminal proBNP was 185,000. Procalcitonin level was elevated 2.45. His currently on azithromycin, Zosyn, and vancomycin. He is feeling better today. Current laboratory data includes a PT of 21.9 and INR of 2.2. Labs from yesterday have been reviewed. Progress note dated October 04, 2024. 74-year-old male seen again in room 352. He is currently on room air. He is getting saline at 5 cc an hour. He had hemodialysis on Saturday, October 02, and 1.1 L of fluid was removed. Clinically, he is doing better. He is weak. He states his cough is better. His breathing is improved. Current laboratory data includes a white count 16.4, hemoglobin 12.1, macro 35.9, and platelet count 210,000. PT was 27, INR 2.7. Sodium 135, potassium 3.7, chloride 97, CO2 23, anion gap 15, BUN 55, creatinine 7.63. Sputum sampling, was positive for presumptive Staph aureus. Precise identification, and sensitivities are pending. The patient is currently on vancomycin. Objective - Vital Signs Vital signs: Vital Signs Temp 98.9 F 10/04/24 04:05 Pulse 92 10/04/24 08:19 Resp 20 10/04/24 04:05 BP 124/75 10/04/24 06:45 Pulse Ox 91 L 10/04/24 08:07 FiO2 21 10/04/24 08:07 Intake & Output 10/03/24 10/04/24 10/04/24 18:59 06:59 18:59 Intake Total 540 500 Balance 540 500 Weight 88 kg Intake: IV 20 Invasive Line 1 20 Oral 540 480 Other: # Voids 0 # Bowel Movements 1 - Exam No acute distress, oriented 3. Frequent cough. Cough is wet and congested sounding. Currently on room air. HEENT examination is grossly unremarkable. Mucous membranes are moist. No oral lesions. Neck supple. Full range of motion. No adenopathy thyromegaly or neck vein distention. Cardiovascular examination reveals regular rhythm rate. S1-S2 normal. No S3 or S4. No discernible murmur noted. Lungs reveal scattered bilateral rhonchi. Occasional wheezes. No crackles. Breath sounds equal bilaterally. Abdomen soft bowel sounds are heard. No masses or tenderness. Extremities are intact. No cyanosis clubbing or edema. Skin is without rash or lesion. Neurologic examination is brief but nonfocal. - Labs CBC & Chem 7: 10/04/24 06:39 10/04/24 06:39 Labs: Abnormal Lab Results - Last 24 Hours (Table) 10/03/24 10/04/24 10/04/24 Range/Units 08:41 06:39 06:39 WBC (4.50-10.00) 10*3/uL RBC (4.40-5.60) 10*6/uL Hgb (13.0-17.0) g/dL Hct (39.6-50.0) % Immature Gran # (0.00-0.04) 10*3/uL Neutrophils # (1.80-7.70) 10*3/uL Lymphocytes # (0.90-5.00) 10*3/uL Monocytes # (0.20-1.00) 10*3/uL Eosinophils # (0.04-0.35) 10*3/uL PT 21.9 H 27.0 H (10.0-12.5) sec INR 2.2 H 2.7 H (<1.2) Sodium 135 L (137-145) mmol/L Chloride 97 L (98-107) mmol/L BUN 55 H (9-20) mg/dL Creatinine 7.63 H* (0.66-1.25) mg/dL 10/04/24 Range/Units 06:39 WBC 16.37 H (4.50-10.00) 10*3/uL RBC 4.29 L (4.40-5.60) 10*6/uL Hgb 12.1 L (13.0-17.0) g/dL Hct 35.9 L (39.6-50.0) % Immature Gran # 0.10 H (0.00-0.04) 10*3/uL Neutrophils # 14.33 H (1.80-7.70) 10*3/uL Lymphocytes # 0.53 L (0.90-5.00) 10*3/uL Monocytes # 1.39 H (0.20-1.00) 10*3/uL Eosinophils # 0.01 L (0.04-0.35) 10*3/uL PT (10.0-12.5) sec INR (<1.2) Sodium (137-145) mmol/L Chloride (98-107) mmol/L BUN (9-20) mg/dL Creatinine (0.66-1.25) mg/dL Microbiology - Last 24 Hours (Table) 10/01/24 20:55 Blood Culture - Preliminary Blood 10/02/24 04:45 Gram Stain - Preliminary Sputum Sputum Culture - Preliminary Presumptive Staph aureus 10/02/24 04:45 Nasal Screen MRSA/MSSA - Final Nasal Swab Staphylococcus aureus,Not MRSA Assessment and Plan Assessment: Shortness of breath, possibly secondary to left lower lobe pneumonia. Sputum positive for presumptive Staphylococcus aureus. Persistent viral screen positive for RSV. Recent history of RSV infection, with hospitalization between September 25 through September 29. Recent robotic bronchoscopy, September 24, for an 11 x 11 mm lesion, in the lingula. Pathology was negative. History of end-stage renal disease, with 3 times a week hemodialysis. History of benign essential hypertension. History of chronic atrial fibrillation. History of renal cell carcinoma. Plan: Plan dated October 02, 2024. The patient was seen in the emergency department, room #22. The patient was on 2 L of oxygen. He was getting saline at 10 cc an hour. He was on Zosyn empiri atilio. The pathology from the bronchoscopy on September 24, was negative. Labs, x- rays, and medications are reviewed. The patient came in primarily with weakness, cough, and shortness of breath. Chest x-ray suggested the possibility of a pneumonia, in the left lower lobe. We did order a procalcitonin level, and also an N-terminal proBNP. In addition, we ordered a viral screen on this patient. We will continue to follow the patient, make recommendations along the way. I believe Saturday is one of his regular dialysis days. Dictation was produced using [employer] dictation software. Please excuse any grammatical, word or spelling errors. Plan dated October 03, 2024. The patient is seen today in room 352. He is actually on room air. The patient is currently on Zosyn. His N-terminal proBNP was elevated at 185,000. His procalcitonin level was elevated 2.45. His viral screen was again positive for RSV. He continues on azithromycin, Zosyn, and vancomycin. Labs, x-rays, and all medications are reviewed. Antibiotics should be consolidated or de- escalated. We will continue to follow the patient, make recommendations along the way. Clinically, the patient is a bit better today. Prognosis is guarded. Dictation was produced using [employer] software. Please excuse any grammatical, word or spelling errors. Plan dated October 04, 2024. The patient is seen today in room 352. He seems to be resting more comfortably. He does feel weak. He is getting saline at 5 cc an hour. He is on room air. The patient had hemodialysis on October 02, where 1.1 L of fluid was removed. The patient sputum, is positive for presumptive Staph aureus. The patient is currently on vancomycin. His viral screen was positive again for RSV. Labs, x- rays, medications are reviewed. We will continue to follow make recommendations where appropriate. Prognosis is guarded. Dictation was produced using Mitro software. Please excuse any grammatical, word or spelling errors. Time with Patient: Less than 30
--- NOTE | 2024-10-04 10:05 | P.PN ---
Subjective Patient is seen for follow-up for end-stage renal disease. Maintained on Saturday schedule. Scheduled for dialysis in a.m. No significant shortness of breath. Resting comfortably. Objective - Vital Signs Vital signs: Vital Signs Temp 98.8 F 10/04/24 08:00 Pulse 92 10/04/24 08:19 Resp 16 10/04/24 08:00 BP 116/68 10/04/24 08:00 Pulse Ox 91 L 10/04/24 08:07 FiO2 21 10/04/24 08:07 Intake & Output 10/03/24 10/04/24 10/04/24 18:59 06:59 18:59 Intake Total 540 500 180 Balance 540 500 180 Weight 88 kg Intake: IV 20 Invasive Line 1 20 Oral 540 480 180 Other: # Voids 0 # Bowel Movements 1 - Exam Patient is awake, comfortable, no acute distress Examination of the heart S1 and S2 Examination of the lungs bilateral breath sounds are heard Abdomen is soft nontender Examination of lower extremity shows no significant edema DIRECTOR [employer] SALES exam grossly intact - Labs CBC & Chem 7: 10/04/24 06:39 10/04/24 06:39 Labs: Abnormal Lab Results - Last 24 Hours (Table) 10/04/24 10/04/24 10/04/24 Range/Units 06:39 06:39 06:39 WBC 16.37 H (4.50-10.00) 10*3/uL RBC 4.29 L (4.40-5.60) 10*6/uL Hgb 12.1 L (13.0-17.0) g/dL Hct 35.9 L (39.6-50.0) % Immature Gran # 0.10 H (0.00-0.04) 10*3/uL Neutrophils # 14.33 H (1.80-7.70) 10*3/uL Lymphocytes # 0.53 L (0.90-5.00) 10*3/uL Monocytes # 1.39 H (0.20-1.00) 10*3/uL Eosinophils # 0.01 L (0.04-0.35) 10*3/uL PT 27.0 H (10.0-12.5) sec INR 2.7 H (<1.2) Sodium 135 L (137-145) mmol/L Chloride 97 L (98-107) mmol/L BUN 55 H (9-20) mg/dL Creatinine 7.63 H* (0.66-1.25) mg/dL Microbiology - Last 24 Hours (Table) 10/02/24 04:45 Gram Stain - Final Sputum Sputum Culture - Final Staphylococcus aureus 10/01/24 20:55 Blood Culture - Preliminary Blood 10/02/24 04:45 Nasal Screen MRSA/MSSA - Final Nasal Swab Staphylococcus aureus,Not MRSA Assessment and Plan Assessment: 1. End-stage renal disease maintained on hemodialysis on Saturday schedule. 2. Acute hypoxic respiratory failure, improved. Most likely from pneumonia 3. Recent RSV infection. 4. Renal cell carcinoma with lung mass. Bronchoscopy done September 24, 2024. 5. Hypertension with chronic kidney disease. 6. Chronic kidney disease mineral bone disease maintained on PhosLo. Plan: Maintain hemodialysis on Saturday schedule Continue with antibiotics for pneumonia
[2024-10-04] MEDS: WARFARIN 1.5 MG TAB PO ONE (17:14)
--- NOTE | 2024-10-04 18:20 | P.PN ---
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 History provided by patient and daughter. They state the patient was recently admitted to the hospital last week and diagnosed with RSV. He was discharged home on Saturday. Over the last 2 days he has had progressively worsening shortness of breath. He does live at home with his daughter and today patient's daughter found him having periods where he would appeared to have stopped breathing for about "10 seconds" and then resume breathing again while he was sleeping. He had 1 such episode where he went "unresponsive" but continued breathing throughout. At this point patient's daughter called 911. On their arrival patient was awake and alert and able to ambulate out to the stretcher. Patient currently denies any chest pain or abdominal pain. Endorses shortness of breath. Did have an episode of emesis morning that was nonbloody nonbilious. Was discharged home on methylprednisolone. Does not wear oxygen at home. Missed dialysis last Saturday but has not missed dialysis since then. Patient's daughter denies fevers over the last 2 days. Patient endorses chills. Is on coumadin 2/2 hx a fib. Blood work completed in ED reveals a WBC of 13.5, hemoglobin of 12 and platelet count of 185, sodium 135, potassium 4.1, BUN/creatinine 55/9.19, blood glucose of 150, total bilirubin elevated at 2.2, troponin of 0.044 and CRP of 17 Chest x-ray, appears to show cardiomegaly and left lower lobe infiltrate that appears to be worsened from chest x-ray done on 09/29/2024 - Patient is being admitted with hospital-acquired pneumonia resulting in acute hypoxic respiratory failure and sepsis 10/04/2024 Patient seen and evaluated sitting up in bed; reports marked improvement in breathing; continues to complain of weakness when ambulating in the room -Patient is currently on room air. He is getting saline at 5 cc an hour. Patient underwent hemodialysis on Saturday, October 02, and 1.1 L of fluid was removed. Laboratory shows white count 16.4, hemoglobin 12.1, macro 35.9, and platelet count 210,000. PT was 27, INR 2.7. Sodium 135, potassium 3.7, chloride 97, CO2 23, anion gap 15, BUN 55, creatinine 7.63. Sputum sampling, was positive for presumptive Staph aureus. Precise identification, and sensitivities are pending. The patient is currently on vancomycin. Objective - Vital Signs Vital signs: Vital Signs Temp 98.9 F 10/04/24 04:05 Pulse 89 10/04/24 06:45 Resp 20 10/04/24 04:05 BP 124/75 10/04/24 06:45 Pulse Ox 98 10/04/24 04:05 FiO2 21 10/03/24 07:35 Intake & Output 10/03/24 10/04/24 10/04/24 18:59 06:59 18:59 Intake Total 540 500 Balance 540 500 Weight 88 kg Intake: IV 20 Invasive Line 1 20 Oral 540 480 Other: # Voids 0 # Bowel Movements 1 - Exam CONSTITUTIONAL: Mild distress, tachypneic, ill-appearing, nontoxic SKIN: Warm, dry, no jaundice, hives or petechiae EYES: Pupils are equally round, extraocular movements intact without nystagmus, clear conjunctiva, non-icteric sclera HENT: Normocephalic, atraumatic, moist mucus membranes, oropharynx clear without exudates NECK: , Full range of motion, normal appearance PULMONARY: Wheezes throughout all lung elias, rhonchi and rales in the left lower lung field, normal excursion no 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 No appreciated murmurs, rubs or gallops. Strong radial pulses with intact distal perfusion. No lower extremity edema GASTROINTESTINAL: Soft, active bowel sounds throughout, non-tender, non- distended, no palpable masses, no rebound or guarding. No hepatosplenomegaly MUSCULOSKELETAL: Extremities have no gross deformity, no edema, redness, or swelling. NEUROLOGIC:_a/o x 3, GCS 15, normal mentation and speech. Moves all extremities x 4 without motor or sensory deficit PSYCHIATRIC:_normal mood and affect, thought process is clear and linear - Labs CBC & Chem 7: 10/04/24 06:39 10/04/24 06:39 Labs: Abnormal Lab Results - Last 24 Hours (Table) 10/03/24 10/04/24 10/04/24 Range/Units 08:41 06:39 06:39 WBC (4.50-10.00) 10*3/uL RBC (4.40-5.60) 10*6/uL Hgb (13.0-17.0) g/dL Hct (39.6-50.0) % Immature Gran # (0.00-0.04) 10*3/uL Neutrophils # (1.80-7.70) 10*3/uL Lymphocytes # (0.90-5.00) 10*3/uL Monocytes # (0.20-1.00) 10*3/uL Eosinophils # (0.04-0.35) 10*3/uL PT 21.9 H 27.0 H (10.0-12.5) sec INR 2.2 H 2.7 H (<1.2) Sodium 135 L (137-145) mmol/L Chloride 97 L (98-107) mmol/L BUN 55 H (9-20) mg/dL Creatinine 7.63 H* (0.66-1.25) mg/dL 10/04/24 Range/Units 06:39 WBC 16.37 H (4.50-10.00) 10*3/uL RBC 4.29 L (4.40-5.60) 10*6/uL Hgb 12.1 L (13.0-17.0) g/dL Hct 35.9 L (39.6-50.0) % Immature Gran # 0.10 H (0.00-0.04) 10*3/uL Neutrophils # 14.33 H (1.80-7.70) 10*3/uL Lymphocytes # 0.53 L (0.90-5.00) 10*3/uL Monocytes # 1.39 H (0.20-1.00) 10*3/uL Eosinophils # 0.01 L (0.04-0.35) 10*3/uL PT (10.0-12.5) sec INR (<1.2) Sodium (137-145) mmol/L Chloride (98-107) mmol/L BUN (9-20) mg/dL Creatinine (0.66-1.25) mg/dL Microbiology - Last 24 Hours (Table) 10/01/24 20:55 Blood Culture - Preliminary Blood 10/02/24 04:45 Gram Stain - Preliminary Sputum Sputum Culture - Preliminary Presumptive Staph aureus 10/02/24 04:45 Nasal Screen MRSA/MSSA - Final Nasal Swab Staphylococcus aureus,Not MRSA Assessment and Plan Assessment: 1. Healthcare acquired pneumonia -Chest x-ray completed in ED reveals left lower lobe pneumonia; WBC is elevated at 13.3, procalcitonin of 2.45, CRP of 17 - Patient has been placed on IV antibiotics in form of Zosyn and azithromycin - Patient had bronchoscopy completed on 09/24/2024 which is negative for malignancy - Viral screen has been ordered 2. Recent history of acute viral infection with RSV; patient was hospitalized from 09/25/2024 till 09/29/2024 3. Lung lesion; patient underwent bronchoscopy on 09/24/2024 for 11 x 11 mm lesion in lingula; pathology has come back negative 4. End-stage renal disease/HD; patient has dialysis schedule of Saturday, Saturday and Saturday; nephrology has been consulted 5. Atrial fibrillation; chronic; patient is anticoagulated on Coumadin; rate controlled on Coreg 12.5 mg twice daily 6. Hypertension; amlodipine 10 mg daily, Coreg 12.5 mg twice daily, hydralazine 100 mg daily 7. History of renal cell carcinoma DVT prophylaxis; SCDs/Coumadin CODE STATUS; DNR
[2024-10-05 05:04] LABS: Basophils # (A) 0.02 10*3/uL (0.00-0.10); Basophils % (A) 0.2 %; Eosinophils # (A) 0.11 10*3/uL (0.04-0.35); Eosinophils % (A) 0.9 %; HCT 34.9 % (39.6-50.0); HGB 11.4 g/dL (13.0-17.0); Lymphocytes # (A) 0.89 10*3/uL (0.90-5.00); Lymphocytes % (A) 7.4 %; MCH 27.5 pg (27.0-32.0); MCHC 32.7 g/dL (32.0-37.0); MCV 84.3 fL (80.0-97.0); Monocytes # (A) 1.06 10*3/uL (0.20-1.00); Monocytes % (A) 8.8 %; Neutrophils # (A) 9.91 10*3/uL (1.80-7.70); Neutrophils % (A) 82.1 %; Platelet Count 173 10*3/uL (140-440); RBC 4.14 10*6/uL (4.40-5.60); RDW 17.6 % (11.5-14.5); WBC 12.06 10*3/uL (4.50-10.00)
[2024-10-05 05:09] LABS: INR 3.3 (<1.2); Prothrombin Time 32.9 sec (10.0-12.5)
[2024-10-05 05:54] LABS: African American GFR (CKD) 6 (>60 ml/min/1.73 sqM); Anion Gap 15 mmol/L; Blood Urea Nitrogen 65 mg/dL (9-20); Calcium 8.3 mg/dL (8.4-10.2); Carbon Dioxide 21 mmol/L (22-30); Chloride 98 mmol/L (98-107); Glucose 88 mg/dL (74-99); Non-African American GFR(CKD) 6 (>60 ml/min/1.73 sqM); Potassium 3.8 mmol/L (3.5-5.1); Sodium 134 mmol/L (137-145)
--- NOTE | 2024-10-05 12:07 | P.PN ---
Subjective Patient is seen for follow-up for end-stage renal disease. Maintained on Saturday schedule. Scheduled for dialysis today. No shortness of breath. Objective - Vital Signs Vital signs: Vital Signs Temp 97.5 F L 10/05/24 11:34 Pulse 67 10/05/24 11:34 Resp 20 10/05/24 11:34 BP 132/66 10/05/24 11:34 Pulse Ox 97 10/05/24 11:34 FiO2 21 10/04/24 08:07 Intake & Output 10/04/24 10/05/24 10/05/24 18:59 06:59 18:59 Intake Total 360 630 10 Balance 360 630 10 Weight 88.3 kg Intake: IV 30 10 Invasive Line 1 10 Invasive Line 3 20 10 Oral 360 600 Other: # Voids 0 - Exam Patient is awake, comfortable, no acute distress Examination of the heart S1 and S2 Examination of the lungs bilateral breath sounds are heard Abdomen is soft nontender Examination of lower extremity shows no significant edema 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 - Labs CBC & Chem 7: 10/05/24 04:48 10/05/24 04:48 Labs: Abnormal Lab Results - Last 24 Hours (Table) 10/05/24 10/05/24 10/05/24 Range/Units 04:48 04:48 04:48 WBC 12.06 H (4.50-10.00) 10*3/uL RBC 4.14 L (4.40-5.60) 10*6/uL Hgb 11.4 L (13.0-17.0) g/dL Hct 34.9 L (39.6-50.0) % Immature Gran # 0.07 H (0.00-0.04) 10*3/uL Neutrophils # 9.91 H (1.80-7.70) 10*3/uL Lymphocytes # 0.89 L (0.90-5.00) 10*3/uL Monocytes # 1.06 H (0.20-1.00) 10*3/uL PT 32.9 H (10.0-12.5) sec INR 3.3 H (<1.2) Sodium 134 L (137-145) mmol/L Carbon Dioxide 21 L (22-30) mmol/L BUN 65 H (9-20) mg/dL Creatinine 8.58 H* (0.66-1.25) mg/dL Calcium 8.3 L (8.4-10.2) mg/dL Microbiology - Last 24 Hours (Table) 10/01/24 20:55 Blood Culture - Preliminary Blood 10/02/24 04:45 Gram Stain - Final Sputum Sputum Culture - Final Staphylococcus aureus Assessment and Plan Assessment: 1. End-stage renal disease maintained on hemodialysis on Saturday schedule. 2. Acute hypoxic respiratory failure, improved. Most likely from pneumonia 3. Recent RSV infection. 4. Renal cell carcinoma with lung mass. Bronchoscopy done September 24, 2024. 5. Hypertension with chronic kidney disease. 6. Chronic kidney disease mineral bone disease maintained on PhosLo. Plan: Maintain hemodialysis on Saturday schedule Continue with antibiotics for pneumonia
--- NOTE | 2024-10-05 13:02 | CDI ---
Documentation Clarification Form Date: 10/05/2024 12:16:14 PM From: Ashley Greenfield RN CCDS Phone: [phone] Admit Date: 10/01/2024 08:39:00 PM Patient Name: Guzman Medellin Visit Number: [id number] Discharge Date: ATTENTION: The Clinical Documentation Specialists (CDI) and [facility] Coding Staff appreciate your assistance in clarifying documentation. Please respond to the clarification below the line at the bottom and electronically sign. The CDI & [facility] Coding staff will review the response and follow-up if needed. Please note: Queries are made part of the Legal Health Record. If you have any questions, please contact the author of this message via ITS. Doctor: [facility] acquired pneumonia is documented 10/02, [facility] through medicine note 10/04. Additional clarification regarding the type of pneumonia is requested. History/Risk Factors: 74 year old male presents to the ED with worsening shortness of breath. Medical history: ESRD on dialysis m/w/f, renal cell carcinoma, GERD, Atrial fibrillation and recent hospitalization with RSV. 10/02 Clinical Indicators: VSS, 10/01: B/P 165/90, HR 96, Temp 98.4 F Oral, RR 18, SpO2 92% ra Labs 10/01: Wbc 16.50, Neutrophils 14.51, Procalcitonin 2.45 CXR, 10/01: Left lower lobe infiltrate. Underlying left lung mass. Lung/Breathing assessment Sputum culture, 10/02: Staphylococcus aureus Treatment: Antibiotics: 10/01 Azithromycin IVPB x 1; 10/02 Azithromycin IVPB X 2 Bags, 10/01 Ceftriaxone IVPB x 1, 10/02 Zosyn IVPB x 1; 10/02 Zosyn IVPB Q12H, 10/01 Vancomycin IVPB x1; 10/03 Vancomycin IVPB x1, O2 2L nasal cannula Breathing Tx: 10/01 Ventolin Inhalation x 1; 10/01 Ventolin Inhalation x 2 doses, 10/01 Duoneb Inhalation Q4 PRN, 10/01 Duoneb Inhalation x 1; 10/02 Duoneb Inhalation qid millie Please clarify the type of pneumonia, if known: [ x ] Bacterial Pneumonia Due to Staph [ ] Other, please specify [ ] Unable to determine (Template Last Revised: July 2020) MTDD
--- NOTE | 2024-10-05 13:08 | P.PN ---
Subjective Progress Note Date: 10/05/24 On 10/05/2024, the patient is comfortable on room air oxygen. Denies having any specific complaints. No respiratory distress at this point. He is supposed to undergo hemodialysis today. He is on DuoNeb nebulizer treatments [id number]. He is on IV Zosyn. He remains on anticoagulation with warfar in. He remains on Coreg 12.5 mg p.o. twice a day and Norvasc 10 mg p.o. daily. Hemodynamically stable. White cell count at 12 with a hemoglobin 9.4 and a platelet count of 173. Sodium is at 134, BUN 65 with a creatinine of 8.5. Potassium levels are 3.8. The patient was seen by nephrology. Scheduled for hemodialysis today. No respiratory distress. The most recent chest x-ray from the time of admission on 10/02/2024 showed a left lower lobe opacity and some atelectatic changes in the lung bases. Objective - Vital Signs Vital signs: Vital Signs Temp 97.3 F L 10/05/24 08:27 Pulse 80 10/05/24 09:47 Resp 20 10/05/24 08:27 BP 117/74 10/05/24 08:27 Pulse Ox 97 10/05/24 09:37 FiO2 21 10/04/24 08:07 Intake & Output 10/04/24 10/05/24 10/05/24 18:59 06:59 18:59 Intake Total 360 630 Balance 360 630 Weight 88.3 kg Intake: IV 30 Invasive Line 1 10 Invasive Line 3 20 Oral 360 600 Other: # Voids 0 - Exam The patient appeared well nourished and normally developed. Vital signs as documented. Head exam is unremarkable. No scleral icterus or corneal arcus noted. Neck is without jugular venous distension, thyromegaly, or carotid bruits. Carotid upstrokes are brisk bilaterally. Lungs are clear to auscultation and percussion. Cardiac exam reveals the PMI to be normally sized and situated. Rhythm is regu lar. First and second heart sounds normal. No murmurs, rubs or gallops. Abdominal exam reveals normal bowel sounds, no masses, no organomegaly and no aortic enlargement. Extremities are nonedematous and both femoral and pedal pulses are normal. Examination of the skin revealed no evidence of significant rashes, suspicious appearing nevi or other concerning lesions. Neurologically, the patient is awake and alert and the patient does not have any focal neurological deficit. Cranial nerves are essentially intact. - Labs CBC & Chem 7: 10/05/24 04:48 10/05/24 04:48 Labs: Abnormal Lab Results - Last 24 Hours (Table) 10/05/24 10/05/24 10/05/24 Range/Units 04:48 04:48 04:48 WBC 12.06 H (4.50-10.00) 10*3/uL RBC 4.14 L (4.40-5.60) 10*6/uL Hgb 11.4 L (13.0-17.0) g/dL Hct 34.9 L (39.6-50.0) % Immature Gran # 0.07 H (0.00-0.04) 10*3/uL Neutrophils # 9.91 H (1.80-7.70) 10*3/uL Lymphocytes # 0.89 L (0.90-5.00) 10*3/uL Monocytes # 1.06 H (0.20-1.00) 10*3/uL PT 32.9 H (10.0-12.5) sec INR 3.3 H (<1.2) Sodium 134 L (137-145) mmol/L Carbon Dioxide 21 L (22-30) mmol/L BUN 65 H (9-20) mg/dL Creatinine 8.58 H* (0.66-1.25) mg/dL Calcium 8.3 L (8.4-10.2) mg/dL Microbiology - Last 24 Hours (Table) 10/01/24 20:55 Blood Culture - Preliminary Blood 10/02/24 04:45 Gram Stain - Final Sputum Sputum Culture - Final Staphylococcus aureus Assessment and Plan Plan: Acute on chronic shortness of breath, possibly secondary to left lower lobe pneumonia. Sputum Staph aureus pneumonia/MSSA post viral infection with RSV. The patient is improved and the patient is currently on room air oxygen. The patient is currently on IV Zosyn. Persistent viral screen positive for RSV. Recent history of RSV infection, with hospitalization between September 25 through September 29. Recent robotic bronchoscopy, September 24, for an 11 x 11 mm lesion, in the lingula. Pathology was negative. There was some atypical cells to suggest malignancy. This will be dealt with a later stage History of end-stage renal disease, with 3 times a week hemodialysis. History of benign essential hypertension. History of chronic atrial fibrillation. The patient's INR is at 3.3 History of renal cell carcinoma. Plan: Respiratory status is stable and the patient is currently on room air oxygen Continue IV Zosyn and transition patient to Augmentin at time of discharge Hemodialysis today Left lower lobe opacity was biopsied. Nondiagnostic for malignancy although there is an increase suspicion for cancer. This will be dealt at a later stage. Increase mobility Anticoagulation with warfarin, INR is at 3.3 today Nephrology follow-up Will continue to follow Time with Patient: Greater than 30
[2024-10-05] MEDS: LORazepam 0.5 MG TAB PO PRN (16:11)
[2024-10-05] MEDS: WARFARIN 0.5 MG TAB PO ONE (18:34)
[2024-10-05 19:46] VITALS: TEMP 98.5
[2024-10-05] MEDS: traMADol 50 MG TAB PO PRN (19:48)
[2024-10-06 06:38] LABS: Basophils # (A) 0.04 10*3/uL (0.00-0.10); Basophils % (A) 0.3 %; Eosinophils # (A) 0.12 10*3/uL (0.04-0.35); Eosinophils % (A) 0.9 %; HCT 34.8 % (39.6-50.0); HGB 11.6 g/dL (13.0-17.0); Lymphocytes # (A) 0.99 10*3/uL (0.90-5.00); Lymphocytes % (A) 7.3 %; MCH 28.4 pg (27.0-32.0); MCHC 33.3 g/dL (32.0-37.0); MCV 85.1 fL (80.0-97.0); Mean Platelet Volume 10.5 fL (9.5-12.2); Monocytes # (A) 1.23 10*3/uL (0.20-1.00); Monocytes % (A) 9.1 %; Neutrophils % (A) 81.7 %; Platelet Count 177 10*3/uL (140-440); RBC 4.09 10*6/uL (4.40-5.60); RDW 17.5 % (11.5-14.5); WBC 13.47 10*3/uL (4.50-10.00)
[2024-10-06 06:59] LABS: African American GFR (CKD) 10 (>60 ml/min/1.73 sqM); Anion Gap 13 mmol/L; Blood Urea Nitrogen 35 mg/dL (9-20); Carbon Dioxide 22 mmol/L (22-30); Chloride 96 mmol/L (98-107); Glucose 79 mg/dL (74-99); Non-African American GFR(CKD) 9 (>60 ml/min/1.73 sqM); Potassium 3.6 mmol/L (3.5-5.1); Sodium 131 mmol/L (137-145)
[2024-10-06 07:18] LABS: INR 4.5 (<1.2); Prothrombin Time 44.3 sec (10.0-12.5)
--- NOTE | 2024-10-06 10:39 | P.PN ---
Subjective Progress Note Date: 10/06/24 On 10/05/2024, the patient is comfortable on room air oxygen. Denies having any specific complaints. No respiratory distress at this point. He is supposed to undergo hemodialysis today. He is on DuoNeb nebulizer treatments [id number]. He is on IV Zosyn. He remains on anticoagulation with warfar in. He remains on Coreg 12.5 mg p.o. twice a day and Norvasc 10 mg p.o. daily. Hemodynamically stable. White cell count at 12 with a hemoglobin 9.4 and a platelet count of 173. Sodium is at 134, BUN 65 with a creatinine of 8.5. Potassium levels are 3.8. The patient was seen by nephrology. Scheduled for hemodialysis today. No respiratory distress. The most recent chest x-ray from the time of admission on 10/02/2024 showed a left lower lobe opacity and some atelectatic changes in the lung bases. On 10/06/2024, the patient is doing well. The patient remains on room air oxygen. Underwent hemodialysis yesterday with 1 L of ultrafiltration. Remains on IV Zosyn. He had MSSA in his sputum suspecting a MSSA pneumonia following an acute RSV infection. No new complaints otherwise for now. The white cell count is 13.4 with a hemoglobin of 0.6 and a platelet count of 177. Sodium levels at 131, BUN 35 with a creatinine of 5.9 and a potassium levels of 3.6. Objective - Vital Signs Vital signs: Vital Signs Temp 98.5 F 10/05/24 19:40 Pulse 84 10/06/24 08:24 Resp 18 10/06/24 03:05 BP 144/78 10/06/24 06:28 Pulse Ox 94 L 10/06/24 03:05 FiO2 21 10/04/24 08:07 Intake & Output 10/05/24 10/06/24 10/06/24 18:59 06:59 18:59 Intake Total 1280 500 Output Total 2900 Balance -1620 500 Weight 87.1 kg Intake: IV 20 20 Invasive Line 3 20 20 Oral 360 480 Hemodialysis 900 Output: Urine 0 Hemodialysis 1900 Hemodialysis Net Amount 1000 - Exam The patient appeared well nourished and normally developed. Vital signs as documented. Head exam is unremarkable. No scleral icterus or corneal arcus noted. Neck is without jugular venous distension, thyromegaly, or carotid bruits. Carotid upstrokes are brisk bilaterally. Lungs are clear to auscultation and percussion. Cardiac exam reveals the PMI to be normally sized and situated. Rhythm is regular. First and second heart sounds normal. No murmurs, rubs or gallops. Abdominal exam reveals normal bowel sounds, no masses, no organomegaly and no a ortic enlargement. Extremities are nonedematous and both femoral and pedal pulses are normal. Examination of the skin revealed no evidence of significant rashes, suspicious appearing nevi or other concerning lesions. Neurologically, the patient is awake and alert and the patient does not have any focal neurological deficit. Cranial nerves are essentially intact. - Labs CBC & Chem 7: 10/06/24 05:41 10/06/24 05:41 Labs: Abnormal Lab Results - Last 24 Hours (Table) 10/06/24 10/06/24 10/06/24 Range/Units 05:41 05:41 05:41 WBC 13.47 H (4.50-10.00) 10*3/uL RBC 4.09 L (4.40-5.60) 10*6/uL Hgb 11.6 L (13.0-17.0) g/dL Hct 34.8 L (39.6-50.0) % Immature Gran # 0.09 H (0.00-0.04) 10*3/uL Neutrophils # 11.00 H (1.80-7.70) 10*3/uL Monocytes # 1.23 H (0.20-1.00) 10*3/uL PT 44.3 H (10.0-12.5) sec INR 4.5 H (<1.2) Sodium 131 L (137-145) mmol/L Chloride 96 L (98-107) mmol/L BUN 35 H (9-20) mg/dL Creatinine 5.96 H (0.66-1.25) mg/dL Calcium 8.0 L (8.4-10.2) mg/dL Microbiology - Last 24 Hours (Table) 10/02/24 04:45 Legionella Culture - Preliminary Sputum 10/01/24 20:55 Blood Culture - Preliminary Blood Assessment and Plan Plan: Acute on chronic shortness of breath, possibly secondary to left lower lobe pneumonia. Sputum Staph aureus pneumonia/MSSA post viral infection with RSV. The patient is improved and the patient is currently on room air oxygen. The patient is currently on IV Zosyn. Persistent viral screen positive for RSV. Recent history of RSV infection, with hospitalization between September 25 through September 29. Recent robotic bronchoscopy, September 24, for an 11 x 11 mm lesion, in the lingula. Pathology was negative. There was some atypical cells to suggest malignancy. This will be dealt with a later stage History of end-stage renal disease, with 3 times a week hemodialysis. History of benign essential hypertension. History of chronic atrial fibrillation. The patient's INR is at 4.5 History of renal cell carcinoma. Plan: Respiratory status is stable and the patient is currently on room air oxygen Continue IV Zosyn and transition patient to Augmentin at time of discharge Hemodialysis was performed yesterday and the patient was given a 1 L of ultrafiltration Left lower lobe opacity was biopsied. Nondiagnostic for malignancy although there is an increase suspicion for cancer. This will be dealt at a later stage. Increase mobility Anticoagulation with warfarin, INR is being monitored Nephrology follow-up Will continue to follow Possible discharge today as the patient's overall respiratory status is stable. Time with Patient: Greater than 30
[2024-10-06 11:37] VITALS: BP 123/75; RESP 16
--- NOTE | 2024-10-06 15:10 | P.PN ---
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 History provided by patient and daughter. They state the patient was recently admitted to the hospital last week and diagnosed with RSV. He was discharged home on Saturday. Over the last 2 days he has had progressively worsening shortness of breath. He does live at home with his daughter and today patient's daughter found him having periods where he would appeared to have stopped breathing for about "10 seconds" and then resume breathing again while he was sleeping. He had 1 such episode where he went "unresponsive" but continued breathing throughout. At this point patient's daughter called 911. On their arrival patient was awake and alert and able to ambulate out to the stretcher. Patient currently denies any chest pain or abdominal pain. Endorses shortness of breath. Did have an episode of emesis morning that was nonbloody nonbilious. Was discharged home on methylprednisolone. Does not wear oxygen at home. Missed dialysis last Saturday but has not missed dialysis since then. Patient's daughter denies fevers over the last 2 days. Patient endorses chills. Is on coumadin 2/2 hx a fib. Blood work completed in ED reveals a WBC of 13.5, hemoglobin of 12 and platelet count of 185, sodium 135, potassium 4.1, BUN/creatinine 55/9.19, blood glucose of 150, total bilirubin elevated at 2.2, troponin of 0.044 and CRP of 17 Chest x-ray, appears to show cardiomegaly and left lower lobe infiltrate that appears to be worsened from chest x-ray done on 09/29/2024 - Patient is being admitted with hospital-acquired pneumonia resulting in acute hypoxic respiratory failure and sepsis 10/04/2024 Patient seen and evaluated sitting up in bed; reports marked improvement in breathing; continues to complain of weakness when ambulating in the room -Patient is currently on room air. He is getting saline at 5 cc an hour. Patient underwent hemodialysis on Saturday, October 02, and 1.1 L of fluid was removed. Laboratory shows white count 16.4, hemoglobin 12.1, macro 35.9, and platelet count 210,000. PT was 27, INR 2.7. Sodium 135, potassium 3.7, chloride 97, CO2 23, anion gap 15, BUN 55, creatinine 7.63. Sputum sampling, was positive for presumptive Staph aureus. Precise identification, and sensitivities are pending. The patient is currently on vancomycin. 10/05/2024 Patient is awake alert and oriented x 3. Currently on room air. Denied any complaints of chest pain or shortness of breath. Currently undergoing hemodialysis. Otherwise patient is on droplet precautions for RSV and is also on antibiotics in the form of Zosyn for pneumonia. Patient has been afebrile. No nausea vomiting abdominal pain or diarrhea. Tolerating oral diet. Pulmonary and nephrology is on board. Laboratory data showed WBC 12.0 hemoglobin 11.4 and platelets 173 sodium 134 potassium 3.8 chloride 98 bicarb is 21 BUN 65 creatinine 8.58 and blood sugar 88 and calcium 8.3. Objective - Vital Signs Vital signs: Vital Signs Temp 97.4 F L 10/05/24 18:01 Pulse 96 10/05/24 18:01 Resp 18 10/05/24 18:01 BP 178/104 10/05/24 18:01 Pulse Ox 95 10/05/24 16:05 FiO2 21 10/04/24 08:07 Intake & Output 10/04/24 10/05/24 10/05/24 18:59 06:59 18:59 Intake Total 592 675 4681 Output Total 2900 Balance 360 630 -1620 Weight 88.3 kg Intake: IV 30 20 Invasive Line 1 10 Invasive Line 3 20 20 Oral 360 600 360 Hemodialysis 900 Output: Urine 0 Hemodialysis 1900 Hemodialysis Net Amount 1000 Other: # Voids 0 - Labs CBC & Chem 7: 10/06/24 05:41 10/06/24 05:41 Labs: Abnormal Lab Results - Last 24 Hours (Table) 10/05/24 10/05/24 10/05/24 Range/Units 04:48 04:48 04:48 WBC 12.06 H (4.50-10.00) 10*3/uL RBC 4.14 L (4.40-5.60) 10*6/uL Hgb 11.4 L (13.0-17.0) g/dL Hct 34.9 L (39.6-50.0) % Immature Gran # 0.07 H (0.00-0.04) 10*3/uL Neutrophils # 9.91 H (1.80-7.70) 10*3/uL Lymphocytes # 0.89 L (0.90-5.00) 10*3/uL Monocytes # 1.06 H (0.20-1.00) 10*3/uL PT 32.9 H (10.0-12.5) sec INR 3.3 H (<1.2) Sodium 134 L (137-145) mmol/L Carbon Dioxide 21 L (22-30) mmol/L BUN 65 H (9-20) mg/dL Creatinine 8.58 H* (0.66-1.25) mg/dL Calcium 8.3 L (8.4-10.2) mg/dL Microbiology - Last 24 Hours (Table) 10/02/24 04:45 Legionella Culture - Preliminary Sputum 10/01/24 20:55 Blood Culture - Preliminary Blood Assessment and Plan Assessment: 1. Healthcare acquired pneumonia Acute RSV virus infection -Chest x-ray completed in ED reveals left lower lobe pneumonia; WBC is elevated at 13.3, procalcitonin of 2.45, CRP of 17 - Patient has been placed on IV antibiotics in form of Zosyn and azithromycin - Patient had bronchoscopy completed on 09/24/2024 which is negative for malignancy -Continue with droplet precautions. Titrate down oxygen to room air. 2. Recent history of acute viral infection with RSV; patient was hospitalized from 09/25/2024 till 09/29/2024 3. Lung lesion; patient underwent bronchoscopy on 09/24/2024 for 11 x 11 mm lesion in lingula; pathology has come back negative 4. End-stage renal disease/HD; patient has dialysis schedule of Saturday, Saturday and Saturday; nephrology is following. 5. Atrial fibrillation; chronic; patient is anticoagulated on Coumadin; rate controlled on Coreg 12.5 mg twice daily 6. Hypertension; amlodipine 10 mg daily, Coreg 12.5 mg twice daily, hydralazine 100 mg daily 7. History of renal cell carcinoma DVT prophylaxis; SCDs/Coumadin CODE STATUS; DNR Time with Patient: Greater than 30
[2024-10-06 15:11] VITALS: PULSE 76
[2024-10-06] MEDS ORDERED: WARFARIN 0.5 MG TAB PO ONE (18:00)
--- NOTE | 2024-10-07 00:10 | P.PN ---
Subjective Patient is seen for follow-up for end-stage renal disease. Maintained on Saturday schedule. Scheduled for hemodialysis in a.m. No shortness of breath. 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 - Labs CBC & Chem 7: 10/06/24 05:41 10/06/24 05:41 Labs: Abnormal Lab Results - Last 24 Hours (Table) 10/06/24 10/06/24 10/06/24 Range/Units 05:41 05:41 05:41 WBC 13.47 H (4.50-10.00) 10*3/uL RBC 4.09 L (4.40-5.60) 10*6/uL Hgb 11.6 L (13.0-17.0) g/dL Hct 34.8 L (39.6-50.0) % Immature Gran # 0.09 H (0.00-0.04) 10*3/uL Neutrophils # 11.00 H (1.80-7.70) 10*3/uL Monocytes # 1.23 H (0.20-1.00) 10*3/uL PT 44.3 H (10.0-12.5) sec INR 4.5 H (<1.2) Sodium 131 L (137-145) mmol/L Chloride 96 L (98-107) mmol/L BUN 35 H (9-20) mg/dL Creatinine 5.96 H (0.66-1.25) mg/dL Calcium 8.0 L (8.4-10.2) mg/dL Assessment and Plan Assessment: 1. End-stage renal disease maintained on hemodialysis on Saturday schedule. 2. Acute hypoxic respiratory failure, improved. Most likely from pneumonia 3. Recent RSV infection. 4. Renal cell carcinoma with lung mass. Bronchoscopy done September 24, 2024. 5. Hypertension with chronic kidney disease. 6. Chronic kidney disease mineral bone disease maintained on PhosLo. Plan: Maintain hemodialysis on Saturday schedule Continue with antibiotics for pneumonia Stable for discharge from nephrology standpoint
== END 2024-10-06 15:36 | disposition home or self-care (01) | DRG 871 ==
LOC: EC 18:29 → 3SCARD 20:39
PROVIDERS: ADMIT Hospitalist; ATTEND Hospitalist
PROC: 5A1D70Z Performance of Urinary Filtration, Intermittent, Less than 6 Hours Per Day (ICD-10-PCS; principal; 2024-10-06)
DX: A41.2 Sepsis due to unspecified staphylococcus (principal); J15.20 Pneumonia due to staphylococcus, unspecified; J96.01 Acute respiratory failure with hypoxia; N18.6 End stage renal disease; I12.0 Hypertensive chronic kidney disease with stage 5 chronic kidney disease or end stage renal disease; I24.89 Other forms of acute ischemic heart disease; Z66 Do not resuscitate; E83.9 Disorder of mineral metabolism, unspecified; C34.10 Malignant neoplasm of upper lobe, unspecified bronchus or lung; C64.9 Malignant neoplasm of unspecified kidney, except renal pelvis; Z99.2 Dependence on renal dialysis; J44.0 Chronic obstructive pulmonary disease with (acute) lower respiratory infection; I48.20 Chronic atrial fibrillation, unspecified; K21.9 Gastro-esophageal reflux disease without esophagitis; G47.30 Sleep apnea, unspecified; G89.29 Other chronic pain; F41.9 Anxiety disorder, unspecified; I25.10 Atherosclerotic heart disease of native coronary artery without angina pectoris; I25.2 Old myocardial infarction; Y95 Nosocomial condition; Z79.01 Long term (current) use of anticoagulants; Z79.899 Other long term (current) drug therapy; Z87.442 Personal history of urinary calculi; Z89.022 Acquired absence of left finger(s); Z79.52 Long term (current) use of systemic steroids; Z88.5 Allergy status to narcotic agent
CPT/HCPCS: 36415; 71045; 80048; 80053; 80202; 83605; 83880; 84145; 84484; 85025; 85027; 85610; 85730; 86140; 86706; 87040; 87070; 87077; 87186; 87205; 87340; 87636; 90935; 93005; 94640; 94760; 96361; 96365; 96366; 96367; 96375; 99291